=== PATIENT | female | born 1950 | race Caucasian/White ===

== ENCOUNTER → 2016-10-04 | Outpatient (CLI) | payer MEDICARE, OTHER ==
[2016-10-04 08:13] LABS: Anion Gap 10 mmol/L; Blood Urea Nitrogen 17 mg/dL (7-17); Calcium 9.5 mg/dL (8.4-10.2); Carbon Dioxide 26 mmol/L (22-30); Chloride 105 mmol/L (98-107); Cholesterol 228 mg/dL (<200); Glucose 105 mg/dL (74-99); HDL Cholesterol 63 mg/dL (40-60); Non-African American GFR(MDRD) >60 (>60 ml/min/1.73 sqM); Potassium 4.4 mmol/L (3.5-5.1); Sodium 141 mmol/L (137-145); Triglycerides 120 mg/dL (<150)
[2016-10-04 08:46] LABS: Hemoglobin A1C 6.2 % (4.2-6.1)
== END | disposition home or self-care (01) ==
LOC: LABWHC1 07:06
PROVIDERS: ATTEND Internal Medicine
DX: E78.2 Mixed hyperlipidemia (principal); E11.9 Type 2 diabetes mellitus without complications; I11.9 Hypertensive heart disease without heart failure
CPT/HCPCS: 36415; 80048; 80061; 82043; 83036

== ENCOUNTER → 2016-12-11 | Outpatient (CLI) | payer MEDICARE ==
--- NOTE | 2016-12-11 10:48 | XR ---
EXAMINATION TYPE: XR chest 2V DATE OF EXAM: 12/11/2016 COMPARISON: October 29, 2013 HISTORY: Shortness of breath TECHNIQUE: Frontal and lateral views of the chest are obtained. FINDINGS: Scattered senescent parenchymal changes noted. Hyperinflation compatible with COPD. MediPort catheter is unchanged in position. No evidence for infiltrate. No evidence for atelectasis. Heart size is stable. Mediastinal structures are stable and grossly unremarkable. No evidence for hilar prominence. Degenerative changes dorsal spine. IMPRESSION: 1. No evidence for acute pulmonary disease.
== END | disposition home or self-care (01) ==
LOC: RADXRMAIN 10:11
PROVIDERS: ATTEND Internal Medicine
DX: R07.81 Pleurodynia (principal); Z87.828 Personal history of other (healed) physical injury and trauma
CPT/HCPCS: 71020

== ENCOUNTER → 2017-01-14 | Outpatient (CLI) | payer MEDICARE ==
--- NOTE | 2017-01-14 14:27 | MM ---
Reason for exam: additional evaluation requested from prior study. Last mammogram was performed 1 year and 1 month ago. History: Patient is postmenopausal and has history of breast cancer at age 61. Malignant right mammotome panel of the right breast, July 31, 2012. Chemotherapy, 2012. Mastectomy of the right breast. Taking antineoplastic for 5 years beginning at age 61. Physical Findings: Nurse did not find any significant physical abnormalities on exam. MG 3D Diag Mammo W/Cad LT CC and MLO view(s) were taken of the left breast. Prior study comparison: December 12, 2015, left breast MG 3d diag mammo w/cad LT. October 13, 2014, left breast MG diagnostic mammo LT w CAD. The breast tissue is heterogeneously dense. This may lower the sensitivity of mammography. Benign calcifications. There is no discrete abnormality. No significant new findings when compared with previous films. These results were verbally communicated with the patient and result sheet given to the patient on 01/14/17. ASSESSMENT: Benign, BI-RAD 2 RECOMMENDATION: Follow-up diagnostic mammogram of the left breast in 1 year.
== END | disposition home or self-care (01) ==
LOC: RADMAMWWP 13:48
PROVIDERS: ATTEND Internal Medicine
DX: Z08 Encounter for follow-up examination after completed treatment for malignant neoplasm (principal); Z85.3 Personal history of malignant neoplasm of breast
CPT/HCPCS: G0206; G0279

== ENCOUNTER → 2017-06-25 | Outpatient (CLI) | payer MEDICARE ==
[2017-06-25 10:21] LABS: HCT 41.3 % (34.0-46.0); HGB 13.3 gm/dL (11.4-16.0); MCH 29.2 pg (25.0-35.0); MCHC 32.2 g/dL (31.0-37.0); MCV 90.6 fL (80.0-100.0); Mean Platelet Volume 7.6; Platelet Count 275 k/uL (150-450); RBC 4.56 m/uL (3.80-5.40); RDW 13.4 % (11.5-15.5); WBC 5.7 k/uL (3.8-10.6)
[2017-06-25 10:41] LABS: ALT 22 U/L (9-52); AST 23 U/L (14-36); Albumin 4.2 g/dL (3.5-5.0); Alkaline Phosphatase 85 U/L (38-126); Anion Gap 9 mmol/L; Blood Urea Nitrogen 14 mg/dL (7-17); Calcium 9.6 mg/dL (8.4-10.2); Carbon Dioxide 32 mmol/L (22-30); Chloride 102 mmol/L (98-107); Cholesterol 250 mg/dL (<200); Glucose 100 mg/dL (74-99); HDL Cholesterol 60 mg/dL (40-60); LDL Cholesterol,Calculated 149 mg/dL (0-99); Potassium 4.7 mmol/L (3.5-5.1); Sodium 143 mmol/L (137-145); Total Bilirubin 0.5 mg/dL (0.2-1.3); Total Protein 7.3 g/dL (6.3-8.2); Triglycerides 207 mg/dL (<150)
[2017-06-25 10:57] LABS: T4, Free (Free Thyroxine) 0.98 ng/dL (0.78-2.19)
== END | disposition home or self-care (01) ==
LOC: LABWHC1 09:34
PROVIDERS: ATTEND Internal Medicine
DX: I11.9 Hypertensive heart disease without heart failure (principal); E11.9 Type 2 diabetes mellitus without complications; K21.0 Gastro-esophageal reflux disease with esophagitis
CPT/HCPCS: 36415; 80053; 80061; 82043; 82570; 83036; 84439; 84443; 85027

== ENCOUNTER 2018-04-10 12:45 | Observation (INO) | payer MEDICARE, OTHER ==
[2018-04-10] MEDS ORDERED: ASPIRIN 81 MG PO STA (13:02)
[2018-04-10] MEDS ORDERED: NITROGLYCERIN OINT 1 INCH/GM PACKET TOPICAL STA (13:02)
--- NOTE | 2018-04-10 13:06 | ED ---
General Adult HPI - General Chief complaint: Chest Pain Stated complaint: chest pain Time Seen by Provider: 04/10/18 12:54 Source: patient, RN notes reviewed Mode of arrival: wheelchair Limitations: no limitations - History of Present Illness Initial comments: Patient is a pleasant 67-year-old female presenting to the emergency Department with complaints of chest discomfort. Onset of symptoms was a few days ago. Symptoms have been intermittent. Discomfort is right/central chest. There is some radiation towards the neck and arm. There is some mild associated dyspnea and mild nausea. Dyspnea does worsen with exertion. No history of similar symptoms previously. No diaphoresis. - Related Data Home Medications Medication Instructions Recorded Confirmed Cyanocobalamin (Vitamin B-12) 1,000 mcg PO DAILY 04/10/18 04/10/18 [Vitamin B-12] Losartan Potassium [Cozaar] 100 mg PO HS 04/10/18 04/10/18 Multivitamins, Thera [Multivitamin 1 tab PO DAILY 04/10/18 04/10/18 (formulary)] Allergies Allergy/AdvReac Type Severity Reaction Status Date / Time codeine Allergy Unknown Verified 04/10/18 13:21 meperidine HCl [From Demerol] Allergy Unknown Verified 04/10/18 13:21 morphine Allergy Unknown Verified 04/10/18 13:21 Penicillins Allergy Rash/Hives Verified 04/10/18 13:21 Review of Systems ROS Statement: Those systems with pertinent positive or pertinent negative responses have been documented in the HPI. ROS Other: All systems not noted in ROS Statement are negative. Constitutional: Denies: fever Eyes: Denies: eye pain ENT: Denies: ear pain Respiratory: Reports: as per HPI, dyspnea. Denies: cough Cardiovascular: Reports: as per HPI, chest pain Endocrine: Denies: fatigue Gastrointestinal: Denies: abdominal pain Genitourinary: Denies: dysuria Musculoskeletal: Denies: back pain Skin: Denies: rash Neurological: Denies: weakness Past Medical History Past Medical History: Cancer, Diabetes Mellitus, Hypertension Additional Past Medical History / Comment(s): right breast cancer in remission History of Any Multi-Drug Resistant Organisms: None Reported Past Surgical History: Cholecystectomy Additional Past Surgical History / Comment(s): right mastectomy Past Psychological History: No Psychological Hx Reported Smoking Status: Never smoker Past Alcohol Use History: None Reported Past Drug Use History: None Reported General Exam Limitations: no limitations General appearance: alert, in no apparent distress Head exam: Present: atraumatic Eye exam: Present: normal appearance Neck exam: Present: normal inspection Respiratory exam: Present: normal lung sounds bilaterally. Absent: chest wall tenderness Cardiovascular Exam: Present: regular rate, normal rhythm Expanded Peripheral pulses: 2+: Radial (R), Radial (L), Dorsalis Pedis (R), Dorsalis Pedis (L) GI/Abdominal exam: Present: soft. Absent: tenderness Extremities exam: Present: normal inspection. Absent: pedal edema, calf tenderness Neurological exam: Present: alert Psychiatric exam: Present: normal affect, normal mood Skin exam: Present: normal color Course Vital Signs 04/10/18 04/10/18 12:48 12:59 Temperature 97.9 F Pulse Rate 65 68 Respiratory 18 20 Rate Blood Pressure 186/110 O2 Sat by Pulse 97 97 Oximetry EKG Findings - EKG Comments: EKG Findings:: Normal sinus rhythm 64. OH 168. QRS 96. QT 444. QTC 458. Normal axis. Normal QRS. No acute ST change. Medical Decision Making - Medical Decision Making Patient reevaluated and resting comfortably in bed. Patient and family updated. - Lab Data Result diagrams: 04/10/18 13:10 04/10/18 13:10 Lab Results 04/10/18 04/10/18 04/10/18 Range/Units 13:10 13:10 13:10 WBC 6.1 (3.8-10.6) k/uL RBC 4.56 (3.80-5.40) m/uL Hgb 13.6 (11.4-16.0) gm/dL Hct 42.2 (34.0-46.0) % MCV 92.5 (80.0-100.0) fL MCH 29.8 (25.0-35.0) pg MCHC 32.3 (31.0-37.0) g/dL RDW 13.6 (11.5-15.5) % Plt Count 260 (150-450) k/uL Neutrophils % 55 % Lymphocytes % 35 % Monocytes % 5 % Eosinophils % 3 % Basophils % 0 % Neutrophils # 3.4 (1.3-7.7) k/uL Lymphocytes # 2.1 (1.0-4.8) k/uL Monocytes # 0.3 (0-1.0) k/uL Eosinophils # 0.2 (0-0.7) k/uL Basophils # 0.0 (0-0.2) k/uL PT (9.0-12.0) sec INR (<1.2) APTT (22.0-30.0) sec D-Dimer (<0.60) mg/L FEU Sodium 141 (137-145) mmol/L Potassium 4.1 (3.5-5.1) mmol/L Chloride 106 (98-107) mmol/L Carbon Dioxide 25 (22-30) mmol/L Anion Gap 10 mmol/L BUN 16 (7-17) mg/dL Creatinine 0.66 (0.52-1.04) mg/dL Est GFR (CKD-EPI)AfAm >90 (>60 ml/min/1.73 sqM) Est GFR (CKD-EPI)NonAf >90 (>60 ml/min/1.73 sqM) Glucose 96 (74-99) mg/dL Calcium 9.5 (8.4-10.2) mg/dL Magnesium 2.1 (1.6-2.3) mg/dL Total Bilirubin 0.5 (0.2-1.3) mg/dL AST 22 (14-36) U/L ALT 24 (9-52) U/L Alkaline Phosphatase 73 (38-126) U/L Total Creatine Kinase 37 (30-135) U/L CK-MB (CK-2) 0.6 (0.0-2.4) ng/mL CK-MB (CK-2) Rel Index 1.6 Troponin I <0.012 (0.000-0.034) ng/mL Total Protein 7.3 (6.3-8.2) g/dL Albumin 4.2 (3.5-5.0) g/dL /14/18 Range/Units 13:10 WBC (3.8-10.6) k/uL RBC (3.80-5.40) m/uL Hgb (11.4-16.0) gm/dL Hct (34.0-46.0) % MCV (80.0-100.0) fL MCH (25.0-35.0) pg MCHC (31.0-37.0) g/dL RDW (11.5-15.5) % Plt Count (150-450) k/uL Neutrophils % % Lymphocytes % % Monocytes % % Eosinophils % % Basophils % % Neutrophils # (1.3-7.7) k/uL Lymphocytes # (1.0-4.8) k/uL Monocytes # (0-1.0) k/uL Eosinophils # (0-0.7) k/uL Basophils # (0-0.2) k/uL PT 10.6 (9.0-12.0) sec INR 1.0 (<1.2) APTT 25.8 (22.0-30.0) sec D-Dimer 0.49 (<0.60) mg/L FEU Sodium (137-145) mmol/L Potassium (3.5-5.1) mmol/L Chloride (98-107) mmol/L Carbon Dioxide (22-30) mmol/L Anion Gap mmol/L BUN (7-17) mg/dL Creatinine (0.52-1.04) mg/dL Est GFR (CKD-EPI)AfAm (>60 ml/min/1.73 sqM) Est GFR (CKD-EPI)NonAf (>60 ml/min/1.73 sqM) Glucose (74-99) mg/dL Calcium (8.4-10.2) mg/dL Magnesium (1.6-2.3) mg/dL Total Bilirubin (0.2-1.3) mg/dL AST (14-36) U/L ALT (9-52) U/L Alkaline Phosphatase (38-126) U/L Total Creatine Kinase (30-135) U/L CK-MB (CK-2) (0.0-2.4) ng/mL CK-MB (CK-2) Rel Index Troponin I (0.000-0.034) ng/mL Total Protein (6.3-8.2) g/dL Albumin (3.5-5.0) g/dL - Radiology Data Radiology results: image reviewed (Hip and pelvis and chest x-ray reveal no acute injury.) Disposition Clinical Impression: Contusion, hip Disposition: HOME SELF-CARE Condition: Stable Instructions: Hip Sprain (ED) Additional Instructions: Please follow-up with primary care physician in the next couple days for recheck. Return for weakness, difficulty breathing, other areas of pain or concern or worsening symptoms. [id number] Tylenol if needed. Is patient prescribed a controlled substance at d/c from ED?: No Referrals: Edinson Rebolledo DO [Primary Care Provider] - 1-2 days Time of Disposition: 15:10
--- NOTE | 2018-04-10 13:32 | XR ---
EXAMINATION TYPE: XR chest 2V DATE OF EXAM: 04/10/2018 COMPARISON: Prior chest x-ray 12/11/2016 HISTORY: Right-sided chest pain TECHNIQUE: Frontal and lateral views of the chest are obtained. FINDINGS: Port-A-Cath is again noted the right pectoral region, there is a loop at the level of the m edial aspect of the right clavicle, distal tip of the catheter is overlying the superior vena cava. P atient is rotated. Lung volumes, aeration improved compared to prior. There are overlying cardiac vi ds. There is no focal air space opacity, pleural effusion, or pneumothorax seen. The cardiac silhoue tte size is within normal limits. The osseous structures are intact. IMPRESSION: No acute cardiopulmonary process.
[2018-04-10 13:44] LABS: Basophils % (A) 0 %; Eosinophils # (A) 0.2 k/uL (0-0.7); Eosinophils % (A) 3 %; HCT 42.2 % (34.0-46.0); HGB 13.6 gm/dL (11.4-16.0); Lymphocytes # (A) 2.1 k/uL (1.0-4.8); Lymphocytes % (A) 35 %; MCH 29.8 pg (25.0-35.0); MCHC 32.3 g/dL (31.0-37.0); MCV 92.5 fL (80.0-100.0); Mean Platelet Volume 7.2; Monocytes # (A) 0.3 k/uL (0-1.0); Monocytes % (A) 5 %; Neutrophils # (A) 3.4 k/uL (1.3-7.7); Neutrophils % (A) 55 %; Platelet Count 260 k/uL (150-450); RBC 4.56 m/uL (3.80-5.40); RDW 13.6 % (11.5-15.5); WBC 6.1 k/uL (3.8-10.6)
[2018-04-10 14:01] LABS: D-Dimer 0.49 mg/L FEU (<0.60); Partial Thromboplastin Time 25.8 sec (22.0-30.0); Prothrombin Time 10.6 sec (9.0-12.0)
[2018-04-10 14:04] LABS: ALT 24 U/L (9-52); AST 22 U/L (14-36); Albumin 4.2 g/dL (3.5-5.0); Alkaline Phosphatase 73 U/L (38-126); Anion Gap 10 mmol/L; Blood Urea Nitrogen 16 mg/dL (7-17); Calcium 9.5 mg/dL (8.4-10.2); Carbon Dioxide 25 mmol/L (22-30); Chloride 106 mmol/L (98-107); Creatine Kinase 37 U/L (30-135); Glucose 96 mg/dL (74-99); Magnesium 2.1 mg/dL (1.6-2.3); Potassium 4.1 mmol/L (3.5-5.1); Sodium 141 mmol/L (137-145); Total Bilirubin 0.5 mg/dL (0.2-1.3); Total Protein 7.3 g/dL (6.3-8.2)
[2018-04-10 14:17] LABS: Creatine Kinase MB 0.6 ng/mL (0.0-2.4); Troponin I <0.012 ng/mL (0.000-0.034)
[2018-04-10] MEDS ORDERED: NITROGLYCERIN SL TABS 0.4 MG TAB SUBLINGUAL PRN (16:00)
--- NOTE | 2018-04-10 16:00 | ED ---
Medical Decision Making - Medical Decision Making Patient reevaluated and resting comfortably in bed. No significant discomfort at this time. Patient and family updated on results and plan. Case was discussed with Dr. gonzalez, who will admit covering for Dr. Erazo - Lab Data Result diagrams: 04/10/18 13:10 04/10/18 13:10 Lab Results 04/10/18 04/10/18 04/10/18 Range/Units 13:10 13:10 13:10 WBC 6.1 (3.8-10.6) k/uL RBC 4.56 (3.80-5.40) m/uL Hgb 13.6 (11.4-16.0) gm/dL Hct 42.2 (34.0-46.0) % MCV 92.5 (80.0-100.0) fL MCH 29.8 (25.0-35.0) pg MCHC 32.3 (31.0-37.0) g/dL RDW 13.6 (11.5-15.5) % Plt Count 260 (150-450) k/uL Neutrophils % 55 % Lymphocytes % 35 % Monocytes % 5 % Eosinophils % 3 % Basophils % 0 % Neutrophils # 3.4 (1.3-7.7) k/uL Lymphocytes # 2.1 (1.0-4.8) k/uL Monocytes # 0.3 (0-1.0) k/uL Eosinophils # 0.2 (0-0.7) k/uL Basophils # 0.0 (0-0.2) k/uL PT (9.0-12.0) sec INR (<1.2) APTT (22.0-30.0) sec D-Dimer (<0.60) mg/L FEU Sodium 141 (137-145) mmol/L Potassium 4.1 (3.5-5.1) mmol/L Chloride 106 (98-107) mmol/L Carbon Dioxide 25 (22-30) mmol/L Anion Gap 10 mmol/L BUN 16 (7-17) mg/dL Creatinine 0.66 (0.52-1.04) mg/dL Est GFR (CKD-EPI)AfAm >90 (>60 ml/min/1.73 sqM) Est GFR (CKD-EPI)NonAf >90 (>60 ml/min/1.73 sqM) Glucose 96 (74-99) mg/dL Calcium 9.5 (8.4-10.2) mg/dL Magnesium 2.1 (1.6-2.3) mg/dL Total Bilirubin 0.5 (0.2-1.3) mg/dL AST 22 (14-36) U/L ALT 24 (9-52) U/L Alkaline Phosphatase 73 (38-126) U/L Total Creatine Kinase 37 (30-135) U/L CK-MB (CK-2) 0.6 (0.0-2.4) ng/mL CK-MB (CK-2) Rel Index 1.6 Troponin I <0.012 (0.000-0.034) ng/mL Total Protein 7.3 (6.3-8.2) g/dL Albumin 4.2 (3.5-5.0) g/dL // Range/Units 13:10 WBC (3.8-10.6) k/uL RBC (3.80-5.40) m/uL Hgb (11.4-16.0) gm/dL Hct (34.0-46.0) % MCV (80.0-100.0) fL MCH (25.0-35.0) pg MCHC (31.0-37.0) g/dL RDW (11.5-15.5) % Plt Count (150-450) k/uL Neutrophils % % Lymphocytes % % Monocytes % % Eosinophils % % Basophils % % Neutrophils # (1.3-7.7) k/uL Lymphocytes # (1.0-4.8) k/uL Monocytes # (0-1.0) k/uL Eosinophils # (0-0.7) k/uL Basophils # (0-0.2) k/uL PT 10.6 (9.0-12.0) sec INR 1.0 (<1.2) APTT 25.8 (22.0-30.0) sec D-Dimer 0.49 (<0.60) mg/L FEU Sodium (137-145) mmol/L Potassium (3.5-5.1) mmol/L Chloride (98-107) mmol/L Carbon Dioxide (22-30) mmol/L Anion Gap mmol/L BUN (7-17) mg/dL Creatinine (0.52-1.04) mg/dL Est GFR (CKD-EPI)AfAm (>60 ml/min/1.73 sqM) Est GFR (CKD-EPI)NonAf (>60 ml/min/1.73 sqM) Glucose (74-99) mg/dL Calcium (8.4-10.2) mg/dL Magnesium (1.6-2.3) mg/dL Total Bilirubin (0.2-1.3) mg/dL AST (14-36) U/L ALT (9-52) U/L Alkaline Phosphatase (38-126) U/L Total Creatine Kinase (30-135) U/L CK-MB (CK-2) (0.0-2.4) ng/mL CK-MB (CK-2) Rel Index Troponin I (0.000-0.034) ng/mL Total Protein (6.3-8.2) g/dL Albumin (3.5-5.0) g/dL - Radiology Data Radiology results: image reviewed (Chest x-ray shows no acute process) Disposition Clinical Impression: Chest pain Disposition: ADMITTED IP TO THIS HOSP Is patient prescribed a controlled substance at d/c from ED?: No Referrals: Edinson Rebolledo DO [Primary Care Provider] - 1-2 days Decision Time: 15:59
[2018-04-10] MEDS ORDERED: ATENOLOL 25 MG TAB PO STA (16:04)
[2018-04-10] MEDS ORDERED: TEMAZEPAM 15 MG CAP PO PRN (18:59)
[2018-04-10] MEDS: NITROGLYCERIN OINT 1 INCH/GM PACKET TOPICAL SCH (19:00)
[2018-04-10 19:27] LABS: Creatine Kinase 28 U/L (30-135)
[2018-04-10 19:39] LABS: Creatine Kinase MB 0.4 ng/mL (0.0-2.4); Troponin I <0.012 ng/mL (0.000-0.034)
--- NOTE | 2018-04-10 20:34 | HP ---
HISTORY AND PHYSICAL DATE OF SERVICE: 04/10/2018 CHIEF COMPLAINTS: Dizziness and headache. HISTORY OF PRESENT ILLNESS: This 67-year-old woman with a past medical history of asthma, diabetes, hypertension, DJD being followed by Dr. Rebolledo in the outpatient setting, was complaining of headache for the last couple of days. Patient felt also dizzy. Patient has episodes of short-term memory loss also 2 days ago. Otherwise, currently the patient complaining of right-sided chest pain around the site of her port and right shoulder, right upper arm pain, right neck pain. The patient came to [facility] and was admitted for further evaluation and treatment. There is no history of fever, rigors or chills. No history of any hematochezia, melena. PAST HISTORY: Asthma, diabetes, hypertension, DJD, sleep apnea, history of right breast cancer. MEDICATIONS ARE: 1. Multivitamins 1 p.o. daily. 2. Cozaar 100 mg q.h.s. 3. Vitamin B12 1000 mcg p.o. daily. ALLERGIES: CODEINE, DEMEROL, MORPHINE, PENICILLIN. FAMILY HISTORY: No history of heart disease or strokes in the family. SOCIAL HISTORY: Previous history of smoking. No history of alcohol intake. REVIEW OF SYSTEMS: ENT: As mentioned earlier. CARDIOVASCULAR as mentioned earlier. RESPIRATORY: As mentioned earlier. GI: No nausea or vomiting. no dysuria. CENTRAL NERVOUS SYSTEM: No numbness, weakness. ALLERGY/IMMUNOLOGY: No asthma or hayfever. MUSCULOSKELETAL as mentioned earlier. HEMATOLOGY/ONCOLOGY: No history of anemia. ENDOCRINE: No history of diabetes or hypothyroidism. CONSTITUTIONAL: As mentioned earlier. DERMATOLOGY: Negative. RHEUMATOLOGY: Negative. PSYCHIATRY: As mentioned earlier. PHYSICAL EXAM: Patient is alert, oriented x3. The pulse is 65, blood pressure 119/70, respiration 18, temperature 97.2, pulse ox 97% on room air. HEENT: Conjunctivae normal. Oral mucosa moist. NECK is no jugular venous distention. No carotid bruit. No lymph node enlargement. Cardiovascular system: S1, S2 muffled. RESPIRATORY: Breath sounds diminished in the bases. No rhonchi. No crackles. ABDOMEN: Soft, nontender. No mass palpable. LEGS: No edema. No swelling. Nervous system: Higher functions as mentioned earlier. Moves all four extremities. No focal deficits. Lymphatics: No lymph nodes palpable in the neck, axillae or groin. SKIN: No ulcer, rash or bleeding. LABS: CBC within normal limits. INR 1. CMP within normal limits. ASSESSMENT: 1. Chest pain possible unstable angina. 2. Rule out transient ischemic attack. 3. History of hypertension. 4. Asthma. 5. Diabetes mellitus type 2. 6. Degenerative joint disease. 7. Sleep apnea. 8. History of right breast cancer. 9. Right chest Port-A-Cath. 10.History of bariatric surgery. 11.History of cholecystectomy. RECOMMENDATIONS AND DISCUSSION: In this 67-year-old woman who presented with multiple medical problems. We will monitor the patient closely, continue the current medications, management and symptomatic treatment. At this time, I recommend resume the home medications. Unstable angina protocol. Antiplatelet agents. Otherwise, I would also recommend close follow up with Cardiology and Neurology. Guarded prognosis. Further recommendations to follow. A copy of dictation being forwarded to Dr. Rebolledo who is the primary physician. We will also obtain a full neurovascular workup as well. Further recommendations to follow. MMODL / IJN: [id number] / MTDD
[2018-04-10] MEDS ORDERED: ACETAMINOPHEN TAB 325 MG TAB PO STA (20:59)
--- NOTE | 2018-04-10 21:00 | US ---
EXAMINATION TYPE: US carotid duplex BILAT DATE OF EXAM: 04/10/2018 COMPARISON: CT Brain 2012 CLINICAL HISTORY: stroke. Headache, right arm and chest pain, twitching sensation to face and lips, m shira loss; prior smoker (quit 1984 per patient) EXAM MEASUREMENTS: RIGHT: Peak Systolic Velocity (PSV) cm/sec ----- Right CCA: 71.1 ----- Right ICA: 74.0 ----- Right ECA: 36.7 ICA/CCA ratio: 1.0 RIGHT: End Diastole cm/sec ----- Right CCA: 11.5 ----- Right ICA: 15.9 ----- Right ECA: 0.0 LEFT: Peak Systolic Velocity (PSV) cm/sec ----- Left CCA: 68.0 ----- Left ICA: 80.9 ----- Left ECA: 54.5 ICA/CCA ratio: 1.2 LEFT: End Diastole cm/sec ----- Left CCA: 10.9 ----- Left ICA: 16.0 ----- Left ECA: 0.0 VERTEBRALS (direction of flow): Right Vertebral: Antegrade Left Vertebral: Antegrade Rhythm: Normal Mild to moderate mixed wall plaque is noted at bilateral carotid bifurcation, but PSV is wnl bilatera lly. IMPRESSION: There is antegrade flow in the vertebral arteries. The images and measurements suggest 3 0% stenosis in both internal carotid arteries. Criteria for Assigning % of Stenosis / Diameter reduction (Estimation based on the indirect measurements of the internal carotid artery velocities (ICA PSV). 1. Normal (no stenosis)=ICA PSV < 125 cm/s: ratio < 2.0: ICA EDV<40 cm/s. 2. Less than 50% stenosis=ICA PSV < 125 cm/s: ratio < 2.0: ICA EDV<40 cm/s. 3. 50 to 69% stenosis=ICA PSV of 125 to 230 cm/s: ration 2.0 ? 4.0: ICA EDV 40-100 cm/s. 4. Greater than 70% stenosis to near occlusion= ICA PSV > 230 cm/s: ratio > 4.0: ICA EDV > 100 cm/s. 5. Near occlusion= ICA PSV velocities may be low or undetectable: variable ratio and ICA EDV. 6. Total occlusion=unable to detect flow.
[2018-04-10] MEDS: HEPARIN SODIUM,PORCINE 5,000 UNIT/ML 1 ML VIAL SQ SCH (21:05)
[2018-04-10] MEDS: LOSARTAN 50 MG TAB PO SCH (21:30)
[2018-04-10] MEDS: ALPRAZolam 0.25 MG TAB PO PRN (22:45)
[2018-04-11] MEDS: NITROGLYCERIN OINT 1 INCH/GM PACKET TOPICAL SCH ×2 (01:27→06:49)
[2018-04-11 01:51] LABS: Creatine Kinase 25 U/L (30-135)
[2018-04-11 02:02] LABS: Creatine Kinase MB 0.6 ng/mL (0.0-2.4); Troponin I <0.012 ng/mL (0.000-0.034)
[2018-04-11 06:41] LABS: Basophils % (A) 1 %; Eosinophils # (A) 0.2 k/uL (0-0.7); Eosinophils % (A) 3 %; HCT 40.7 % (34.0-46.0); HGB 12.8 gm/dL (11.4-16.0); Lymphocytes # (A) 1.9 k/uL (1.0-4.8); Lymphocytes % (A) 35 %; MCH 29.1 pg (25.0-35.0); MCHC 31.5 g/dL (31.0-37.0); MCV 92.3 fL (80.0-100.0); Mean Platelet Volume 7.4; Monocytes # (A) 0.3 k/uL (0-1.0); Monocytes % (A) 5 %; Neutrophils % (A) 55 %; Platelet Count 244 k/uL (150-450); RDW 13.5 % (11.5-15.5); WBC 5.4 k/uL (3.8-10.6)
[2018-04-11] MEDS: PANTOPRAZOLE 40 MG TABLET PO SCH (06:49)
[2018-04-11 07:06] LABS: Anion Gap 7 mmol/L; Blood Urea Nitrogen 16 mg/dL (7-17); Calcium 9.3 mg/dL (8.4-10.2); Carbon Dioxide 26 mmol/L (22-30); Chloride 106 mmol/L (98-107); Cholesterol 242 mg/dL (<200); Glucose 102 mg/dL (74-99); HDL Cholesterol 49 mg/dL (40-60); LDL Cholesterol,Calculated 147 mg/dL (0-99); Potassium 4.3 mmol/L (3.5-5.1); Sodium 139 mmol/L (137-145); Triglycerides 232 mg/dL (<150)
[2018-04-11] MEDS: HEPARIN SODIUM,PORCINE 5,000 UNIT/ML 1 ML VIAL SQ SCH ×2 (07:35→20:05)
[2018-04-11] MEDS: CYANOCOBALAMIN 500 MCG TAB PO SCH (07:35)
[2018-04-11] MEDS: ASPIRIN 325 MG TAB PO SCH (07:35)
--- NOTE | 2018-04-11 09:40 | ECHOF ---
Referral Reason:Stroke MEASUREMENTS -------- HEIGHT: 165.1 cm WEIGHT: 90.7 kg BP: RVIDd: 3.1 cm (< 3.3) IVSd: 1.6 cm (0.6 - 1.1) LVIDd: 4.3 cm (3.9 - 5.3) LVPWd: 1.5 cm (0.6 - 1.1) IVSs: 1.9 cm LVIDs: 2.0 cm LVPWs: 2.2 cm LAESV Index (A-L): 29.23 ml/m Ao Diam: 3.5 cm (2.0 - 3.7) AV Cusp: 2.3 cm (1.5 - 2.6) LA Diam: 3.1 cm (2.7 - 3.8) MV EXCURSION: 14.230 mm (> 18.000) MV EF SLOPE: 64 mm/s (70 - 150) EPSS: 0.3 cm MV E Chang: 0.90 m/s MV DecT: 296 ms MV A Chang: 1.26 m/s MV E/A Ratio: 0.71 RAP: 5.00 mmHg RVSP: 33.50 mmHg FINDINGS -------- Sinus rhythm. This was a technically good study. The left ventricular size is normal. There is moderate concentric left ventricular hypertrophy. O verall left ventricular systolic function is normal with, an EF between 55 - 60 %. The right ventricle is normal in size. LA is midly dilated 29-33ml/m2. The right atrium is normal in size. The aortic valve is trileaflet and appears structurally normal. The mitral valve leaflets are mildly thickened. Mild mitral regurgitation is present. Mild tricuspid regurgitation present. The right ventricular systolic pressure, as measured by Doppl er, is 33.50mmHg. The pulmonic valve was not well visualized. The aortic root size is normal. Normal inferior vena cava with normal inspiratory collapse consistent with estimated right atrial pre ssure of 5 mmHg. The pericardium is normal. CONCLUSIONS -------- 1. Sinus rhythm. 2. This was a technically good study. 3. The left ventricular size is normal. 4. There is moderate concentric left ventricular hypertrophy. 5. Overall left ventricular systolic function is normal with, an EF between 55 - 60 %. 6. The right ventricle is normal in size. 7. LA is midly dilated 29-33ml/m2. 8. The right atrium is normal in size. 9. The aortic valve is trileaflet and appears structurally normal. 10. The mitral valve leaflets are mildly thickened. 11. Mild mitral regurgitation is present. 12. Mild tricuspid regurgitation present. 13. The right ventricular systolic pressure, as measured by Doppler, is 33.50mmHg. 14. The pulmonic valve was not well visualized. 15. The aortic root size is normal. 16. Normal inferior vena cava with normal inspiratory collapse consistent with estimated right atrial pressure of 5 mmHg. 17. The pericardium is normal. HAM CURER: Ellie Collins RDCS
[2018-04-11] MEDS: ALPRAZolam 0.25 MG TAB PO PRN (10:55)
[2018-04-11] MEDS: MULTIVITAMINS, THERA 1 EACH TAB PO SCH (12:45)
[2018-04-11] MEDS: ATORVASTATIN 40 MG TAB PO SCH (12:45)
[2018-04-11] MEDS: amLODIPine 5 MG TAB PO SCH (13:59)
--- NOTE | 2018-04-11 14:39 | P.CONS ---
History of Present Illness - Reason for Consult Consult date: 04/11/18 TIA - Chief Complaint Episode of short-term memory loss - History of Present Illness This pleasant 67-year-old female being evaluated by the neurology service for the above complaints. She came to the [facility] emergency room with some central to right sided chest pain happening over the last couple days. In the ER she gave a history of an episode about 2 days ago lasting several minutes where she could not remember the name of a person whom she cares for daily for the last 5 years. She has had a mild to moderate band type headache for about 5 days now. She has significant history of breast cancer in by her history she admits she has not followed up as she should with Dr. Hall. She does have a port on the right side of the chest which she says should've been taken out by now. She had a normal echocardiogram. CT of the head was done and showed no acute intracranial abnormalities. At the time my exam she is resting comfortably in bed in no acute distress. She has no new neurological symptoms. Review of Systems All systems: negative Constitutional: Reports as per HPI Past Medical History Past Medical History: Asthma, Cancer, Diabetes Mellitus, Hypertension, Osteoarthritis (OA), Sleep Apnea/CPAP/BIPAP Additional Past Medical History / Comment(s): 2012 right breast cancer had sx and chemo (in remission),diabetic retinopathy,upper gi bleed/anemia, back pain.migarines,meneirs disease, bronchitis. eileen-no longer muses cpap, occ sinus problems, 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 benedicto wrist fx- no sx only casted. History of Any Multi-Drug Resistant Organisms: None Reported Past Surgical History: Bariatric Surgery, Cholecystectomy Additional Past Surgical History / Comment(s): rt breast core bx,right mastectomy, tummy tuck, liposuction,hiatal hernia repair Past Anesthesia/Blood Transfusion Reactions: Postoperative Nausea & Vomiting ( PONV) Past Psychological History: No Psychological Hx Reported Smoking Status: Former smoker Past Alcohol Use History: None Reported Additional Past Alcohol Use History / Comment(s): started smoking 1965 and quit 1983 smoked 1/2 ppd Past Drug Use History: None Reported - Past Family History Father History Unknown: Yes Mother History Unknown: Yes Medications and Allergies Home Medications Medication Instructions Recorded Confirmed Type Cyanocobalamin (Vitamin B-12) 1,000 mcg PO DAILY 04/10/18 04/10/18 History [Vitamin B-12] Losartan Potassium [Cozaar] 100 mg PO HS 04/10/18 04/10/18 History Multivitamins, Thera [Multivitamin 1 tab PO DAILY 04/10/18 04/10/18 History (formulary)] Allergies Allergy/AdvReac Type Severity Reaction Status Date / Time codeine Allergy Unknown Verified 04/10/18 13:21 meperidine HCl [From Demerol] Allergy Unknown Verified 04/10/18 13:21 morphine Allergy Unknown Verified 04/10/18 13:21 Penicillins Allergy Rash/Hives Verified 04/10/18 13:21 Physical Exam Vitals: Vital Signs Temp Pulse Pulse Resp BP BP Pulse Ox 04/11/18 12:48 172/84 04/11/18 12:00 59 L 18 172/91 94 L 04/11/18 07:31 97.7 F 56 L 18 155/88 94 L 04/11/18 04:00 65 16 108/64 99 04/10/18 23:11 68 16 04/10/18 23:09 97.8 F 68 16 128/65 99 04/10/18 22:16 97.9 F 56 L 18 130/79 95 04/10/18 21:02 97.9 F 61 18 142/82 94 L 04/10/18 19:18 98.7 F 59 L 18 140/83 94 L 04/10/18 17:03 85 18 150/88 99 04/10/18 15:57 70 18 156/103 94 L Intake and Output 04/10/18 04/11/18 04/11/18 22:59 06:59 14:59 Intake Total 480 600 Balance 480 600 Intake: Oral 480 600 Other: Voiding Method Toilet # Voids 2 1 Weight 93.3 kg - Constitutional General appearance: average body habitus, cooperative, no acute distress - EENT Eyes: no abnormal pupil, EOMI, PERRLA, no ptosis ENT: hearing grossly normal - Neck Neck: no normal ROM, rigidity - Respiratory Respiratory: negative: prolonged expiration, prolonged inspiration - Cardiovascular Rhythm: regular - Gastrointestinal General gastrointestinal: no distended, no tenderness - Neurologic The patient is alert awake and oriented 3. Speech and language are normal. There is no facial asymmetry. Strength is 5 out of 5 in bilateral upper and lower extremities. There is no sensory deficit. No tremors or seizures are seen. Cranial nerves II through XII are intact globally. Results CBC & Chem 7: 04/11/18 05:56 04/11/18 05:56 Labs: Abnormal Lab Results - Last 24 Hours (Table) 04/10/18 04/11/18 04/11/18 Range/Units 18:52 00:52 05:56 Glucose 102 H (74-99) mg/dL Total Creatine Kinase 28 L 25 L (30-135) U/L Triglycerides 232 H (<150) mg/dL Cholesterol 242 H (<200) mg/dL LDL Cholesterol, Calc 147 H (0-99) mg/dL Assessment and Plan (1) TIA (transient ischemic attack) Current Visit: Yes Status: Suspected Code(s): G45.9 - TRANSIENT CEREBRAL ISCHEMIC ATTACK, UNSPECIFIED SNOMED Code(s): 185721032 (2) Hyperlipidemia Current Visit: Yes Status: Chronic Code(s): E78.5 - HYPERLIPIDEMIA, UNSPECIFIED SNOMED Code(s): 55758043 (3) Diabetes Current Visit: Yes Status: Chronic Code(s): E11.9 - TYPE 2 DIABETES MELLITUS WITHOUT COMPLICATIONS SNOMED Code(s): 29950268 (4) History of breast cancer Current Visit: Yes Status: Chronic Code(s): Z85.3 - PERSONAL HISTORY OF MALIGNANT NEOPLASM OF BREAST SNOMED Code(s): 613869439 (5) New persistent daily headache Current Visit: Yes Status: Acute Code(s): G44.52 - NEW DAILY PERSISTENT HEADACHE (NDPH) SNOMED Code(s): 000852015483321 (6) Port-A-Cath in place Current Visit: Yes Status: Chronic Code(s): Z95.828 - PRESENCE OF OTHER VASCULAR IMPLANTS AND GRAFTS SNOMED Code(s): 032520274 (7) Chest pain Current Visit: Yes Status: Acute Code(s): R07.9 - CHEST PAIN, UNSPECIFIED SNOMED Code(s): 62657871 Plan: Her symptoms are consistent with a subacute transient ischemic attack. Continue Lipitor and aspirin at current doses. Continue investigation into reason for her right-sided chest and arm pain. For her persistent headaches and a person without a history of headaches, and given her history of cancer, I will order an MRI of the brain with and without contrast. We will continue to follow and make recommendations based on the above studies. I have performed a history and physical on the above patient. I have reviewed the above note, and agree.
--- NOTE | 2018-04-11 15:58 | MR ---
EXAMINATION TYPE: MR brain wo/w con DATE OF EXAM: 04/11/2018 COMPARISON: None HISTORY: Headache, facial numbness, hx breast ca TECHNIQUE: Multiplanar, multisequence images of the brain and brainstem is performed without and with IV contras t, utilizing 9 mL intravenous Gadavist . FINDINGS: There is mild cerebral cortical atrophy. There is no mass effect nor midline shift. There i s no sign of intracranial hemorrhage. There is no evidence of cortical infarct. There are scattered F LAIR image foci of increased signal at the arce-white matter junction both cerebral hemispheres. Tota l number is approximately 10 in these measure up to 5 mm. The brainstem is intact. Corpus callosum is intact. Sella turcica appears normal. Contrast images show no pathologic enhancement. There is normal contrast opacification of the venous sinuses. There is mucus retention cyst in the right maxillary sinus. IMPRESSION: Scattered small white matter high signal foci are nonspecific and probably related to mil d chronic small vessel ischemia. No acute intracranial abnormality. No evidence of metastatic disease . Minimal cerebral atrophy.
[2018-04-11 20:01] VITALS: RESP 16
[2018-04-11] MEDS: LOSARTAN 50 MG TAB PO SCH (20:05)
--- NOTE | 2018-04-11 22:26 | PN ---
PROGRESS NOTE DATE OF SERVICE: 04/11/2018 DATE OF SERVICE: This 67-year-old woman who was admitted with multiple symptomatology including chest pain, features of TIA, is being closely monitored. MRI did not show an acute stroke. The lipids were elevated. Neurology and cardiology following the patient closely. EXAM: Alert and oriented x3. Pulse 62, blood pressure 139/77, respirations 18, temperature 97.7, pulse ox 94% on room air. HEENT: Conjunctivae normal. Neck: No jugular venous distention. Cardiovascular: S1, S2 muffled. Respirations: Breath sounds diminished in the bases. No rhonchi. No crackles. Abdomen is soft. Nervous system: No focal deficits. LABORATORY DATA: CBC, BMP within normal limits and triglycerides are 232. Cholesterol 242. ASSESSMENT: 1. Chest pain possible unstable angina, myocardial infarction ruled out. 2. Possible acute transient ischemic attack. 3. Right-sided chest pain for evaluation. 4. Hypertension. 5. Asthma. 6. Diabetes mellitus type 2. 7. Degenerative joint disease. 8. Sleep apnea. 9. History of right breast cancer. 10.History of right chest Port-A-Cath. 11.History of bariatric surgery. 12.History of cholecystectomy. RECOMMENDATIONS AND DISCUSSION: Recommend to continue current management. Continue with monitoring, symptomatic treatment. I recommend D-dimer and if it is positive, a CT angio of the chest. Otherwise, prognosis guarded because of multiple complex medical issues and further recommendations to follow. MMODL / IJN: [id number] /
--- NOTE | 2018-04-11 23:14 | CONS ---
CONSULTATION Eden Pavon is a 67-year-old lady with a history of breast cancer. This lady apparently has a port on the right side of her chest for chemotherapy and she came into the hospital complaining of right-sided chest pain, especially tenderness and pain around her port site. However, she also had some right lateral chest discomfort and midsternal mild sharp pain and also there was some radiation to the neck as well and with these symptoms, she came into the hospital and I was asked to see her to assess if this pain represents any myocardial ischemia. She is resting comfortably at the time of my evaluation, and I had a detailed history from her. The quality of her pain seems very atypical, localized around the port area. There is no actual tenderness. She has no actual tenderness. There is some amount of neck discomfort but that does not seem to be connected. There are no signs of inflammation. This patient also had a D-dimer that was unremarkable and an echocardiogram was performed which I reviewed, revealed normal systolic function without any significant abnormalities. There is no significant pulmonary hypertension. She is resting comfortably without symptoms and troponins are normal. PAST MEDICAL HISTORY: 1. Hypertension. 2. History of breast cancer status post chemotherapy and she has a port. 3. She also has type 2 diabetes mellitus. 4. She is status post cholecystectomy. MEDICATIONS: At home include vitamin supplements, losartan, multivitamins. PHYSICAL EXAMINATION: Blood pressure was 150/80, pulse rate is about 70 per minute, regular. HEENT unremarkable. Fundus was not examined by me. Neck is supple. No JVD. I do not hear a carotid bruit. There is no thyromegaly. Heart exam reveals S1, S2 heard normally without a rub, murmur or gallop. There is no significant tenderness at the site of her port. Lungs are clear. Abdomen is soft, nontender. Lower extremities reveal normal pulses. No edema. Central nervous system is normal. EKG revealed sinus mechanism, no acute changes. LABORATORY DATA: Reveals that the troponins are normal. There is elevated cholesterol. No other significant abnormalities were detected. IMPRESSION: 1. Atypical chest pain. 2. Hypertension. 3. Hypercholesterolemia with LDL cholesterol of 147. RECOMMENDATIONS: I am recommending no intervention is necessary at this time. The patient can be discharged and I will be happy to see her as an outpatient and perform stress testing. If the port location continues to bother her, she can talk to her oncologist and have her port removed since she does not require any additional chemotherapy. I will recommend atorvastatin 20 mg daily in view of her hypercholesterolemia. Thank you very much for the consult. I will see her as needed. ERICK / SHILPI: [id number] /
[2018-04-12] MEDS: PANTOPRAZOLE 40 MG TABLET PO SCH (06:32)
[2018-04-12 07:00] LABS: Basophils % (A) 0 %; Eosinophils # (A) 0.1 k/uL (0-0.7); Eosinophils % (A) 2 %; HCT 40.4 % (34.0-46.0); HGB 12.9 gm/dL (11.4-16.0); Lymphocytes % (A) 33 %; MCH 29.7 pg (25.0-35.0); MCHC 31.9 g/dL (31.0-37.0); Mean Platelet Volume 7.2; Monocytes # (A) 0.4 k/uL (0-1.0); Monocytes % (A) 6 %; Neutrophils # (A) 3.4 k/uL (1.3-7.7); Neutrophils % (A) 56 %; Platelet Count 254 k/uL (150-450); RBC 4.34 m/uL (3.80-5.40); RDW 13.6 % (11.5-15.5); WBC 6.1 k/uL (3.8-10.6)
[2018-04-12 07:16] LABS: Anion Gap 4 mmol/L; Blood Urea Nitrogen 19 mg/dL (7-17); Calcium 9.1 mg/dL (8.4-10.2); Carbon Dioxide 29 mmol/L (22-30); Chloride 107 mmol/L (98-107); Glucose 101 mg/dL (74-99); Potassium 4.4 mmol/L (3.5-5.1); Sodium 140 mmol/L (137-145)
[2018-04-12] MEDS: HEPARIN SODIUM,PORCINE 5,000 UNIT/ML 1 ML VIAL SQ SCH (07:46)
[2018-04-12] MEDS: CYANOCOBALAMIN 500 MCG TAB PO SCH (07:46)
[2018-04-12] MEDS: amLODIPine 5 MG TAB PO SCH (07:46)
[2018-04-12] MEDS: ATORVASTATIN 40 MG TAB PO SCH (07:46)
[2018-04-12] MEDS: ASPIRIN 325 MG TAB PO SCH (07:46)
[2018-04-12] MEDS: ALPRAZolam 0.25 MG TAB PO PRN (07:46)
--- NOTE | 2018-04-12 11:51 | P.PN ---
Subjective Progress Note Date: 04/12/18 Principal diagnosis: TIA This pleasant 59-year-old female continuing be evaluated by the neurology service for the above complaints. Recall that her presenting symptom was right sided chest pain happening over a period of 2 days. She is still undergoing evaluation for this. She has significant history of right sided breast cancer she had undergone chemotherapy and still has a Port-A-Cath and. She indicated that it was already supposed to been taken out that she missed her appointment. No further neurological changes since my last exam. Cause of her history and some new headache activity we did an MRI of the brain. There were no acute intracranial abnormalities. There was no evidence of metastatic disease. She did have some nonspecific chronic small vessel ischemic changes. This was mild. At the time of my exam she is resting comfortably in bed in no acute distress. Objective - Vital Signs Vital signs: Vital Signs Temp 97.9 F 04/12/18 04:00 Pulse 68 04/12/18 04:00 Resp 16 04/12/18 04:00 BP 116/80 04/12/18 04:00 Pulse Ox 100 04/12/18 04:00 Intake & Output 04/11/18 04/12/18 04/12/18 18:59 06:59 18:59 Intake Total 1280 480 240 Balance 1280 480 240 Weight 93.2 kg Intake: Oral 1280 480 240 Other: Voiding Method Toilet # Voids 3 2 - Constitutional General appearance: Present: average body habitus, cooperative, no acute distress - EENT Eyes: Present: EOMI, PERRLA. Absent: abnormal pupil, ptosis ENT: Present: hearing grossly normal - Neck Neck: Present: normal ROM. Absent: rigidity - Respiratory Respiratory: negative: prolonged expiration, prolonged inspiration - Cardiovascular Rhythm: regular - Gastrointestinal General gastrointestinal: Absent: distended - Neurologic Neurologic Comment(s): The patient is alert awake and oriented 3. Speech and language are normal. There is no facial asymmetry. Strength is 5 out of 5 in bilateral upper and lower extremities. There is no sensory deficit. No tremors or seizures are seen. Cranial nerves II through XII are intact globally. - Labs CBC & Chem 7: 04/12/18 06:11 04/12/18 06:11 Labs: Abnormal Lab Results - Last 24 Hours (Table) 04/12/18 Range/Units 06:11 BUN 19 H (7-17) mg/dL Glucose 101 H (74-99) mg/dL Assessment and Plan (1) TIA (transient ischemic attack) Current Visit: Yes Status: Suspected Code(s): G45.9 - TRANSIENT CEREBRAL ISCHEMIC ATTACK, UNSPECIFIED SNOMED Code(s): 101790432 (2) Hyperlipidemia Current Visit: Yes Status: Chronic Code(s): E78.5 - HYPERLIPIDEMIA, UNSPECIFIED SNOMED Code(s): 54948213 (3) Diabetes Current Visit: Yes Status: Chronic Code(s): E11.9 - TYPE 2 DIABETES MELLITUS WITHOUT COMPLICATIONS SNOMED Code(s): 91336545 (4) History of breast cancer Current Visit: Yes Status: Chronic Code(s): Z85.3 - PERSONAL HISTORY OF MALIGNANT NEOPLASM OF BREAST SNOMED Code(s): 323501626 (5) New persistent daily headache Current Visit: Yes Status: Acute Code(s): G44.52 - NEW DAILY PERSISTENT HEADACHE (NDPH) SNOMED Code(s): 062326135441058 (6) Port-A-Cath in place Current Visit: Yes Status: Chronic Code(s): Z95.828 - PRESENCE OF OTHER VASCULAR IMPLANTS AND GRAFTS SNOMED Code(s): 966577759 (7) Chest pain Current Visit: Yes Status: Acute Code(s): R07.9 - CHEST PAIN, UNSPECIFIED SNOMED Code(s): 90986891 Plan: Her symptoms are consistent with a subacute transient ischemic attack. Continue Lipitor and aspirin at current doses. Continue investigation into reason for her right-sided chest and arm pain. For her persistent headaches and a person without a history of headaches, and given her history of cancer, I did order an MRI of the brain with and without contrast. No acute changes are metastasis were found. No further inpatient neurological workup is needed. May be called on as-needed basis for any change in her status. I have performed a history and physical on the above patient. I have reviewed the above note, and agree.
[2018-04-12] MEDS: MULTIVITAMINS, THERA 1 EACH TAB PO SCH (13:58)
[2018-04-12 16:14] VITALS: PULSE 71
[2018-04-12 16:17] VITALS: BP 118/78; TEMP 97.6
--- NOTE | 2018-04-13 00:24 | DS ---
DISCHARGE SUMMARY DATE OF SERVICE: 04/12/2018 FINAL DIAGNOSES: 1. Chest pain, possible musculoskeletal, myocardial infarction ruled out right-sided. 2. Possible acute transient ischemic attack. 3. Right sided chest pain. 4. Hypertension. 5. Anemia. 6. History of asthma. 7. History of diabetes type 2. 8. History of DJD, history of sleep apnea. 9. History of right breast cancer. 10.History of right chest Port-A-Cath. 11.History of bariatric surgery. 12.History of cholecystectomy. DISCHARGE DISPOSITION: The patient being discharged in stable condition with guarded prognosis. HISTORY OF PRESENT ILLNESS: This 67-year-old woman with a past history of multiple medical problems was admitted with chest pain, myocardial infarction ruled out. The patient also had a suspected possibility of TIA. Cardiology and neurology recommend outpatient follow up. The patient improved significantly. PHYSICAL EXAMINATION: On exam, vital signs stable. CARDIOVASCULAR: S1, S2 muffled. RESPIRATORY: Breath sounds diminished in the bases. CENTRAL NERVOUS SYSTEM: No focal deficits. DISCHARGE ADVICE AND MEDICATIONS: 1. Diet is cardiac diet. 2. Activity limited until followup. 3. Follow up with cardiology as advised. 4. Follow up with Dr. Edinson Rebolledo in 1-2 days. 5. Follow the Cardiology and neurologist as recommended. MEDICATIONS: 1. Vitamin B12 1000 mcg daily. 2. Cozaar 100 mg q.h.s. 3. Multivitamins 1 p.o. daily. 4. Norvasc 5 mg p.o. daily. 5. Ecotrin 81 mg. 6. Lipitor 40 mg p.o. daily. Please send a copy of dictation to Dr. Lee, Dr. Rebolledo, and Cardiology. The patient being discharged in stable condition with guarded prognosis. MMODL / IJN: [id number] /
== END 2018-04-12 16:00 | disposition home or self-care (01) ==
LOC: EC 12:45 → 1SOBS 16:00 → 3SCARD 22:19
PROVIDERS: ADMIT Internal Medicine; ATTEND Internal Medicine
DX: R07.89 Other chest pain (principal); R51 Headache; R41.3 Other amnesia; H81.09 Meniere's disease, unspecified ear; I10 Essential (primary) hypertension; J45.909 Unspecified asthma, uncomplicated; I65.23 Occlusion and stenosis of bilateral carotid arteries; M19.90 Unspecified osteoarthritis, unspecified site; G47.33 Obstructive sleep apnea (adult) (pediatric); Z99.89 Dependence on other enabling machines and devices; E78.00 Pure hypercholesterolemia, unspecified; E11.319 Type 2 diabetes mellitus with unspecified diabetic retinopathy without macular edema; M54.2 Cervicalgia; M25.511 Pain in right shoulder; M79.621 Pain in right upper arm; D64.9 Anemia, unspecified; E78.5 Hyperlipidemia, unspecified; Z79.899 Other long term (current) drug therapy; Z88.0 Allergy status to penicillin; Z88.5 Allergy status to narcotic agent; Z85.3 Personal history of malignant neoplasm of breast; Z90.49 Acquired absence of other specified parts of digestive tract; Z90.11 Acquired absence of right breast and nipple; Z95.828 Presence of other vascular implants and grafts; Z98.84 Bariatric surgery status; Z87.891 Personal history of nicotine dependence; Z92.21 Personal history of antineoplastic chemotherapy; Z86.69 Personal history of other diseases of the nervous system and sense organs; Z86.19 Personal history of other infectious and parasitic diseases
CPT/HCPCS: 96372 ×3; 99285; 36415; 93005 ×2; 93306; 85379; 80061; 80053; 80048 ×2; 82550 ×2; 82553 ×2; 83735; 84484 ×2; 85025 ×3; 85610; 85730; 87040; 71046; 93880; 70553; G0378 ×4; J1644 ×3; A9585

== ENCOUNTER → 2018-05-21 | Outpatient (CLI) | payer MEDICARE, OTHER ==
--- NOTE | 2018-05-24 10:24 | MM ---
Reason for exam: history of breast cancer, mastectomy. Last mammogram was performed 1 year and 4 months ago. History: Patient is postmenopausal and has history of breast cancer at age 61. Malignant right mammotome panel of the right breast, July 31, 2012. Chemotherapy, 2012. Mastectomy of the right breast. Taking antineoplastic for 5 years beginning at age 61. Physical Findings: Nurse did not find any significant physical abnormalities on exam. MG 3D Diag Mammo W/Cad LT CC, MLO, and XCCL view(s) were taken of the left breast. Prior study comparison: January 14, 2017, left breast MG 3d diag mammo w/cad LT. December 12, 2015, left breast MG 3d diag mammo w/cad LT. The breast tissue is heterogeneously dense. This may lower the sensitivity of mammography. No suspicious abnormality. These results were verbally communicated with the patient and result sheet given to the patient on 05/21/18. ASSESSMENT: Benign, BI-RAD 2 RECOMMENDATION: Follow-up diagnostic mammogram of the left breast in 1 year.
== END ==
LOC: RADMAMWWP 15:55
PROVIDERS: ATTEND Family Medicine
DX: Z08 Encounter for follow-up examination after completed treatment for malignant neoplasm (principal); Z85.3 Personal history of malignant neoplasm of breast
CPT/HCPCS: 77065; G0279; 77061

== ENCOUNTER → 2019-06-21 | Day surgery (SDC) | payer MEDICARE ==
[2019-06-17 09:44] VITALS: BMI 33.3
[~2019-06-21] MED LIST: LACTATED RINGERS 1,000 ML IV SCH; LIDOCAINE 1% 20 ML VIAL (10MG/ML) FOR IV START INTRADERMA PRN; PROPOFOL 10 MG/ML 20 ML VIAL IV ONE
[2019-06-21 07:21] VITALS: RESP 17; TEMP 97.5
[2019-06-21 07:51] LABS: Glucose,Whole Blood 108 mg/dL (75-99)
--- NOTE | 2019-06-21 08:33 | P.PCN ---
Date of Procedure: 06/21/19 Description of Procedure: BRIEF HISTORY: Patient is a 68-year-old female presenting for outpatient colonoscopy for screening for malignant neoplasm in the colon. No change in bowel habits, no abdominal pain, no family history of colon cancer. She does report intermittent bright red blood per rectum. PROCEDURE PERFORMED: Colonoscopy with polypectomy, Endoclip placement and tattoo. PREOPERATIVE DIAGNOSIS: Screening for malignant neoplasm of the colon, no prior colonoscopy. ESTIMATED BLOOD LOSS: Minimal. IV sedation per Anesthesia. PROCEDURE: After informed consent was obtained, the patient, was brought into the endoscopy unit. IV sedation was administered by Anesthesia under continuous monitoring. Digital rectal examination was normal. Initially the Olympus CF-190 flexible video colonoscope was then inserted in the rectum, gradually advanced into the cecum without any difficulty. Careful examination was performed as the scope was gradually being withdrawn. Ileocecal valve and the appendiceal orifice were visualized and appeared normal. The terminal ileum was intubated and appeared normal. Prep was excellent. Mucosa of the cecum, ascending colon, transverse colon, descending colon, sigmoid colon, and rectum appeared normal. Diminutive 2 mm sessile transverse colon polyp removed with cold forcep polypectomy. 2 diminutive hepatic flexure polyps measuring 1 and 2 mm removed with cold forcep polypectomy. Diminutive 2 mm polyp removed with cold forcep polypectomy. Large pedunculated 2 cm sigmoid polyp found approximately 40 cm from the anal verge removed with hot snare polypectomy and treated with Endo Clip placement as well as placement of a tattoo just proximal to the polypectomy site. Retroflexion was performed in the rectum and no lesions were seen, low grade internal hemorrhoids. The patient tolerated the procedure well. IMPRESSION: 4 diminutive polyps removed from the transverse colon, hepatic flexure and rectum with cold forcep polypectomy. Large pedunculated sigmoid colon polyp removed with hot snare polypectomy and status post Endo Clip placement and tattoo proximally to the lesion. RECOMMENDATIONS: Findings of this examination were discussed with the patient and her . Okay to resume diet. Okay to resume medications. Await pathology from polypectomy. Would recommend repeat colonoscopy in 3 years or sooner pending the pathology from polypectomy.
[2019-06-21 08:46] VITALS: BP 159/89; PULSE 61
== END ==
LOC: ORWHC2ENDO 06:39
PROVIDERS: ATTEND Internal Medicine
DX: Z12.11 Encounter for screening for malignant neoplasm of colon (principal); K63.5 Polyp of colon; D12.3 Benign neoplasm of transverse colon; D12.5 Benign neoplasm of sigmoid colon; K62.1 Rectal polyp; K64.8 Other hemorrhoids; I10 Essential (primary) hypertension; J45.909 Unspecified asthma, uncomplicated; G47.33 Obstructive sleep apnea (adult) (pediatric); E11.9 Type 2 diabetes mellitus without complications; M19.90 Unspecified osteoarthritis, unspecified site; E66.9 Obesity, unspecified; Z68.33 Body mass index [BMI] 33.0-33.9, adult; Z88.0 Allergy status to penicillin; Z88.5 Allergy status to narcotic agent; Z87.891 Personal history of nicotine dependence; Z79.899 Other long term (current) drug therapy; Z86.73 Personal history of transient ischemic attack (TIA), and cerebral infarction without residual deficits; Z90.11 Acquired absence of right breast and nipple; Z98.890 Other specified postprocedural states; Z90.49 Acquired absence of other specified parts of digestive tract; Z85.3 Personal history of malignant neoplasm of breast; Z92.21 Personal history of antineoplastic chemotherapy
CPT/HCPCS: 88305; 45380; 45385; 45381; J2704; 45382

== ENCOUNTER → 2019-07-07 | Outpatient (CLI) | payer MEDICARE ==
--- NOTE | 2019-07-07 14:17 | MM ---
Reason for exam: additional evaluation requested from prior study. Last mammogram was performed 1 year and 2 months ago. History: Patient is postmenopausal and has history of breast cancer at age 61. Malignant right mammotome panel of the right breast, July 31, 2012. Chemotherapy, 2012. Mastectomy of the right breast. Taking antineoplastic for 5 years beginning at age 61. Physical Findings: Nurse did not find any significant physical abnormalities on exam. MG 3D Diag Mammo W/Cad LT CC and MLO view(s) were taken of the left breast. Prior study comparison: May 21, 2018, left breast MG 3d diag mammo w/cad LT. January 14, 2017, left breast MG 3d diag mammo w/cad LT. The breast tissue is heterogeneously dense. This may lower the sensitivity of mammography. Benign appearing calcifications in the left breast. No suspicious abnormality. No significant new findings when compared with previous films. These results were verbally communicated with the patient and result sheet given to the patient on 07/07/19. ASSESSMENT: Benign, BI-RAD 2 RECOMMENDATION: Routine screening mammogram of the left breast in 1 year.
== END | disposition home or self-care (01) ==
LOC: RADMAMWWP 13:31
PROVIDERS: ATTEND Family Medicine
DX: Z08 Encounter for follow-up examination after completed treatment for malignant neoplasm (principal); Z85.3 Personal history of malignant neoplasm of breast
CPT/HCPCS: 77065; G0279; 77061

== ENCOUNTER 2020-08-11 11:18 | Emergency (ER) | payer MEDICARE ==
[2020-08-11] MEDS ORDERED: ONDANSETRON 4 MG/2 ML VIAL IVP STA (12:15)
[2020-08-11] MEDS ORDERED: SODIUM CHLORIDE 0.9% 1,000 ML IV STA (12:15)
--- NOTE | 2020-08-11 12:18 | XR ---
EXAMINATION TYPE: XR chest 2V DATE OF EXAM: 08/11/2020 COMPARISON: 04/10/2018 INDICATION: Cough short of breath weakness TECHNIQUE: Frontal and lateral views of the chest are obtained. FINDINGS: The heart size is normal. The pulmonary vasculature is normal. Some mild left and right apical infiltrate right lower lobe infiltrate is present.. IMPRESSION: 1. Nonspecific infiltrates. Correlate for atelectasis and atypical pneumonia
--- NOTE | 2020-08-11 12:54 | ED ---
General Adult HPI - General Chief complaint: Shortness of Breath Stated complaint: fever/chest burning/weak/sob Time Seen by Provider: 08/11/20 12:07 Source: patient Mode of arrival: ambulatory Limitations: no limitations - History of Present Illness Initial comments: Patient is a 69-year-old female with history of diabetes, hypertension, sleep apnea, presenting to the emergency Department with complaints of a productive cough for the last week. She states she's has burning in her chest when she coughs. It started about 5 days ago, she states she is unsure she's had fevers but does wake up in the mornings covered in sweat. She does feel mildly short of breath. She's had some mild nausea, no vomiting, some mild diarrhea as well. She denies any chest pains. She states she did have Covid in January of last year. She denies any recent travel, no pain in her legs. She has no further complaints at this time. Upon arrival to the ER, her vital signs are stable. - Related Data Home Medications Medication Instructions Recorded Confirmed Losartan Potassium 100 mg PO HS 06/17/19 08/11/20 Vitamin B Complex 1 cap PO DAILY 08/11/20 08/11/20 Zinc 50 mg PO DAILY 08/11/20 08/11/20 Previous Rx's Medication Instructions Recorded Azithromycin [Zithromax Z-pack (6 0 mg PO DIRECTED #1 pack 08/11/20 tabs)] Dexamethasone [Decadron] 6 mg PO DAILY 5 Days #5 tablet 08/11/20 Allergies Allergy/AdvReac Type Severity Reaction Status Date / Time codeine Allergy Unknown Verified 08/11/20 13:14 meperidine HCl [From Demerol] Allergy Unknown Verified 08/11/20 13:14 morphine Allergy Unknown Verified 08/11/20 13:14 Penicillins Allergy Rash/Hives Verified 08/11/20 13:14 Review of Systems ROS Statement: Those systems with pertinent positive or pertinent negative responses have been documented in the HPI. ROS Other: All systems not noted in ROS Statement are negative. 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 History of Any Multi-Drug Resistant Organisms: None Reported Past Surgical History: Bariatric Surgery, Breast Surgery, Cholecystectomy Additional Past Surgical History / Comment(s): rt breast core bx,right mastectomy, tummy tuck, liposuction,hiatal hernia repair,gastric bypass 1998,port removed Past Anesthesia/Blood Transfusion Reactions: Postoperative Nausea & Vomiting (PONV) Past Psychological History: Depression Smoking Status: Never smoker Past Alcohol Use History: Rare Past Drug Use History: None Reported - Past Family History Father History Unknown: Yes Family Medical History: No Reported History Mother History Unknown: Yes Family Medical History: No Reported History General Exam - General Exam Comments Initial Comments: GENERAL: Patient is well-developed and well-nourished. Patient is nontoxic and in no acute distress. HEAD: Atraumatic, normocephalic. EYES: Pupils equal round and reactive to light, extraocular movements intact, sclera anicteric, conjunctiva are normal. Eyelids were unremarkable. ENT: TMs normal, nares patent, oropharynx clear without exudates. Moist mucous membranes. NECK: Normal range of motion, supple without lymphadenopathy or JVD. LUNGS: Unlabored respirations. Breath sounds clear to auscultation bilaterally and equal. Very mild expiratory wheezes. HEART: Regular rate and rhythm without murmurs, rubs or gallops. ABDOMEN: Soft, nontender, normoactive bowel sounds. No guarding, no rebound. No masses appreciated. : Deferred MUSCULOSKELETAL: Normal extremities with adequate strength and normal range of motion, no pitting or edema. No clubbing or cyanosis. NEUROLOGICAL: Patient is alert and oriented x 3. Motor and sensory are also intact. Cranial nerves II through XII grossly intact. Symmetrical smile. Normal speech, normal gait. PSYCH: Normal mood, normal affect. SKIN: Warm, Dry, normal turgor, no rashes or lesions noted. Limitations: no limitations Course Vital Signs 08/11/20 08/11/20 08/11/20 11:21 12:07 12:55 Temperature 97.9 F Pulse Rate 78 70 Respiratory 20 20 20 Rate Blood Pressure 133/93 139/88 O2 Sat by Pulse 96 95 Oximetry 08/11/20 14:26 Temperature Pulse Rate 70 Respiratory 16 Rate Blood Pressure 136/75 O2 Sat by Pulse 96 Oximetry EKG Findings - EKG Comments: EKG Findings:: sinus rhythm with occasional PVCs, otherwise normal ECG, no signs of an acute process. Ventricular rate 73, TX interval 162, QT 380. Medical Decision Making - Medical Decision Making Patient is a 69-year-old female presenting with an increasing cough, congestion over the past week. No fevers. patient recovered from Covid of January last year. Her vital signs are stable upon arrival, EKG is normal limits. Labs have a slight white count 11.2 otherwise unremarkable. Chest x-ray shows nonspecific infiltrates, possible typical pneumonia. Patient's vital signs remained stable throughout her ER stay. I discussed with patient this could be a mild developing pneumonia. I will start patient on antibiotics as well as steroids. Patient is stable for discharge. Patient is in agreement with this plan of care. Return parameters were discussed with the patient and they verbalized understanding. Case discussed with Dr. Matta. - Lab Data Result diagrams: 08/11/20 12:44 08/11/20 12:44 Lab Results 08/11/20 08/11/20 08/11/20 Range/Units 11:31 12:44 12:44 WBC 11.2 H (3.8-10.6) k/uL RBC 4.83 (3.80-5.40) m/uL Hgb 15.1 (11.4-16.0) gm/dL Hct 44.0 (34.0-46.0) % MCV 91.2 (80.0-100.0) fL MCH 31.3 (25.0-35.0) pg MCHC 34.3 (31.0-37.0) g/dL RDW 13.0 (11.5-15.5) % Plt Count 348 (150-450) k/uL MPV 7.2 Neutrophils % 70 % Lymphocytes % 20 % Monocytes % 6 % Eosinophils % 2 % Basophils % 1 % Neutrophils # 7.8 H (1.3-7.7) k/uL Lymphocytes # 2.3 (1.0-4.8) k/uL Monocytes # 0.7 (0-1.0) k/uL Eosinophils # 0.2 (0-0.7) k/uL Basophils # 0.1 (0-0.2) k/uL Sodium 138 (137-145) mmol/L Potassium 4.3 (3.5-5.1) mmol/L Chloride 101 (98-107) mmol/L Carbon Dioxide 26 (22-30) mmol/L Anion Gap 11 mmol/L BUN 14 (7-17) mg/dL Creatinine 0.70 (0.52-1.04) mg/dL Est GFR (CKD-EPI)AfAm >90 (>60 ml/min/1.73 sqM) Est GFR (CKD-EPI)NonAf 88 (>60 ml/min/1.73 sqM) Glucose 120 H (74-99) mg/dL Plasma Lactic Acid Guero (0.7-2.0) mmol/L Calcium 9.8 (8.4-10.2) mg/dL Magnesium 2.1 (1.6-2.3) mg/dL Total Bilirubin 0.6 (0.2-1.3) mg/dL AST 23 (14-36) U/L ALT 17 (4-34) U/L Alkaline Phosphatase 87 (38-126) U/L Lactate Dehydrogenase 505 (313-618) U/L C-Reactive Protein 6.4 H (<1.0) mg/dL Total Protein 7.3 (6.3-8.2) g/dL Albumin 4.1 (3.5-5.0) g/dL Coronavirus (PCR) Not Detected (Not Detectd) 08/11/20 Range/Units 12:44 WBC (3.8-10.6) k/uL RBC (3.80-5.40) m/uL Hgb (11.4-16.0) gm/dL Hct (34.0-46.0) % MCV (80.0-100.0) fL MCH (25.0-35.0) pg MCHC (31.0-37.0) g/dL RDW (11.5-15.5) % Plt Count (150-450) k/uL MPV Neutrophils % % Lymphocytes % % Monocytes % % Eosinophils % % Basophils % % Neutrophils # (1.3-7.7) k/uL Lymphocytes # (1.0-4.8) k/uL Monocytes # (0-1.0) k/uL Eosinophils # (0-0.7) k/uL Basophils # (0-0.2) k/uL Sodium (137-145) mmol/L Potassium (3.5-5.1) mmol/L Chloride (98-107) mmol/L Carbon Dioxide (22-30) mmol/L Anion Gap mmol/L BUN (7-17) mg/dL Creatinine (0.52-1.04) mg/dL Est GFR (CKD-EPI)AfAm (>60 ml/min/1.73 sqM) Est GFR (CKD-EPI)NonAf (>60 ml/min/1.73 sqM) Glucose (74-99) mg/dL Plasma Lactic Acid Guero 1.2 (0.7-2.0) mmol/L Calcium (8.4-10.2) mg/dL Magnesium (1.6-2.3) mg/dL Total Bilirubin (0.2-1.3) mg/dL AST (14-36) U/L ALT (4-34) U/L Alkaline Phosphatase (38-126) U/L Lactate Dehydrogenase (313-618) U/L C-Reactive Protein (<1.0) mg/dL Total Protein (6.3-8.2) g/dL Albumin (3.5-5.0) g/dL Coronavirus (PCR) (Not Detectd) Disposition Clinical Impression: Pneumonia Disposition: HOME SELF-CARE Condition: Stable Instructions (If sedation given, give patient instructions): Pneumonia (ED) Additional Instructions: Please return to the Emergency Department if symptoms worsen or any other concerns. Take antibiotics and steroids as prescribed. Follow-up with your PCP. Prescriptions: Dexamethasone [Decadron] 6 mg PO DAILY 5 Days #5 tablet Azithromycin [Zithromax Z-pack (6 tabs)] 0 mg PO DIRECTED #1 pack Is patient prescribed a controlled substance at d/c from ED?: No Referrals: Edinson Rebolledo DO [Primary Care Provider] - 1-2 days Time of Disposition: 15:33
[2020-08-11 13:14] LABS: Basophils # (A) 0.1 k/uL (0-0.2); Basophils % (A) 1 %; Eosinophils # (A) 0.2 k/uL (0-0.7); Eosinophils % (A) 2 %; HGB 15.1 gm/dL (11.4-16.0); Lymphocytes # (A) 2.3 k/uL (1.0-4.8); Lymphocytes % (A) 20 %; MCH 31.3 pg (25.0-35.0); MCHC 34.3 g/dL (31.0-37.0); MCV 91.2 fL (80.0-100.0); Mean Platelet Volume 7.2; Monocytes # (A) 0.7 k/uL (0-1.0); Monocytes % (A) 6 %; Neutrophils # (A) 7.8 k/uL (1.3-7.7); Neutrophils % (A) 70 %; Platelet Count 348 k/uL (150-450); RBC 4.83 m/uL (3.80-5.40); WBC 11.2 k/uL (3.8-10.6)
[2020-08-11 14:19] LABS: ALT 17 U/L (4-34); AST 23 U/L (14-36); African American GFR (CKD) >90 (>60 ml/min/1.73 sqM); Albumin 4.1 g/dL (3.5-5.0); Alkaline Phosphatase 87 U/L (38-126); Anion Gap 11 mmol/L; Blood Urea Nitrogen 14 mg/dL (7-17); C Reactive Protein 6.4 mg/dL (<1.0); Calcium 9.8 mg/dL (8.4-10.2); Carbon Dioxide 26 mmol/L (22-30); Chloride 101 mmol/L (98-107); Glucose 120 mg/dL (74-99); LDH 505 U/L (313-618); Magnesium 2.1 mg/dL (1.6-2.3); Non-African American GFR(CKD) 88 (>60 ml/min/1.73 sqM); Potassium 4.3 mmol/L (3.5-5.1); Sodium 138 mmol/L (137-145); Total Bilirubin 0.6 mg/dL (0.2-1.3); Total Protein 7.3 g/dL (6.3-8.2)
[2020-08-11 14:27] VITALS: RESP 16
[2020-08-11 16:04] VITALS: BP 132/77; PULSE 72; TEMP 98
== END 2020-08-11 16:03 | disposition home or self-care (01) ==
LOC: EC 11:18
DX: J18.9 Pneumonia, unspecified organism (principal); E11.9 Type 2 diabetes mellitus without complications; I10 Essential (primary) hypertension; M19.90 Unspecified osteoarthritis, unspecified site; Z88.0 Allergy status to penicillin; F32.9 Major depressive disorder, single episode, unspecified; G47.33 Obstructive sleep apnea (adult) (pediatric); Z20.822 Contact with and (suspected) exposure to COVID-19
CPT/HCPCS: 36415; 93005; 80053; 83605; 83615; 83735; 85025; 86140; 87635; 71046; 99285; 96374; 96361; J2405

== ENCOUNTER 2021-10-19 17:33 | Emergency (ER) | payer MEDICARE ==
[2021-10-19 17:39] VITALS: TEMP 98.5
[2021-10-19] MEDS ORDERED: DEXAMETHASONE SOD PHOSPHATE 10 MG/ML 1 ML VIAL IVP STA (17:48)
[2021-10-19] MEDS ORDERED: RACEPINEPHRINE 2.25% NEB 0.5 ML NEBU INHALATION STA (17:50)
[2021-10-19] MEDS ORDERED: FAMOTIDINE 20 MG/2 ML VIAL IV STA (17:50)
[2021-10-19] MEDS ORDERED: diphenhydrAMINE 50 MG/ML 1 ML VIAL IVP STA (17:50)
--- NOTE | 2021-10-19 17:53 | ED ---
General Adult HPI - General Chief complaint: Shortness of Breath Stated complaint: KINGA Time Seen by Provider: 10/19/21 17:41 Source: patient, family, RN notes reviewed Mode of arrival: ambulatory Limitations: no limitations - History of Present Illness Initial comments: Patient is a pleasant 70-year-old female presenting to the emergency Department with concerns with swelling in her throat. Onset of symptoms was around noon but minimal. Started as a sore throat. Symptoms started worsening around an hour ago and patient feels short of breath secondary to swelling in her throat. Symptoms are starting to become severe for her. No cough. No fever. No history of similar symptoms previously. No new exposures. - Related Data Home Medications Medication Instructions Recorded Confirmed Losartan Potassium 100 mg PO HS 06/17/19 10/19/21 Previous Rx's Medication Instructions Recorded amLODIPine [Norvasc] 5 mg PO DAILY #7 tab 10/19/21 predniSONE [Deltasone] 20 mg PO BID #8 tab 10/19/21 Allergies Allergy/AdvReac Type Severity Reaction Status Date / Time codeine Allergy Unknown Verified 10/19/21 18:52 meperidine HCl [From Demerol] Allergy Unknown Verified 10/19/21 18:52 morphine Allergy Unknown Verified 10/19/21 18:52 Penicillins Allergy Rash/Hives Verified 10/19/21 18:52 Review of Systems ROS Statement: Those systems with pertinent positive or pertinent negative responses have been documented in the HPI. ROS Other: All systems not noted in ROS Statement are negative. Constitutional: Denies: fever, chills Eyes: Denies: eye pain ENT: Reports: as per HPI, throat pain Respiratory: Reports: as per HPI Cardiovascular: Denies: chest pain Endocrine: Denies: fatigue Gastrointestinal: Denies: abdominal pain Genitourinary: Denies: dysuria Musculoskeletal: Denies: back pain Skin: Denies: rash Neurological: Denies: weakness Past Medical History Past Medical History: Cancer, Diabetes Mellitus, GI Bleed, Hypertension, Liver Disease, Osteoarthritis (OA), Sleep Apnea/CPAP/BIPAP Additional Past Medical History / Comment(s): states current blood in stool, states has not taken diabetic meds in 5 yrs, states some memory loss, 2012 right breast cancer had sx and chemo (in remission),diabetic retinopathy,upper gi ble ed/anemia,(pt could not verify),migraines,meneires disease, eileen-no longer uses cpap, 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 History of Any Multi-Drug Resistant Organisms: None Reported Past Surgical History: Bariatric Surgery, Breast Surgery, Cholecystectomy Additional Past Surgical History / Comment(s): rt breast core bx,right mastectomy, tummy tuck, liposuction,hiatal hernia repair,gastric bypass 1998,p ort removed Past Anesthesia/Blood Transfusion Reactions: Postoperative Nausea & Vomiting (PONV) Past Psychological History: Depression Smoking Status: Never smoker Past Alcohol Use History: Rare Past Drug Use History: None Reported - Past Family History Father History Unknown: Yes Family Medical History: No Reported History Mother History Unknown: Yes Family Medical History: No Reported History General Exam Limitations: no limitations General appearance: alert, other (Patient speaks in 2-3 word sentences. Patient does have mild stridor) Head exam: Present: normocephalic Eye exam: Present: normal appearance ENT exam: Present: other (Moderate edema of the uvula) Neck exam: Present: normal inspection. Absent: tenderness, meningismus, lymphadenopathy Respiratory exam: Present: wheezes (Mild) Cardiovascular Exam: Present: regular rate, normal rhythm GI/Abdominal exam: Present: soft. Absent: tenderness Extremities exam: Present: normal inspection. Absent: pedal edema, calf tenderness Neurological exam: Present: alert Psychiatric exam: Present: normal affect, normal mood Skin exam: Present: normal color Course Vital Signs 10/19/21 10/19/21 10/19/21 17:37 17:46 18:36 Temperature 98.5 F Pulse Rate 74 89 Respiratory 18 28 H Rate Blood Pressure 209/108 O2 Sat by Pulse 98 Oximetry 10/19/21 10/19/21 18:46 18:55 Temperature Pulse Rate 90 72 Respiratory 20 Rate Blood Pressure 184/95 O2 Sat by Pulse 94 L Oximetry Medical Decision Making - Medical Decision Making Patient reevaluated and feeling much better. Patient speaking in full sentences. No respiratory distress. No stridor. No wheezing. Uvula with minimal edema. Patient family updated. Advised to hold losartan. - Lab Data Result diagrams: 10/19/21 17:53 10/19/21 17:53 Lab Results 10/19/21 10/19/21 10/19/21 Range/Units 17:53 17:53 17:53 WBC 9.4 (3.8-10.6) k/uL RBC 4.66 (3.80-5.40) m/uL Hgb 14.3 (11.4-16.0) gm/dL Hct 44.2 (34.0-46.0) % MCV 95.0 (80.0-100.0) fL MCH 30.7 (25.0-35.0) pg MCHC 32.4 (31.0-37.0) g/dL RDW 13.4 (11.5-15.5) % Plt Count 244 (150-450) k/uL MPV 7.6 Neutrophils % 73 % Lymphocytes % 20 % Monocytes % 4 % Eosinophils % 1 % Basophils % 0 % Neutrophils # 6.9 (1.3-7.7) k/uL Lymphocytes # 1.9 (1.0-4.8) k/uL Monocytes # 0.4 (0-1.0) k/uL Eosinophils # 0.1 (0-0.7) k/uL Basophils # 0.0 (0-0.2) k/uL Sodium 139 (137-145) mmol/L Potassium 3.9 (3.5-5.1) mmol/L Chloride 104 (98-107) mmol/L Carbon Dioxide 30 (22-30) mmol/L Anion Gap 5 mmol/L BUN 20 H (7-17) mg/dL Creatinine 0.83 (0.52-1.04) mg/dL Est GFR (CKD-EPI)AfAm 83 (>60 ml/min/1.73 sqM) Est GFR (CKD-EPI)NonAf 72 (>60 ml/min/1.73 sqM) Glucose 107 H (74-99) mg/dL Calcium 9.0 (8.4-10.2) mg/dL Total Bilirubin 0.3 (0.2-1.3) mg/dL AST 22 (14-36) U/L ALT 17 (4-34) U/L Alkaline Phosphatase 81 (38-126) U/L Total Protein 7.2 (6.3-8.2) g/dL Albumin 4.4 (3.5-5.0) g/dL Coronavirus (PCR) (Not Detectd) Influenza Type A RNA Not Detected (Not Detectd) Influenza Type B (PCR) Not Detected (Not Detectd) 10/19/21 Range/Units 17:53 WBC (3.8-10.6) k/uL RBC (3.80-5.40) m/uL Hgb (11.4-16.0) gm/dL Hct (34.0-46.0) % MCV (80.0-100.0) fL MCH (25.0-35.0) pg MCHC (31.0-37.0) g/dL RDW (11.5-15.5) % Plt Count (150-450) k/uL MPV Neutrophils % % Lymphocytes % % Monocytes % % Eosinophils % % Basophils % % Neutrophils # (1.3-7.7) k/uL Lymphocytes # (1.0-4.8) k/uL Monocytes # (0-1.0) k/uL Eosinophils # (0-0.7) k/uL Basophils # (0-0.2) k/uL Sodium (137-145) mmol/L Potassium (3.5-5.1) mmol/L Chloride (98-107) mmol/L Carbon Dioxide (22-30) mmol/L Anion Gap mmol/L BUN (7-17) mg/dL Creatinine (0.52-1.04) mg/dL Est GFR (CKD-EPI)AfAm (>60 ml/min/1.73 sqM) Est GFR (CKD-EPI)NonAf (>60 ml/min/1.73 sqM) Glucose (74-99) mg/dL Calcium (8.4-10.2) mg/dL Total Bilirubin (0.2-1.3) mg/dL AST (14-36) U/L ALT (4-34) U/L Alkaline Phosphatase (38-126) U/L Total Protein (6.3-8.2) g/dL Albumin (3.5-5.0) g/dL Coronavirus (PCR) Not Detected (Not Detectd) Influenza Type A RNA (Not Detectd) Influenza Type B (PCR) (Not Detectd) - Radiology Data Radiology results: image reviewed (Chest x-ray and soft tissue neck x-ray revealed no acute process) Disposition Clinical Impression: Angioedema Disposition: HOME SELF-CARE Condition: Stable Instructions (If sedation given, give patient instructions): Angioedema (ED) Additional Instructions: Discontinue losartan. Please follow-up to in the next day or 2 for recheck. Prescription for steroids have been sent to pharmacy. Please start in the morning. Take yelt-stc-coouutx antihistamine such as Benadryl or Claritin for the next 5 days. Return for difficulty breathing, swelling of the throat, swelling of any other area, worsening symptoms or other concerns. Prescriptions: predniSONE [Deltasone] 20 mg PO BID #8 tab amLODIPine [Norvasc] 5 mg PO DAILY #7 tab Is patient prescribed a controlled substance at d/c from ED?: No Referrals: Edinson Rebolledo DO [Primary Care Provider] - 1-2 days Time of Disposition: 19:55
[2021-10-19 18:02] LABS: Basophils % (A) 0 %; Eosinophils # (A) 0.1 k/uL (0-0.7); Eosinophils % (A) 1 %; HCT 44.2 % (34.0-46.0); HGB 14.3 gm/dL (11.4-16.0); Lymphocytes # (A) 1.9 k/uL (1.0-4.8); Lymphocytes % (A) 20 %; MCH 30.7 pg (25.0-35.0); MCHC 32.4 g/dL (31.0-37.0); Mean Platelet Volume 7.6; Monocytes # (A) 0.4 k/uL (0-1.0); Monocytes % (A) 4 %; Neutrophils # (A) 6.9 k/uL (1.3-7.7); Neutrophils % (A) 73 %; Platelet Count 244 k/uL (150-450); RBC 4.66 m/uL (3.80-5.40); RDW 13.4 % (11.5-15.5); WBC 9.4 k/uL (3.8-10.6)
[2021-10-19 18:12] LABS: Albumin 4.4 g/dL (3.5-5.0); Potassium 3.9 mmol/L (3.5-5.1); Total Bilirubin 0.3 mg/dL (0.2-1.3); Total Protein 7.2 g/dL (6.3-8.2)
[2021-10-19] MEDS ORDERED: ONDANSETRON 4 MG/2 ML VIAL IVP STA (18:21)
--- NOTE | 2021-10-19 18:42 | XR ---
EXAMINATION TYPE: XR soft tissue neck DATE OF EXAM: 10/19/2021 COMPARISON: NONE HISTORY: Difficulty breathing TECHNIQUE: 2 views FINDINGS: Epiglottis is normal. Prevertebral soft tissues appear normal. Tonsils and adenoids appear normal. Subglottic trachea appears normal.. IMPRESSION: Negative cervical soft tissue exam.
--- NOTE | 2021-10-19 18:43 | XR ---
EXAMINATION TYPE: XR chest 2V DATE OF EXAM: 10/19/2021 COMPARISON: 08/11/2020 HISTORY: Difficulty breathing TECHNIQUE: 2 views FINDINGS: There is no heart failure not confluent pneumonic infiltrate. Costophrenic angles are clear . Thoracic aorta is atheromatous. IMPRESSION: No active cardiopulmonary disease. No adverse change.
[2021-10-19] MEDS ORDERED: amLODIPine 5 MG TAB PO STA (19:54)
[2021-10-19 20:42] VITALS: BP 184/94; PULSE 75; RESP 18
== END 2021-10-19 20:42 | disposition home or self-care (01) ==
LOC: EC 17:33
DX: T78.3XXA Angioneurotic edema, initial encounter (principal); I10 Essential (primary) hypertension; E11.9 Type 2 diabetes mellitus without complications; Z79.899 Other long term (current) drug therapy; Z88.5 Allergy status to narcotic agent; Z88.8 Allergy status to other drugs, medicaments and biological substances; Z88.0 Allergy status to penicillin; Z20.822 Contact with and (suspected) exposure to COVID-19
CPT/HCPCS: 36415; 94640; 80053; 85025; 87502; 87635; 70360; 71046; 99285; 96374; 96375; J1200; J1100; J2405

== ENCOUNTER 2022-01-23 08:13 | Inpatient (IN) | payer MEDICARE ==
[2022-01-23] MEDS ORDERED: SODIUM CHLORIDE 0.9% 500 ML 500 ML IV STA (08:53)
[2022-01-23] MEDS ORDERED: SODIUM CHLORIDE 0.9% 1,000 ML IV STA ×2 (08:53→09:08)
--- NOTE | 2022-01-23 08:53 | ED ---
SOB HPI - General Chief Complaint: Shortness of Breath Stated Complaint: SOB Time Seen by Provider: 01/23/22 08:16 Source: patient, family, RN notes reviewed Mode of arrival: wheelchair Limitations: no limitations - History of Present Illness Initial Comments: 72-year-old female presents with complaints of shortness of breath is generally not feeling well for past 2 weeks she does he started with a cough with green phlegm that progressed to white phlegm she did get better for a short period time but then she had recurrence of the cough about 3 days ago she has sweats at night no overt fevers chills should decrease appetite felt lightheaded. She d enies any earache sore throat or rhinorrhea. She does have some exertional dyspnea. No chest pain reported. She does state that she was exposed to a grandchild ahead: Approximately 2 weeks ago the child now is fine. MD Complaint: shortness of breath, cough - Related Data Home Medications Medication Instructions Recorded Confirmed Fluticasone/Umeclidin/Vilanter 1 puff INHALATION RT-HS 01/23/22 01/23/22 [Trelegy Ellipta 200-62.5-25] amLODIPine [Norvasc] 5 mg PO HS 01/23/22 01/23/22 Allergies Allergy/AdvReac Type Severity Reaction Status Date / Time codeine Allergy Unknown Verified 01/23/22 10:57 losartan Allergy Dyspnea Verified 01/23/22 10:59 meperidine HCl [From Demerol] Allergy Unknown Verified 01/23/22 10:57 morphine Allergy Unknown Verified 01/23/22 10:57 Penicillins Allergy Rash/Hives/ Verified 01/23/22 10:57 Hallucinati ons Review of Systems ROS Statement: Those systems with pertinent positive or pertinent negative responses have been documented in the HPI. ROS Other: All systems not noted in ROS Statement are negative. 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 History of Any Multi-Drug Resistant Organisms: None Reported Past Surgical History: Bariatric Surgery, Breast Surgery, Cholecystectomy Additional Past Surgical History / Comment(s): rt breast core bx,right mastectomy, tummy tuck, liposuction,hiatal hernia repair,gastric bypass 1998,port removed Past Anesthesia/Blood Transfusion Reactions: Postoperative Nausea & Vomiting (PONV) Past Psychological History: Depression Smoking Status: Never smoker Past Alcohol Use History: Rare Past Drug Use History: None Reported - Past Family History Father History Unknown: Yes Family Medical History: No Reported History Mother History Unknown: Yes Family Medical History: No Reported History General Exam - General Exam Comments Initial Comments: This is a well-developed well-nourished awake alert oriented 4 female she is coughing during the exam Limitations: no limitations General appearance: alert, in no apparent distress Head exam: Present: atraumatic, normocephalic, normal inspection Eye exam: Present: normal appearance, PERRL, EOMI. Absent: scleral icterus, conjunctival injection, periorbital swelling ENT exam: Present: mucous membranes dry Neck exam: Present: normal inspection, full ROM, other (No stridor JVD or bruits). Absent: tenderness, meningismus, lymphadenopathy Respiratory exam: Present: decreased breath sounds. Absent: respiratory distress, wheezes, rales, rhonchi, stridor Cardiovascular Exam: Present: tachycardia, irregular rhythm. Absent: systolic murmur, diastolic murmur, rubs, gallop, clicks GI/Abdominal exam: Present: soft, normal bowel sounds. Absent: distended, tenderness, guarding, rebound, rigid Extremities exam: Present: normal inspection, full ROM, normal capillary refill. Absent: tenderness, pedal edema, joint swelling, calf tenderness Back exam: Present: normal inspection Neurological exam: Present: alert, oriented X3, CN II-XII intact Psychiatric exam: Present: normal affect, normal mood Skin exam: Present: warm, dry, intact, normal color. Absent: rash Course Vital Signs 01/23/22 01/23/22 01/23/22 08:22 09:34 09:58 Temperature 98.4 F Pulse Rate 74 154 H 137 H Pulse Rate [ Pulse Oximetery ] Respiratory 16 12 15 Rate Blood Pressure 90/64 83/64 83/64 O2 Sat by Pulse 95 92 L 92 L Oximetry 01/23/22 01/23/22 01/23/22 10:00 10:10 10:20 Temperature Pulse Rate 130 H 138 H 129 H Pulse Rate [ Pulse Oximetery ] Respiratory 27 H 17 27 H Rate Blood Pressure 83/64 68/47 68/47 O2 Sat by Pulse 92 L 94 L 91 L Oximetry 01/23/22 01/23/22 01/23/22 10:30 10:40 10:50 Temperature Pulse Rate 130 H 152 H 146 H Pulse Rate [ Pulse Oximetery ] Respiratory 16 17 24 Rate Blood Pressure 68/47 79/63 79/63 O2 Sat by Pulse 90 L 94 L 94 L Oximetry 01/23/22 01/23/22 01/23/22 11:00 11:10 11:30 Temperature Pulse Rate 126 H 151 H 134 H Pulse Rate [ Pulse Oximetery ] Respiratory 23 29 H 19 Rate Blood Pressure 79/63 100/69 100/69 O2 Sat by Pulse 95 95 93 L Oximetry 01/23/22 01/23/22 11:40 11:46 Temperature Pulse Rate 128 H Pulse Rate [ 160 H Pulse Oximetery ] Respiratory 22 Rate Blood Pressure 115/105 O2 Sat by Pulse 93 L Oximetry - Reevaluation(s) Reevaluation #1: 01/23/22 12:34 Patient did finally seem to respond to fluids and IV Cardizem. He was improvement of blood pressure as well as improvement of heart rate. Medical Decision Making - Medical Decision Making I did a long discussion with the patient regarding findings patient be admitted continue with IV antibiotics IV fluids IV Cardizem I did discuss the case with Dr. Flores. Cardiology be consulted. - Lab Data Result diagrams: 01/23/22 09:03 01/23/22 09:03 Lab Results 01/23/22 01/23/22 01/23/22 Range/Units 09:03 09:03 09:03 WBC 12.7 H (3.8-10.6) k/uL RBC 4.90 (3.80-5.40) m/uL Hgb 14.9 (11.4-16.0) gm/dL Hct 44.7 (34.0-46.0) % MCV 91.3 (80.0-100.0) fL MCH 30.4 (25.0-35.0) pg MCHC 33.3 (31.0-37.0) g/dL RDW 13.5 (11.5-15.5) % Plt Count 353 (150-450) k/uL MPV 8.5 Neutrophils % 71 % Lymphocytes % 21 % Monocytes % 4 % Eosinophils % 1 % Basophils % 0 % Neutrophils # 9.1 H (1.3-7.7) k/uL Lymphocytes # 2.7 (1.0-4.8) k/uL Monocytes # 0.5 (0-1.0) k/uL Eosinophils # 0.1 (0-0.7) k/uL Basophils # 0.0 (0-0.2) k/uL PT 11.0 (9.0-12.0) sec INR 1.0 (<1.2) APTT 25.4 (22.0-30.0) sec Sodium 135 L (137-145) mmol/L Potassium 4.6 (3.5-5.1) mmol/L Chloride 102 (98-107) mmol/L Carbon Dioxide 22 (22-30) mmol/L Anion Gap 11 mmol/L BUN 13 (7-17) mg/dL Creatinine 0.73 (0.52-1.04) mg/dL Est GFR (CKD-EPI)AfAm >90 (>60 ml/min/1.73 sqM) Est GFR (CKD-EPI)NonAf 83 (>60 ml/min/1.73 sqM) Glucose 140 H (74-99) mg/dL Plasma Lactic Acid Guero (0.7-2.0) mmol/L Calcium 9.2 (8.4-10.2) mg/dL Magnesium 1.9 (1.6-2.3) mg/dL Total Bilirubin 1.1 (0.2-1.3) mg/dL AST 27 (14-36) U/L ALT 15 (4-34) U/L Alkaline Phosphatase 67 (38-126) U/L Troponin I (0.000-0.034) ng/mL NT-Pro-B Natriuret Pep pg/mL Total Protein 7.1 (6.3-8.2) g/dL Albumin 4.1 (3.5-5.0) g/dL Coronavirus (PCR) (Not Detectd) 01/23/22 01/23/22 01/23/22 Range/Units 09:03 09:03 09:03 WBC (3.8-10.6) k/uL RBC (3.80-5.40) m/uL Hgb (11.4-16.0) gm/dL Hct (34.0-46.0) % MCV (80.0-100.0) fL MCH (25.0-35.0) pg MCHC (31.0-37.0) g/dL RDW (11.5-15.5) % Plt Count (150-450) k/uL MPV Neutrophils % % Lymphocytes % % Monocytes % % Eosinophils % % Basophils % % Neutrophils # (1.3-7.7) k/uL Lymphocytes # (1.0-4.8) k/uL Monocytes # (0-1.0) k/uL Eosinophils # (0-0.7) k/uL Basophils # (0-0.2) k/uL PT (9.0-12.0) sec INR (<1.2) APTT (22.0-30.0) sec Sodium (137-145) mmol/L Potassium (3.5-5.1) mmol/L Chloride (98-107) mmol/L Carbon Dioxide (22-30) mmol/L Anion Gap mmol/L BUN (7-17) mg/dL Creatinine (0.52-1.04) mg/dL Est GFR (CKD-EPI)AfAm (>60 ml/min/1.73 sqM) Est GFR (CKD-EPI)NonAf (>60 ml/min/1.73 sqM) Glucose (74-99) mg/dL Plasma Lactic Acid Guero 1.9 (0.7-2.0) mmol/L Calcium (8.4-10.2) mg/dL Magnesium (1.6-2.3) mg/dL Total Bilirubin (0.2-1.3) mg/dL AST (14-36) U/L ALT (4-34) U/L Alkaline Phosphatase (38-126) U/L Troponin I 0.015 (0.000-0.034) ng/mL NT-Pro-B Natriuret Pep 3730 pg/mL Total Protein (6.3-8.2) g/dL Albumin (3.5-5.0) g/dL Coronavirus (PCR) (Not Detectd) 01/23/22 Range/Units 09:03 WBC (3.8-10.6) k/uL RBC (3.80-5.40) m/uL Hgb (11.4-16.0) gm/dL Hct (34.0-46.0) % MCV (80.0-100.0) fL MCH (25.0-35.0) pg MCHC (31.0-37.0) g/dL RDW (11.5-15.5) % Plt Count (150-450) k/uL MPV Neutrophils % % Lymphocytes % % Monocytes % % Eosinophils % % Basophils % % Neutrophils # (1.3-7.7) k/uL Lymphocytes # (1.0-4.8) k/uL Monocytes # (0-1.0) k/uL Eosinophils # (0-0.7) k/uL Basophils # (0-0.2) k/uL PT (9.0-12.0) sec INR (<1.2) APTT (22.0-30.0) sec Sodium (137-145) mmol/L Potassium (3.5-5.1) mmol/L Chloride (98-107) mmol/L Carbon Dioxide (22-30) mmol/L Anion Gap mmol/L BUN (7-17) mg/dL Creatinine (0.52-1.04) mg/dL Est GFR (CKD-EPI)AfAm (>60 ml/min/1.73 sqM) Est GFR (CKD-EPI)NonAf (>60 ml/min/1.73 sqM) Glucose (74-99) mg/dL Plasma Lactic Acid Guero (0.7-2.0) mmol/L Calcium (8.4-10.2) mg/dL Magnesium (1.6-2.3) mg/dL Total Bilirubin (0.2-1.3) mg/dL AST (14-36) U/L ALT (4-34) U/L Alkaline Phosphatase (38-126) U/L Troponin I (0.000-0.034) ng/mL NT-Pro-B Natriuret Pep pg/mL Total Protein (6.3-8.2) g/dL Albumin (3.5-5.0) g/dL Coronavirus (PCR) Not Detected (Not Detectd) - Radiology Data Radiology results: report reviewed (Image reviewed as well as report evidence of posterior infiltrate.), image reviewed Critical Care Time Critical Care Time: Yes Total Critical Care Time: 47 Critical Care Time: Critical care time including initial presentation with history physical labs x- rays discussion with family members. Multiple reevaluation the patient review of old charting admission orders documentation above discussion with the admitting physician. Disposition Clinical Impression: Rapid atrial fibrillation, Pneumonia, Hypotensive episode, Dehydration Disposition: ADMITTED IP TO THIS [facility] Condition: Fair Referrals: Edinson Rebolledo DO [Primary Care Provider] - 1-2 days Decision Date: 01/23/22 Decision Time: 12:00
[2022-01-23] MEDS ORDERED: DILTIAZEM DRIP BOLUS FROM BAG 1 MG SOLN IV ONE ×2 (09:09→11:19)
[2022-01-23] MEDS: DILTIAZEM 125 MG in SODIUM CHLORIDE 0.9% 100 ML IV SCH ×2 (09:34→11:21)
[2022-01-23 09:41] LABS: Partial Thromboplastin Time 25.4 sec (22.0-30.0)
[2022-01-23 09:44] LABS: ALT 15 U/L (4-34); AST 27 U/L (14-36); African American GFR (CKD) >90 (>60 ml/min/1.73 sqM); Albumin 4.1 g/dL (3.5-5.0); Alkaline Phosphatase 67 U/L (38-126); Anion Gap 11 mmol/L; Blood Urea Nitrogen 13 mg/dL (7-17); Calcium 9.2 mg/dL (8.4-10.2); Carbon Dioxide 22 mmol/L (22-30); Chloride 102 mmol/L (98-107); Glucose 140 mg/dL (74-99); Magnesium 1.9 mg/dL (1.6-2.3); Non-African American GFR(CKD) 83 (>60 ml/min/1.73 sqM); Sodium 135 mmol/L (137-145); Total Bilirubin 1.1 mg/dL (0.2-1.3); Total Protein 7.1 g/dL (6.3-8.2)
[2022-01-23 09:45] LABS: Potassium 4.6 mmol/L (3.5-5.1)
[2022-01-23 09:55] LABS: Basophils % (A) 0 %; Eosinophils # (A) 0.1 k/uL (0-0.7); Eosinophils % (A) 1 %; HCT 44.7 % (34.0-46.0); HGB 14.9 gm/dL (11.4-16.0); Lymphocytes # (A) 2.7 k/uL (1.0-4.8); Lymphocytes % (A) 21 %; MCH 30.4 pg (25.0-35.0); MCHC 33.3 g/dL (31.0-37.0); MCV 91.3 fL (80.0-100.0); Mean Platelet Volume 8.5; Monocytes # (A) 0.5 k/uL (0-1.0); Monocytes % (A) 4 %; Neutrophils # (A) 9.1 k/uL (1.3-7.7); Neutrophils % (A) 71 %; Platelet Count 353 k/uL (150-450); RDW 13.5 % (11.5-15.5); WBC 12.7 k/uL (3.8-10.6)
--- NOTE | 2022-01-23 10:16 | XR ---
EXAMINATION TYPE: XR chest 2V DATE OF EXAM: 01/23/2022 COMPARISON: 10/19/2021 INDICATION: Difficulty breathing, cough TECHNIQUE: Frontal and lateral views of the chest are obtained. FINDINGS: The heart size is normal. The pulmonary vasculature is normal. Subtle posterior infiltrate may be present. There is hyperinflation flattening the diaphragms which can be compatible COPD. IMPRESSION: 1. Clinical correlation recommended for subtle posterior infiltrate. Follow up exams can be performed as clinically indicated. 2. COPD
[2022-01-23] MEDS ORDERED: cefTRIAXone IN SWFI 1,000 MG/10 ML SYRINGE IVP STA (12:32)
[2022-01-23] MEDS ORDERED: PNEUMONIA PROTOCOL UTILIZED 1 EACH MISC PO PRN (12:38)
[2022-01-23] MEDS ORDERED: ACETAMINOPHEN TAB 325 MG TAB PO PRN (12:38)
[2022-01-23] MEDS ORDERED: AZITHROMYCIN 500 MG in SODIUM CHLORIDE 0.9% 250 ML IVPB STA (12:38)
[2022-01-23] MEDS ORDERED: HEPARIN SODIUM 1,000 UN/ML (10ML VL) IV PRN (12:53)
[2022-01-23] MEDS ORDERED: HEPARIN SODIUM 1,000 UN/ML (10ML VL) IV ONE (12:53)
[2022-01-23] MEDS ORDERED: HEPARIN SOD,PORK IN 0.45% NACL 25,000 UNIT in 0.45% NACL 1 250ML.BAG IV SCH (13:00)
[2022-01-23] MEDS: SODIUM CHLORIDE 0.9% 1,000 ML IV SCH ×2 (13:09→20:51)
--- NOTE | 2022-01-23 13:57 | P.HPIM ---
History of Present Illness H&P Date: 01/23/22 Patient is a 71-year-old female with PMH of COPD, sleep apnea, right-sided breast cancer, and hypertension that presents the ED for cough and syncopal episode. Patient reports a cough that is been ongoing for the past 2 weeks. She reports her cough to be wet as she is unable to bring up sputum. She also reports shortness of breath has been ongoing for the past 2 weeks that is worsened with exertion. This morning, patient had a syncopal episode while making a jelly sandwich. She reports a coughing fit prior to her syncopal episode. There is no one to witness her syncopal episode. She reports night sweats and lack of appetite over the last 3 days. She denies any headache, lower extremity edema, nausea or vomiting, fever or chills, chest pain, palpitations, changes in urination or bowel habits. No changes in weight. She denies any numbness/weakness/tingling of the extremities. In the ED, she was noted to be in atrial fibrillation with RVR. She was tachypneic with a respiratory rate of 29 and O2 saturation of 93% on room air. Her vital signs were otherwise stable. CBC showed leukocytosis of 12.7. INR was 1. CMP shows sodium 135, glucose 140. Lactic acid was 1.9. Troponin was 0.015 with EKG showing atrial fibrillation with RVR. BNP was 3730. COVID-19 negative. Chest x-ray showed subtle posterior infiltrate. Patient is admitted for further management of atrial for ablation and sepsis related to pneumonia. Review of systems has been performed and is negative except above. General: non toxic, no distress, appears at stated age Derm: warm, dry Head: atraumatic, normocephalic, symmetric Eyes: EOMI, no lid lag, anicteric sclera Mouth: no lip lesion, mucus membranes moist Cardiovascular: Irregularly regular, no murmur, positive posterior tibial pulse bilateral, Lungs: Decreased breath sounds bilateral, no rhonchi, no rales , no accessory muscle use Abdominal: soft, nontender to palpation, no guarding, no appreciable organomegaly Ext: no gross muscle atrophy, no edema, no contractures Neuro: no focal neuro deficits Psych: Alert, oriented, appropriate affect #Sepsis #Community-acquired pneumonia #Atrial fibrillation with rapid ventricular rate #Syncopal episode #Obesity Chronic conditions: COPD, sleep apnea, history of breast cancer Patient meets sepsis criteria with leukocytosis, tachycardia and positive source of infection. Chest x-ray shows possible infiltrate. Her COVID-19 test is negative. Patient be started on Rocephin and azithromycin. Tylenol as needed for fever. Start normal saline at 75 mL per hour. Telemetry monitoring. Sputum and blood culture ordered. Influenza PCR ordered. Patient with atrial fibrillation with RVR, heart rate in the 140s. Patient started on diltiazem drip. Maintain potassium greater than 4 and magnesium greater than 2. Continue heparin drip. Echocardiogram ordered. Cardiology consulted for further management. Her syncopal episode is likely related to orthostatic hypotension. Troponins will be trended and ACS will be ruled out. Obtain orthostats. Patient would benefit from structured weight loss program. Continue Symbicort and DuoNeb as needed for shortness of breath and wheezing. Patient does not use CPAP with regard to her CHACHA. She will need to follow-up with oncology in the outpatient setting for her history of breast cancer. DVT prophylaxis: [Heparin] Discussed with: [Patient, ED physician] Anticipated discharge: [2-3 days] Anticipated discharge place: [Home] A total of [45] minutes was spent on the care of this complex patient more than 50% of the time was spent in counseling and care coordination. Patient names her daughter Ora decision maker if she can't make decisions for herself. Patient would like to be full code. 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 History of Any Multi-Drug Resistant Organisms: None Reported Past Surgical History: Bariatric Surgery, Breast Surgery, Cholecystectomy Additional Past Surgical History / Comment(s): rt breast core bx,right mastectomy, tummy tuck, liposuction,hiatal hernia repair,gastric bypass 1998,port removed Past Anesthesia/Blood Transfusion Reactions: Postoperative Nausea & Vomiting (PONV) Past Psychological History: Depression Smoking Status: Never smoker Past Alcohol Use History: Rare Past Drug Use History: None Reported - Past Family History Father History Unknown: Yes Family Medical History: No Reported History Mother History Unknown: Yes Family Medical History: No Reported History Medications and Allergies Home Medications Medication Instructions Recorded Confirmed Type Fluticasone/Umeclidin/Vilanter 1 puff INHALATION RT-HS 01/23/22 01/23/22 History [Trelegy Ellipta 200-62.5-25] amLODIPine [Norvasc] 5 mg PO HS 01/23/22 01/23/22 History Allergies Allergy/AdvReac Type Severity Reaction Status Date / Time codeine Allergy Unknown Verified 01/23/22 10:57 losartan Allergy Dyspnea Verified 01/23/22 10:59 meperidine HCl [From Demerol] Allergy Unknown Verified 01/23/22 10:57 morphine Allergy Unknown Verified 01/23/22 10:57 Penicillins Allergy Rash/Hives/ Verified 01/23/22 10:57 Hallucinati ons Physical Exam Vitals: Vital Signs Temp Pulse Pulse Resp BP Pulse Ox 01/23/22 11:46 160 H 01/23/22 11:40 128 H 22 115/105 93 L 01/23/22 11:30 134 H 19 100/69 93 L 01/23/22 11:10 151 H 29 H 100/69 95 01/23/22 11:00 126 H 23 79/63 95 01/23/22 10:50 146 H 24 79/63 94 L 01/23/22 10:40 152 H 17 79/63 94 L 01/23/22 10:30 130 H 16 68/47 90 L 01/23/22 10:20 129 H 27 H 68/47 91 L 01/23/22 10:10 138 H 17 68/47 94 L 01/23/22 10:00 130 H 27 H 83/64 92 L 01/23/22 09:58 137 H 15 83/64 92 L 01/23/22 09:34 154 H 12 83/64 92 L 01/23/22 08:22 98.4 F 74 16 90/64 95 Intake and Output 01/22/22 01/23/22 01/23/22 22:59 06:59 14:59 Intake Total 9.250 Balance 9.250 Intake: Intake, IV Titration 9.250 Amount Diltiazem 125 mg In 9.250 Sodium Chloride 0.9% 100 ml @ 5 MG/HR 5 mls/hr IV .Q24H [facility] Rx#:[id number] Other: Weight 90.718 kg Results CBC & Chem 7: 01/23/22 09:03 01/23/22 09:03 Labs: Abnormal Lab Results - Last 24 Hours (Table) 01/23/22 01/23/22 Range/Units 09:03 09:03 WBC 12.7 H (3.8-10.6) k/uL Neutrophils # 9.1 H (1.3-7.7) k/uL Sodium 135 L (137-145) mmol/L Glucose 140 H (74-99) mg/dL
[2022-01-23 14:33] LABS: INR 1.1 (<1.2); Partial Thromboplastin Time 24.6 sec (22.0-30.0); Prothrombin Time 11.6 sec (9.0-12.0)
[2022-01-23] MEDS: METOPROLOL TARTRATE 50 MG TAB PO SCH (18:06)
[2022-01-23] MEDS: amLODIPine 5 MG TAB PO SCH (19:47)
[2022-01-23] MEDS: SYMBICORT 80-4.5 MCG INHALER INHALATION SCH (20:15)
[2022-01-23] MEDS: IPRATROPIUM 0.5 MG/2.5 ML NEBU INHALATION SCH (20:15)
[2022-01-24 05:15] LABS: Basophils % (A) 0 %; Eosinophils # (A) 0.2 k/uL (0-0.7); Eosinophils % (A) 2 %; HCT 39.1 % (34.0-46.0); HGB 13.1 gm/dL (11.4-16.0); Lymphocytes # (A) 2.7 k/uL (1.0-4.8); Lymphocytes % (A) 32 %; MCH 30.7 pg (25.0-35.0); MCHC 33.5 g/dL (31.0-37.0); MCV 91.5 fL (80.0-100.0); Mean Platelet Volume 8.3; Monocytes # (A) 0.4 k/uL (0-1.0); Monocytes % (A) 4 %; Neutrophils % (A) 59 %; Platelet Count 281 k/uL (150-450); RBC 4.28 m/uL (3.80-5.40); RDW 13.3 % (11.5-15.5); WBC 8.4 k/uL (3.8-10.6)
[2022-01-24 05:42] LABS: INR 1.1 (<1.2); Prothrombin Time 12.1 sec (9.0-12.0)
[2022-01-24 06:08] LABS: Partial Thromboplastin Time >200.0 sec (22.0-30.0)
[2022-01-24] MEDS: METOPROLOL TARTRATE 50 MG TAB PO SCH (06:58)
[2022-01-24] MEDS: IPRATROPIUM 0.5 MG/2.5 ML NEBU INHALATION SCH ×4 (07:10→19:33)
[2022-01-24] MEDS: SYMBICORT 80-4.5 MCG INHALER INHALATION SCH ×2 (07:11→19:33)
[2022-01-24] MEDS: AZITHROMYCIN 500 MG TAB PO SCH (08:44)
[2022-01-24] MEDS ORDERED: METOPROLOL TARTRATE 25 MG TAB PO STA (09:01)
--- NOTE | 2022-01-24 10:06 | P.CRDCN ---
History of Present Illness History of present illness: HISTORY OF PRESENTING ILLNESS This is a pleasant 71-year-old female past medical history significant for hypertension, right breast cancer status post chemotherapy, type 2 diabetes no longer on medications, CHACHA. 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 We have been asked to see in consultation for Atrial fibrillation with RVR. Patient presents to the emergency department with complaints of productive cough with green phlegm, night sweats, decreased appetite for 2 weeks. Past 2-3 days she had symptoms of worsening generalized fatigue, lightheadedness, she had a brief syncopal episode she states in her kitchen 2 days ago where she felt as if she may pass out, lowered herself to the ground and did lose consciousness, she states it was brief, however unwitnessed. She woke up on the kitchen floor. She had no symptoms of chest pain, palpitations, nausea, vomiting, diaphoresis. She states due to her increased fatigue and cough she presents emergency department for further evaluation. She denies any history of CAD, GA, stroke, arrhythmia. She is a never/nonsmoker. Family history includes her brother had an GA. She was initially started on IV Cardizem. She continues to be in atrial fibrillation, heart rate 72. DIAGNOSTICS * EKG reveals atrial fibrillation with RVR, HR 160, non specific ST-T wave abnormality. * Telemetry tracings indicate atrial fibrillation HR 90s-120s * Chest xray several posterior infiltrate, hyperinflation compatible COPD * Laboratory reviewed, WBC 12.7, hemoglobin 14.9, platelets 353, troponin negative, proBNP 3730, sodium 135, potassium 4.6, BUN 13, serum creatinine 0.7, covid-19 negative * Current home medications include amlodipine 5 mg nightly, Trelegy Ellipta REVIEW OF SYSTEMS At the time of my exam: CONSTITUTIONAL: Denies fever or+chills. +night sweats CARDIOVASCULAR: Denies chest pain, shortness of breath, orthopnea, PND or palpitations. RESPIRATORY: Reports cough. GASTROINTESTINAL: Denies abdominal pain, diarrhea, constipation, nausea or vomiting. MUSCULOSKELETAL: Denies myalgias. NEUROLOGIC: Denies numbness, tingling, headacbe or weakness. ENDOCRINE: + fatigue, Denies weight change, polydipsia or polyurina. GENITOURINARY: Denies burning, hematuria or urgency with micturation. HEMATOLOGIC: Denies history of anemia or bleeding. PHYSICAL EXAMINATION Vitals 99/61, height 89, afebrile, saturations 92% on room air CONSTITUTIONAL: No apparent distress. HEENT: Head is normocephalic. Pupils are equal, round. Sclerae anicteric. Mucous membranes of the mouth are moist. No JVD. CHEST EXAMINATION: Lungs are clear to auscultation. No chest wall tenderness is noted on palpation or with deep breathing. HEART EXAMINATION: Irregular rate and rhythm. S1, S2 heard. No murmurs, gallops or rub. ABDOMEN: Soft, nontender. Positive bowel sounds. EXTREMITIES: 2+ peripheral pulses, no lower extremity edema and no calf tenderness. SKIN: warm, dry NEUROLOGIC EXAMINATION: Patient is awake, alert and oriented x3. ASSESSMENT Paroxysmal atrial fibrillation with rapid ventricular response -[id number] score 4 Symptoms of productive cough, night sweats, decreased appetite, generalized fatigue Possible Pneumonia Reported unwitnessed syncopal episode 2 days prior to admission Hypertension History of right breast cancer status post chemotherapy History of type 2 diabetes no longer on medications Obstructive sleep apnea PLAN Increase metoprolol tartrate Continue cardiac telemetry Stop IV Heparin Start Eliquis 5mg BID, case management consulted for coverage Obtain 2D echocardiogram Further recommendations based on clinical course Nurse practitioner note has been reviewed by physician. Signing provider agrees with the documented findings, assessment, and plan of care. 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 History of Any Multi-Drug Resistant Organisms: None Reported Past Surgical History: Bariatric Surgery, Breast Surgery, Cholecystectomy Additional Past Surgical History / Comment(s): rt breast core bx,right mastectomy, tummy tuck, liposuction,hiatal hernia repair,gastric bypass 1998,port removed Past Anesthesia/Blood Transfusion Reactions: Postoperative Nausea & Vomiting (PONV) Past Psychological History: Depression Additional Psychological History / Comment(s): anxiety prior to procedures Smoking Status: Never smoker Past Alcohol Use History: Rare Additional Past Alcohol Use History / Comment(s): started smoking 1965 and quit 1983 smoked 1/2 ppd Past Drug Use History: None Reported - Past Family History Father History Unknown: Yes Family Medical History: No Reported History Mother History Unknown: Yes Family Medical History: No Reported History Medications and Allergies Home Medications Medication Instructions Recorded Confirmed Type Fluticasone/Umeclidin/Vilanter 1 puff INHALATION RT-HS 01/23/22 01/23/22 History [Trelegy Ellipta 200-62.5-25] amLODIPine [Norvasc] 5 mg PO HS 01/23/22 01/23/22 History Apixaban [Eliquis] 5 mg PO BID #60 tab 01/24/22 Rx Allergies Allergy/AdvReac Type Severity Reaction Status Date / Time codeine Allergy Unknown Verified 01/23/22 10:57 losartan Allergy Dyspnea Verified 01/23/22 10:59 meperidine HCl [From Demerol] Allergy Unknown Verified 01/23/22 10:57 morphine Allergy Unknown Verified 01/23/22 10:57 Penicillins Allergy Rash/Hives/ Verified 01/23/22 10:57 Hallucinati ons Physical Exam Vitals: Vital Signs Temp Pulse Pulse Pulse Resp BP BP 01/24/22 07:11 72 01/24/22 06:55 129 H 20 126/73 01/24/22 03:25 98.2 F 120 H 20 114/82 01/24/22 01:40 16 01/24/22 00:00 98.6 F 90 16 110/71 01/23/22 20:25 60 01/23/22 20:16 57 L 01/23/22 20:00 18 01/23/22 19:41 98 F 61 16 101/66 01/23/22 18:15 116 H 01/23/22 17:52 98.8 F 147 H 18 134/89 01/23/22 16:41 130 H 16 114/96 01/23/22 15:00 129 H 23 76/49 01/23/22 14:30 130 H 15 111/73 01/23/22 14:00 147 H 15 95/78 01/23/22 13:00 125/105 01/23/22 12:30 140 H 20 113/95 01/23/22 12:00 141 H 14 01/23/22 11:46 160 H 01/23/22 11:40 128 H 22 115/105 01/23/22 11:30 134 H 19 100/69 01/23/22 11:10 151 H 29 H 100/69 01/23/22 11:00 126 H 23 79/63 01/23/22 10:50 146 H 24 79/63 01/23/22 10:40 152 H 17 79/63 01/23/22 10:30 130 H 16 68/47 01/23/22 10:20 129 H 27 H 68/47 01/23/22 10:10 138 H 17 68/47 01/23/22 10:00 130 H 27 H 83/64 01/23/22 09:58 137 H 15 83/64 01/23/22 09:34 154 H 12 83/64 01/23/22 08:22 98.4 F 74 16 90/64 Pulse Ox 01/24/22 07:11 96 01/24/22 06:55 95 01/24/22 03:25 95 01/24/22 01:40 01/24/22 00:00 96 01/23/22 20:25 01/23/22 20:16 01/23/22 20:00 01/23/22 19:41 98 01/23/22 18:15 01/23/22 17:52 98 01/23/22 16:41 95 01/23/22 15:00 01/23/22 14:30 01/23/22 14:00 01/23/22 13:00 01/23/22 12:30 94 L 01/23/22 12:00 95 01/23/22 11:46 01/23/22 11:40 93 L 01/23/22 11:30 93 L 01/23/22 11:10 95 01/23/22 11:00 95 01/23/22 10:50 94 L 01/23/22 10:40 94 L 01/23/22 10:30 90 L 01/23/22 10:20 91 L 01/23/22 10:10 94 L 01/23/22 10:00 92 L 01/23/22 09:58 92 L 01/23/22 09:34 92 L 01/23/22 08:22 95 Intake and Output 01/23/22 01/24/22 01/24/22 22:59 06:59 14:59 Intake Total 130.373 111.582 Balance 130.373 111.582 Intake: Intake, IV Titration 130.373 111.582 Amount Diltiazem 125 mg In 65.167 Sodium Chloride 0.9% 100 ml @ 5 MG/HR 5 mls/hr IV .Q24H [facility] Rx#:[id number] Heparin Sod,Pork in 0.45% 65.206 111.582 NaCl 25,000 unit In 0.45 % NaCl 1 250ml.bag @ 11. 03 UNITS/KG/HR 10.006 mls /hr IV .Q24H [facility] Rx#: [id number] Other: Voiding Method Toilet Toilet # Voids 2 Weight 90.718 kg Results 01/24/22 04:36 01/23/22 09:03 Cardiac Enzymes 01/23/22 01/23/22 01/23/22 Range/Units 09:03 09:03 14:12 AST 27 (14-36) U/L Troponin I 0.015 <0.012 (0.000-0.034) ng/mL Coagulation 01/23/22 01/23/22 01/23/22 Range/Units 09:03 14:12 20:45 PT 11.0 11.6 (9.0-12.0) sec APTT 25.4 24.6 28.8 (22.0-30.0) sec 01/24/22 Range/Units 04:36 PT 12.1 H (9.0-12.0) sec APTT >200.0 H* (22.0-30.0) sec CBC 01/23/22 01/24/22 Range/Units 09:03 04:36 WBC 12.7 H 8.4 (3.8-10.6) k/uL RBC 4.90 4.28 (3.80-5.40) m/uL Hgb 14.9 13.1 (11.4-16.0) gm/dL Hct 44.7 39.1 (34.0-46.0) % Plt Count 353 281 (150-450) k/uL Comprehensive Metabolic Panel 01/23/22 Range/Units 09:03 Sodium 135 L (137-145) mmol/L Potassium 4.6 (3.5-5.1) mmol/L Chloride 102 (98-107) mmol/L Carbon Dioxide 22 (22-30) mmol/L BUN 13 (7-17) mg/dL Creatinine 0.73 (0.52-1.04) mg/dL Glucose 140 H (74-99) mg/dL Calcium 9.2 (8.4-10.2) mg/dL AST 27 (14-36) U/L ALT 15 (4-34) U/L Alkaline Phosphatase 67 (38-126) U/L Total Protein 7.1 (6.3-8.2) g/dL Albumin 4.1 (3.5-5.0) g/dL Current Medications Generic Name Dose Route Start Last Admin Trade Name Freq PRN Reason Stop Dose Admin Acetaminophen 650 mg 01/23/22 12:38 Acetaminophen Tab 325 Mg Tab PO Q4HR PRN Fever and/ or Mild Pain Albuterol/Ipratropium 3 ml 01/23/22 13:56 Ipratropium-Albuterol 3 Ml Neb INHALATION RT-QID PRN Shortness Of Breath Or Wheezing Amlodipine Besylate 5 mg 01/23/22 21:00 01/23/22 19:47 Amlodipine 5 Mg Tab PO Not Given HS [facility] Azithromycin 500 mg 01/24/22 09:00 Azithromycin 500 Mg Tab PO 01/25/22 09:01 DAILY [facility] Protocol Budesonide/Formoterol Fumarate 2 puff 01/23/22 20:00 01/24/22 07:11 Symbicort 80-4.5 Mcg Inhaler INHALATION 2 puff RT-BID [facility] Administration Heparin Sodium (Porcine) 0 unit 01/23/22 12:53 01/23/22 21:24 Heparin Sodium 1,000 Un/Ml (10ml Vl) IV 4,000 unit PER PROTOCOL PRN Administration Low PTT Protocol Sodium Chloride 1,000 mls @ 100 mls/hr 01/23/22 12:45 01/23/22 20:51 Saline 0.9% IV 100 mls/hr .Q10H [facility] Administration Ceftriaxone Sodium 2 gm/ 50 mls @ 100 mls/hr 01/24/22 09:00 Sodium Chloride IVPB 01/27/22 09:29 Q24HR [facility] Protocol Heparin Sodium/Sodium Chloride 250 mls @ 10.006 mls/hr 01/23/22 13:00 01/24/22 06:11 25,000 unit/ Sodium Chloride IV 0 units/kg/hr .Q24H [facility] 0 mls/hr Titration Protocol 11.03 UNITS/KG/HR Ipratropium [place] 0.5 mg 01/23/22 20:00 01/24/22 07:10 Ipratropium 0.5 Mg/2.5 Ml Nebu INHALATION 0.5 mg RT-QID [facility] Administration Metoprolol Tartrate 50 mg 01/23/22 19:00 01/24/22 06:58 Metoprolol Tartrate 50 Mg Tab PO 50 mg BID [facility] Administration Miscellaneous Information 1 each 01/23/22 12:38 Pneumonia Protocol Utilized 1 Each Misc PO ONCE PRN Per Protocol Intake and Output 01/23/22 01/24/22 01/24/22 22:59 06:59 14:59 Intake Total 130.373 111.582 Balance 130.373 111.582 Intake: Intake, IV Titration 130.373 111.582 Amount Diltiazem 125 mg In 65.167 Sodium Chloride 0.9% 100 ml @ 5 MG/HR 5 mls/hr IV .Q24H [facility] Rx#:[id number] Heparin Sod,Pork in 0.45% 65.206 111.582 NaCl 25,000 unit In 0.45 % NaCl 1 250ml.bag @ 11. 03 UNITS/KG/HR 10.006 mls /hr IV .Q24H [facility] Rx#: [id number] Other: Voiding Method Toilet Toilet # Voids 2 Weight 90.718 kg 01/24/22 04:36 01/23/22 09:03
--- NOTE | 2022-01-24 10:43 | P.PN ---
Subjective Progress Note Date: 01/24/22 Patient was seen and examined. No acute events overnight. Patient reports significant lightheadedness especially when standing up and ambulating. Denies vertigo. Denies any chest pain or shortness of breath. Continues to have a dry cough. General: non toxic, no distress, appears at stated age Derm: warm, dry Head: atraumatic, normocephalic, symmetric Eyes: EOMI, no lid lag, anicteric sclera Mouth: no lip lesion, mucus membranes moist Cardiovascular: Irregularly regular, no murmur Lungs: Decreased breath sounds bilateral, no rhonchi, no rales , no accessory muscle use Ext: no gross muscle atrophy, no edema, no contractures Neuro: no focal neuro deficits Psych: Alert, oriented, appropriate affect #Sepsis #Community-acquired pneumonia #Atrial fibrillation with rapid ventricular rate #Syncopal episode #Obesity Chronic conditions: COPD, sleep apnea, history of breast cancer Patient meets sepsis criteria with leukocytosis, tachycardia and positive source of infection. Chest x-ray shows possible infiltrate. Her COVID-19 test is negative. Patient be continued on Rocephin and azithromycin. Tylenol as needed for fever. Start normal saline at 75 mL per hour. Telemetry monitoring. Sputum and blood culture pending. Influenza PCR negative. Patient with atrial fibrillation with RVR, heart rate in the 140s. Diltiazem drip discontinued and patient started on Metoprolol. Maintain potassium greater than 4 and magnesium greater than 2. Heparin drip discontinued and patient started on Eliquis. Echocardiogram ordered. Cardiology consulted for further management. Her syncopal episode is likely related to orthostatic hypotension. Troponins trended and ACS ruled out. Obtain orthostats. Patient would benefit from structured weight loss program. Continue Symbicort and DuoNeb as needed for shortness of breath and wheezing. Patient does not use CPAP with regard to her CHACHA. She will need to follow-up with oncology in the outpatient setting for her history of breast cancer. DVT prophylaxis: [Eliquis] Discussed with: [Patient, nurse] Anticipated discharge: [2-3 days] Anticipated discharge place: [Home] A total of [25] minutes was spent on the care of this complex patient more than 50% of the time was spent in counseling and care coordination. Patient names her daughter Ora decision maker if she can't make decisions for herself. Patient would like to be full code. Objective - Vital Signs Vital signs: Vital Signs Temp 97.8 F 01/24/22 08:00 Pulse 89 01/24/22 08:00 Resp 18 01/24/22 08:00 BP 99/61 01/24/22 08:00 Pulse Ox 92 L 01/24/22 08:00 FiO2 Intake & Output 01/23/22 01/24/22 01/24/22 18:59 06:59 18:59 Intake Total 74.417 176.788 0 Balance 74.417 176.788 0 Weight 90.718 kg Intake: Intake, IV Titration 74.417 176.788 0 Amount Diltiazem 125 mg In 74.417 Sodium Chloride 0.9% 100 ml @ 5 MG/HR 5 mls/hr IV .Q24H [facility] Rx#:[id number] Heparin Sod,Pork in 0.45% 176.788 0 NaCl 25,000 unit In 0.45 % NaCl 1 250ml.bag @ 11. 03 UNITS/KG/HR 10.006 mls /hr IV .Q24H [facility] Rx#: [id number] Other: Voiding Method Toilet # Voids 2 - Labs CBC & Chem 7: 01/24/22 04:36 01/23/22 09:03 Labs: Abnormal Lab Results - Last 24 Hours (Table) 01/24/22 Range/Units 04:36 PT 12.1 H (9.0-12.0) sec APTT >200.0 H* (22.0-30.0) sec
[2022-01-24] MEDS: APIXABAN 5 MG TAB PO SCH ×2 (11:04→20:38)
[2022-01-24] MEDS: IPRATROPIUM-ALBUTEROL 3 ML NEB INHALATION PRN (15:18)
[2022-01-24] MEDS: SODIUM CHLORIDE 0.9% 1,000 ML IV SCH ×2 (18:06→20:36)
[2022-01-24] MEDS: METOPROLOL TARTRATE 25 MG TAB PO SCH (20:38)
[2022-01-24] MEDS: amLODIPine 5 MG TAB PO SCH (20:38)
[2022-01-25] MEDS: IPRATROPIUM-ALBUTEROL 3 ML NEB INHALATION PRN ×3 (08:02→16:27)
[2022-01-25] MEDS: SYMBICORT 80-4.5 MCG INHALER INHALATION SCH ×2 (08:02→20:25)
[2022-01-25] MEDS: IPRATROPIUM 0.5 MG/2.5 ML NEBU INHALATION SCH ×4 (08:02→20:25)
[2022-01-25] MEDS: SODIUM CHLORIDE 0.9% 1,000 ML IV SCH ×2 (08:45→13:05)
--- NOTE | 2022-01-25 09:13 | CA ---
Transthoracic Echo Report Name: Eden Pavon Age: 71 Gender: F : 1950 Exam Date: 01/24/2022 11:12 Exam Location: [place] [facility] Ht (in): 65 Wt (lb): 200 Ordering Physician: Michael Melissa MD Attending/Referring Phys: Moth Proofer Kristina Hanna RDCS Procedure CPT: Indications: afib Cardiac Hx: Technical Quality: Fair Contrast 1: Total Dose (mL): Contrast 2: Total Dose (mL): MEASUREMENTS (Male / Female) Normal Values 2D ECHO LV Diastolic Diameter PLAX 4.7 cm 4.2 - 5.9 / 3.9 - 5.3 cm LV Systolic Diameter PLAX 3.5 cm IVS Diastolic Thickness 1.5 cm 0.6 - 1.0 / 0.6 - 0.9 cm LVPW Diastolic Thickness 1.2 cm 0.6 - 1.0 / 0.6 - 0.9 cm LV Relative Wall Thickness 0.6 RV Internal Dim ED PLAX 3.7 cm LA Volume 111.1 cm??? 18 - 58 / 22 - 52 cm??? M-MODE Aortic Root Diameter MM 3.3 cm LA Systolic Diameter MM 4.3 cm LA Ao Ratio MM 1.3 DOPPLER AV Peak Velocity 109.8 cm/s AV Peak Gradient 4.8 mmHg LVOT Peak Velocity 91.7 cm/s LVOT Peak Gradient 3.4 mmHg TR Peak Velocity 234.4 cm/s TR Peak Gradient 22.0 mmHg Right Ventricular Systolic Press 25.1 mmHg FINDINGS Left Ventricle Moderately increased left ventricular wall thickness. No obvious regional wall motion abnormalities. Left ventricular ejection fraction is estimated at 50-55 %. Right Ventricle Mild right ventricular dilatation. Right ventricular systolic pressure within normal limits. Right Atrium Normal right atrial size. Left Atrium Severely increased left atrial volume. Mitral Valve Moderate mitral annular calcification. Mitral valve thickened. Mild to moderate mitral regurgitation. Aortic Valve No aortic valve stenosis or regurgitation. Tricuspid Valve Mild tricuspid regurgitation. Pulmonic Valve Structurally normal pulmonic valve. Pericardium No pericardial effusion. Aorta Normal size aortic root and proximal ascending aorta. CONCLUSIONS Technically difficult study for interpretation Normal left ventricular dimension and systolic function [id number] mitral regurgitation Previewed by: Dr. Enzo Huerta MD (Electronically Signed) Final Date: 25 January 2022 09:12
[2022-01-25] MEDS ORDERED: DEXTROSE 5% IN WATER 100 ML with AMIODARONE 150 MG IV ONE (09:29)
[2022-01-25] MEDS ORDERED: AMIODARONE 360 MG in DEXTROSE 5% IN WATER 200 ML IV ONE ×2 (09:29)
[2022-01-25] MEDS: METOPROLOL TARTRATE 25 MG TAB PO SCH ×2 (09:52→20:49)
--- NOTE | 2022-01-25 10:54 | P.PN ---
Subjective Progress Note Date: 01/25/22 Patient was seen and examined. No acute events overnight. Patient continues to report significant lightheadedness especially when standing up and ambulating. Denies any chest pain or shortness of breath. Continues to have a dry cough. Heart rate in the 160s. General: non toxic, no distress, appears at stated age Derm: warm, dry Head: atraumatic, normocephalic, symmetric Eyes: EOMI, no lid lag, anicteric sclera Mouth: no lip lesion, mucus membranes moist Cardiovascular: Irregularly regular, no murmur Lungs: Decreased breath sounds bilateral, no rhonchi, no rales , no accessory muscle use Ext: no gross muscle atrophy, no edema, no contractures Neuro: no focal neuro deficits Psych: Alert, oriented, appropriate affect #Sepsis #Community-acquired pneumonia #Atrial fibrillation with rapid ventricular rate #Syncopal episode #Obesity Chronic conditions: COPD, sleep apnea, history of breast cancer Patient meets sepsis criteria with leukocytosis, tachycardia and positive source of infection. Chest x-ray shows possible infiltrate. Her COVID-19 test is negative. Patient be continued on Rocephin and azithromycin. Tylenol as needed for fever. Start normal saline at 100 mL per hour. Telemetry monitoring. Blood culture negative so far. Sputum culture pending. Influenza PCR negative. Patient with atrial fibrillation with RVR, heart rate in the 140s. Continued on Metoprolol. Started on Amiodarone drip. Maintain potassium greater than 4 and magnesium greater than 2. Heparin drip discontinued and patient started on Eliquis. Echocardiogram shows EF of 50-55%. Cardiology consulted for further management. Her syncopal episode is likely related to orthostatic hypotension. Orthostats positive. Continue IV hydration as above. ACS ruled out. Patient would benefit from structured weight loss program. Continue Symbicort and DuoNeb as needed for shortness of breath and wheezing. Patient does not use CPAP with regard to her CHACHA. She will need to follow-up with oncology in the outpatient setting for her history of breast cancer. DVT prophylaxis: [Eliquis] Discussed with: [Patient, nurse] Anticipated discharge: [2-3 days] Anticipated discharge place: [Home] A total of [25] minutes was spent on the care of this complex patient more than 50% of the time was spent in counseling and care coordination. Patient names her daughter Ora decision maker if she can't make decisions for herself. Patient would like to be full code. Objective - Vital Signs Vital signs: Vital Signs Temp 98.7 F 01/25/22 07:46 Pulse 86 01/25/22 10:28 Resp 17 01/25/22 10:28 BP 110/61 01/25/22 07:46 Pulse Ox 95 01/25/22 08:02 FiO2 Intake & Output 01/24/22 01/25/22 01/25/22 18:59 06:59 18:59 Intake Total 678 118 Balance 678 118 Intake: Intake, IV Titration 0 Amount Heparin Sod,Pork in 0.45% 0 NaCl 25,000 unit In 0.45 % NaCl 1 250ml.bag @ 11. 03 UNITS/KG/HR 10.006 mls /hr IV .Q24H [facility] Rx#: [id number] Oral [id number] Other: Voiding Method Toilet Toilet # Voids 3 1 - Labs CBC & Chem 7: 01/24/22 04:36 01/23/22 09:03 Labs: Microbiology - Last 24 Hours (Table) 01/23/22 13:18 Blood Culture - Preliminary Blood No Growth after 24 hours 01/23/22 13:18 Blood Culture - Preliminary Blood No Growth after 24 hours 01/23/22 09:03 Blood Culture - Preliminary Blood No Growth after 24 hours 01/23/22 09:03 Blood Culture - Preliminary Blood No Growth after 24 hours
--- NOTE | 2022-01-25 11:52 | P.PN ---
Subjective This is a pleasant 71-year-old female past medical history significant for hypertension, right breast cancer status post chemotherapy, type 2 diabetes no longer on medications, CHACHA. 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 We have been asked to see in consultation for Atrial fibrillation with RVR. Patient presents to the emergency department with complaints of productive cough with green phlegm, night sweats, decreased appetite for 2 weeks. Past 2-3 days she had symptoms of worsening generalized fatigue, lightheadedness, she had a brief syncopal episode she states in her kitchen 2 days ago where she felt as if she may pass out, lowered herself to the ground and did lose consciousness, she states it was brief, however unwitnessed. She woke up on the kitchen floor. She had no symptoms of chest pain, palpitations, nausea, vomiting, diaphoresis. She states due to her increased fatigue and cough she presents emergency department for further evaluation. She denies any history of CAD, HI, stroke, arrhythmia. She is a never/nonsmoker. Family history includes her brother had an HI. She was initially started on IV Cardizem. She continues to be in atrial fibrillation, heart rate 72. 9/30 Patient seen and examined at bedside, continues to have palpitations. She states that she's still feeling fatigued this morning. She denies any chest pain or shortness of breath. She continues to be in atrial fibrillation with uncontrolled rates. Currently on metoprolol titrate 75 mg BID. Echocardiogram revealed EF of 5055 % mild to moderate mitral regurgitation PHYSICAL EXAMINATION Vitals blood pressure 110/61, heart rate 150 on telemetry CONSTITUTIONAL: No apparent distress. HEENT: Neck Supple. No JVD. CHEST EXAMINATION: Lungs are clear to auscultation. No chest wall tenderness is noted on palpation or with deep breathing. HEART EXAMINATION: Irregular rate and rhythm. S1, S2 heard. systolic murmur at atpex. ABDOMEN: Soft, nontender. Positive bowel sounds. EXTREMITIES: 2+ peripheral pulses, no lower extremity edema and no calf tenderness. SKIN: warm, dry NEUROLOGIC EXAMINATION: Patient is awake, alert and oriented x3. ASSESSMENT Paroxysmal atrial fibrillation with rapid ventricular response -[id number] score 4 Symptoms of productive cough, night sweats, decreased appetite, generalized fatigue Possible Pneumonia Reported unwitnessed syncopal episode 2 days prior to admission Hypertension History of right breast cancer status post chemotherapy History of type 2 diabetes no longer on medications Obstructive sleep apnea PLAN Start IV amiodarone bolus and drip Continue metoprolol tartrate Continue cardiac telemetry Continue Eliquis 5mg BID, case management consulted for coverage, cost is $37 copay Further recommendations based on clinical course Nurse practitioner note has been reviewed by physician. Signing provider agrees with the documented findings, assessment, and plan of care. Objective - Vital Signs Vital signs: Vital Signs Temp 98.7 F 01/25/22 07:46 Pulse 80 01/25/22 11:32 Resp 18 01/25/22 11:32 BP 110/61 01/25/22 07:46 Pulse Ox 95 01/25/22 08:02 FiO2 Intake & Output 01/24/22 01/25/22 01/25/22 18:59 06:59 18:59 Intake Total 678 118 Balance 678 118 Intake: Intake, IV Titration 0 Amount Heparin Sod,Pork in 0.45% 0 NaCl 25,000 unit In 0.45 % NaCl 1 250ml.bag @ 11. 03 UNITS/KG/HR 10.006 mls /hr IV .Q24H [facility] Rx#: [id number] Oral [id number] Other: Voiding Method Toilet Toilet # Voids 3 1 - Labs CBC & Chem 7: 01/24/22 04:36 01/23/22 09:03 Labs: Microbiology - Last 24 Hours (Table) 01/23/22 09:03 Blood Culture - Preliminary Blood No Growth after 48 hours 01/23/22 09:03 Blood Culture - Preliminary Blood No Growth after 48 hours 01/23/22 13:18 Blood Culture - Preliminary Blood No Growth after 24 hours 01/23/22 13:18 Blood Culture - Preliminary Blood No Growth after 24 hours
[2022-01-25] MEDS: APIXABAN 5 MG TAB PO SCH ×2 (13:05→20:00)
[2022-01-25] MEDS: AZITHROMYCIN 500 MG TAB PO SCH (13:05)
[2022-01-25] MEDS ORDERED: AMIODARONE 450 MG in DEXTROSE 5% IN WATER 250 ML IV SCH ×2 (15:28)
[2022-01-25] MEDS: amLODIPine 5 MG TAB PO SCH (20:00)
[2022-01-25] MEDS: AMIODARONE 200 MG TAB PO SCH (21:54)
[2022-01-26] MEDS: SODIUM CHLORIDE 0.9% 1,000 ML IV SCH (05:39)
[2022-01-26 08:00] LABS: Blood Urea Nitrogen 11 mg/dL (7-17); Glucose 114 mg/dL (74-99); Potassium 4.2 mmol/L (3.5-5.1); Sodium 139 mmol/L (137-145)
[2022-01-26 08:01] LABS: African American GFR (CKD) >90 (>60 ml/min/1.73 sqM); Anion Gap 9 mmol/L; Carbon Dioxide 25 mmol/L (22-30); Chloride 105 mmol/L (98-107); Non-African American GFR(CKD) 86 (>60 ml/min/1.73 sqM)
[2022-01-26] MEDS: IPRATROPIUM 0.5 MG/2.5 ML NEBU INHALATION SCH ×4 (08:29→19:58)
[2022-01-26] MEDS: SYMBICORT 80-4.5 MCG INHALER INHALATION SCH ×2 (08:29→19:58)
[2022-01-26] MEDS: METOPROLOL TARTRATE 25 MG TAB PO SCH ×2 (09:15→21:10)
[2022-01-26] MEDS: APIXABAN 5 MG TAB PO SCH ×2 (09:15→21:10)
[2022-01-26] MEDS: AMIODARONE 200 MG TAB PO SCH ×2 (09:15→21:10)
--- NOTE | 2022-01-26 09:34 | P.PN ---
Subjective Progress Note Date: 01/26/22 Patient was seen and examined. No acute events overnight. Patient continues reports no more lightheadedness. Denies any chest pain or shortness of breath. HR improved to 50s today. General: non toxic, no distress, appears at stated age Derm: warm, dry Head: atraumatic, normocephalic, symmetric Eyes: EOMI, no lid lag, anicteric sclera Mouth: no lip lesion, mucus membranes moist Cardiovascular: Irregularly regular, no murmur Lungs: Decreased breath sounds bilateral, no rhonchi, no rales , no accessory muscle use Ext: no gross muscle atrophy, no edema, no contractures Neuro: no focal neuro deficits Psych: Alert, oriented, appropriate affect #Sepsis #Community-acquired pneumonia #Atrial fibrillation with rapid ventricular rate #Syncopal episode #Obesity Chronic conditions: COPD, sleep apnea, history of breast cancer Patient meets sepsis criteria with leukocytosis, tachycardia and positive source of infection. Chest x-ray shows possible infiltrate. Her COVID-19 test is negative. Patient be continued on Rocephin and azithromycin. Tylenol as needed for fever. DC IVF and encourage hydration by mouth. Telemetry monitoring. Blood culture negative so far. Sputum culture pending. Influenza PCR negative. Patient with atrial fibrillation with RVR, heart rate in the 50s today. Continu ed on Metoprolol. Amiodarone drip discontinued and patient started on PO. Maintain potassium greater than 4 and magnesium greater than 2. Continue Eliquis. Echocardiogram shows EF of 50-55%. Cardiology consulted for further management. Her syncopal episode is likely related to orthostatic hypotension. Orthostats positive. DC IVF and encourage hydration by mouth. ACS ruled out. Patient would benefit from structured weight loss program. Continue Symbicort and DuoNeb as needed for shortness of breath and wheezing. Patient does not use CPAP with regard to her CHACHA. She will need to follow-up with oncology in the outpatient setting for her history of breast cancer. Patient names her daughter Ora decision maker if she can't make decisions for herself. Patient would like to be full code. [Patient switched to amiodarone by mouth. Continued on metoprolol. Heart rate finally improved. We'll continue to monitor her heart rate overnight. Anticipated DC tomorrow.] Objective - Vital Signs Vital signs: Vital Signs Temp 98 F 01/26/22 08:00 Pulse 60 01/26/22 08:40 Resp 18 01/26/22 08:00 BP 146/82 01/26/22 08:00 Pulse Ox 96 01/26/22 08:00 FiO2 Intake & Output 01/25/22 01/26/22 01/26/22 18:59 06:59 18:59 Intake Total 596 Balance 596 Intake: Oral 596 Other: Voiding Method Toilet # Voids 1 2 - Labs CBC & Chem 7: 01/24/22 04:36 01/26/22 07:13 Labs: Abnormal Lab Results - Last 24 Hours (Table) 01/26/22 Range/Units 07:13 Glucose 114 H (74-99) mg/dL Calcium 8.0 L (8.4-10.2) mg/dL Microbiology - Last 24 Hours (Table) 01/23/22 13:18 Blood Culture - Preliminary Blood No Growth after 48 hours 01/23/22 13:18 Blood Culture - Preliminary Blood No Growth after 48 hours 01/23/22 09:03 Blood Culture - Preliminary Blood No Growth after 48 hours 01/23/22 09:03 Blood Culture - Preliminary Blood No Growth after 48 hours
--- NOTE | 2022-01-26 12:46 | P.PN ---
Subjective Progress Note Date: 01/26/22 Patient is seen resting comfortably in bed today with no signs of acute distress. She denies increased shortness of breath, chest pain, or palpitations. Yesterday afternoon she converted to sinus rhythm and states she is doing much better since then. She remains sinus rhythm with a heart rate of 58 on telemetry. She will continue on Eliquis, Lopressor. And will decrease amiodarone to 200 mg twice a day. Plan is for patient to be discharged home tomorrow Objective - Vital Signs Vital signs: Vital Signs Temp 98 F 01/26/22 08:00 Pulse 60 01/26/22 11:31 Resp 18 01/26/22 08:00 BP 146/82 01/26/22 08:00 Pulse Ox 96 01/26/22 08:00 FiO2 Intake & Output 01/25/22 01/26/22 01/26/22 18:59 06:59 18:59 Intake Total 596 Balance 596 Intake: Oral 596 Other: Voiding Method Toilet # Voids 1 2 - Exam PHYSICAL EXAM: VITAL SIGNS: Reviewed. GENERAL: Well-developed in no acute distress. HEENT: Head is normocephalic. Pupils are equal, round. Sclerae anicteric. Mucous membranes of the mouth are moist. NECK: Supple. No JVD or thyromegaly RESPIRATORY: Respirations even and unlabored. Lungs diminished to auscultation bilaterally. CARDIO: Regular rate and rhythm. S1 and S2 heard. No murmur or gallops. EXTREMITIES: Normal range of motion. No clubbing or cyanosis. Peripheral pulses intact. Negative for bilateral lower extremity edema NEURO: Orientated to person, time, mood is appropriate - Labs CBC & Chem 7: 01/24/22 04:36 01/26/22 07:13 Labs: Abnormal Lab Results - Last 24 Hours (Table) 01/26/22 Range/Units 07:13 Glucose 114 H (74-99) mg/dL Calcium 8.0 L (8.4-10.2) mg/dL Microbiology - Last 24 Hours (Table) 01/23/22 09:03 Blood Culture - Preliminary Blood No Growth after 72 hours 01/23/22 09:03 Blood Culture - Preliminary Blood No Growth after 72 hours 01/23/22 13:18 Blood Culture - Preliminary Blood No Growth after 48 hours 01/23/22 13:18 Blood Culture - Preliminary Blood No Growth after 48 hours Assessment and Plan Assessment: Paroxysmal atrial fibrillation with rapid ventricular response -[id number] score 4 Symptoms of productive cough, night sweats, decreased appetite, generalized fatigue Possible Pneumonia Reported unwitnessed syncopal episode 2 days prior to admission Hypertension History of right breast cancer status post chemotherapy History of type 2 diabetes no longer on medications Obstructive sleep apnea Plan: Decrease amiodarone to 200 mg twice a day Continue metoprolol tartrate Continue cardiac telemetry Continue Eliquis 5mg BID, case management consulted for coverage, cost is $37 copay Plan as patient to be discharged home tomorrow Further recommendations based on clinical course Nurse practitioner note has been reviewed by physician. Signing provider agrees with the documented findings, assessment, and plan of care.
[2022-01-26] MEDS ORDERED: ONDANSETRON 4 MG/2 ML VIAL IVP PRN (13:00)
--- NOTE | 2022-01-26 19:05 | XR ---
EXAMINATION TYPE: XR KUB portable DATE OF EXAM: 01/26/2022 COMPARISON: 12/18/2012 HISTORY: Vomiting TECHNIQUE: 2 views FINDINGS: 2 views supine show no sign of intestinal obstruction or pneumoperitoneum. Fecal pattern is normal. Lung bases are clear. There are clips from cholecystectomy. No calcifications seen over the kidneys. IMPRESSION: Nonacute abdomen. No adverse change.
[2022-01-26] MEDS ORDERED: polyethylene glycoL 3350 17 GM POWD.PACK PO STA (20:10)
[2022-01-26] MEDS: amLODIPine 5 MG TAB PO SCH (21:10)
[2022-01-27] MEDS ORDERED: NITROGLYCERIN SL TABS 0.4 MG TAB SUBLINGUAL ONE (00:29)
[2022-01-27] MEDS ORDERED: NITROGLYCERIN SL TABS 0.4 MG TAB SUBLINGUAL STA (00:32)
[2022-01-27] MEDS: IPRATROPIUM-ALBUTEROL 3 ML NEB INHALATION PRN (00:46)
[2022-01-27] MEDS: IPRATROPIUM 0.5 MG/2.5 ML NEBU INHALATION SCH ×2 (08:30→11:27)
[2022-01-27] MEDS: SYMBICORT 80-4.5 MCG INHALER INHALATION SCH (08:30)
[2022-01-27] MEDS: APIXABAN 5 MG TAB PO SCH (08:48)
[2022-01-27] MEDS: METOPROLOL TARTRATE 25 MG TAB PO SCH (08:48)
[2022-01-27] MEDS: AMIODARONE 200 MG TAB PO SCH (08:49)
[2022-01-27 08:52] VITALS: BP 107/51; RESP 18; TEMP 98.4
--- NOTE | 2022-01-27 11:14 | P.DS ---
Providers Date of admission: 01/23/22 12:41 Expected date of discharge: 01/27/22 Attending physician: Michael Melissa MD Consults: 01/23/22 12:38 Consult Physician Routine Consulting Provider: Anthony Basilio Consult Reason/Comments: New-onset atrial fibrillation Do you want consulting provider notified?: Yes Primary care physician: [facility] Course: Patient is a 71-year-old female with PMH of COPD, sleep apnea, right-sided breast cancer, and hypertension that presents the ED for cough and syncopal episode. Patient reports a cough that is been ongoing for the past 2 weeks. She reports her cough to be wet as she is unable to bring up sputum. She also reports shortness of breath has been ongoing for the past 2 weeks that is worsened with exertion. This morning, patient had a syncopal episode while making a jelly sandwich. She reports a coughing fit prior to her syncopal episode. There is no one to witness her syncopal episode. She reports night sweats and lack of appetite over the last 3 days. She denies any headache, lower extremity edema, nausea or vomiting, fever or chills, chest pain, palpitations, changes in urination or bowel habits. No changes in weight. She denies any numbness/weakness/tingling of the extremities. In the ED, she was noted to be in atrial fibrillation with RVR. She was tachypneic with a respiratory rate of 29 and O2 saturation of 93% on room air. Her vital signs were otherwise stable. CBC showed leukocytosis of 12.7. INR was 1. CMP shows sodium 135, glucose 140. Lactic acid was 1.9. Troponin was 0.015 with EKG showing atrial fibrillation with RVR. BNP was 3730. COVID-19 negative. Chest x-ray showed subtle posterior infiltrate. Patient is admitted for further management of atrial for ablation and sepsis related to pneumonia. Patient met sepsis criteria leukocytosis, tachycardia and positive source of infection. She was started on Rocephin and azithromycin. Blood cultures were negative at the time of discharge. Sputum culture was never collected. Influenza and COVID-19 test negative. She completed a course of antibiotics during her hospitalization. Patient was noted to be in atrial fibrillation with RVR. She was initially started on a Cardizem drip and her metoprolol was increased. Cardizem drip was discontinued but patient continued to be in rapid ventricular rate. Amiodarone bolus and drip was started. She was subsequently switched to amiodarone by mouth and continued on metoprolol. Heparin drip was discontinued and patient was started on Eliquis for anticoagulation. Her orthostatic vitals were positive for which she received IV hydration. Acute coronary syndrome was ruled out. Echocardiogram was done which showed EF of 50- 55%. Her lightheadedness resolved as her rapid ventricular rate resolved. Patient was seen and examined. She had 2 episodes of abdominal cramping and vomiting yesterday. KUB was negative. Her nausea and vomiting has resolved this morning. She also experienced pressure-like sensation in her chest yesterday which has resolved today. Her heart rate has been in the 40s and 50s. Otherwise, she denies any shortness of breath or lightheadedness. Plans to obtain troponin. Patient likely to be discharged today. She is advised to continue amiodarone 200 mg by mouth twice a day and metoprolol 50 mg by mouth twice a day. Continue Eliquis for anticoagulation. She is advised to follow-up with her PCP within 1- 2 days of discharge. Advised to follow-up with cardiology within 1 week of discharge. General: non toxic, no distress, appears at stated age Derm: warm, dry Head: atraumatic, normocephalic, symmetric Eyes: EOMI, no lid lag, anicteric sclera Mouth: no lip lesion, mucus membranes moist Cardiovascular: Irregularly regular, no murmur, positive posterior tibial pulse bilateral, Lungs: Decreased breath sounds bilateral, no rhonchi, no rales , no accessory muscle use Abdominal: soft, nontender to palpation, no guarding, no appreciable organomegaly Ext: no gross muscle atrophy, no edema, no contractures Neuro: no focal neuro deficits Psych: Alert, oriented, appropriate affect Discharge diagnosis: #Sepsis #Community-acquired pneumonia #Atrial fibrillation with rapid ventricular rate #Syncopal episode #Obesity Chronic conditions: COPD, sleep apnea, history of breast cancer This complex discharge took about 35 minutes to complete. Pertinent Studies: Chest x-ray Echocardiogram KUB Patient Condition at Discharge: Stable Plan - Discharge Summary Discharge Rx Participant: No New Discharge Prescriptions: New RX: Apixaban [Eliquis] 5 mg PO BID #60 tab RX: Amiodarone [Cordarone] 200 mg PO BID #60 tab RX: Metoprolol Tartrate [Lopressor] 50 mg PO BID #120 tab Continue RX: Fluticasone/Umeclidin/Vilanter [Trelegy Ellipta 200-62.5-25] 1 puff INHALATION RT-HS RX: amLODIPine [Norvasc] 5 mg PO HS Discharge Medication List RX: Fluticasone/Umeclidin/Vilanter [Trelegy Ellipta 200-62.5-25] 1 puff INHALATION RT-HS 01/23/22 [History] RX: amLODIPine [Norvasc] 5 mg PO HS 01/23/22 [History] RX: Apixaban [Eliquis] 5 mg PO BID #60 tab 01/24/22 [Rx] RX: Amiodarone [Cordarone] 200 mg PO BID #60 tab 01/27/22 [Rx] RX: Metoprolol Tartrate [Lopressor] 50 mg PO BID #120 tab 01/27/22 [Rx] Follow up Appointment(s)/Referral(s): Edinson Rebolledo DO [Primary Care Provider] - 1-2 days Anthony Basilio MD [STAFF PHYSICIAN] - 2 Weeks
[2022-01-27 11:29] VITALS: PULSE 60
--- NOTE | 2022-01-27 13:43 | P.PN ---
Subjective Progress Note Date: 01/27/22 Patient is seen this morning resting comfortably in bed in no signs of acute distress. She reports she did have an episode of chest pain last night. She was up walking around in the room became dizzy and developed chest pain. Last about 30 seconds. She took a nitro and it seemed to improve the chest pain. Patient had 2 troponins drawn this morning both were negative. Will decrease lopresser to 25mg due to bradycardia Objective - Vital Signs Vital signs: Vital Signs Temp 98.4 F 01/27/22 08:00 Pulse 60 01/27/22 11:37 Resp 18 01/27/22 08:00 BP 107/51 01/27/22 08:00 Pulse Ox 95 01/27/22 08:00 FiO2 Intake & Output 01/26/22 01/27/22 01/27/22 18:59 06:59 18:59 Intake Total 500 360 Balance 500 360 Intake: Intake, IV Titration 0 Amount Sodium Chloride 0.9% 1, 0 000 ml @ 100 mls/hr IV . Q10H TASNEEM Rx#:[id number] Oral 500 360 Other: # Voids 1 # Bowel Movements 0 - Exam PHYSICAL EXAM: VITAL SIGNS: Reviewed. GENERAL: Well-developed in no acute distress. HEENT: Head is normocephalic. Pupils are equal, round. Sclerae anicteric. Mucous membranes of the mouth are moist. NECK: Supple. No JVD or thyromegaly RESPIRATORY: Respirations even and unlabored. Lungs diminished to auscultation bilaterally. CARDIO: Regular rate and rhythm. S1 and S2 heard. No murmur or gallops. EXTREMITIES: Normal range of motion. No clubbing or cyanosis. Peripheral pulses intact. Negative for bilateral lower extremity edema NEURO: Orientated to person, time, mood is appropriate - Labs CBC & Chem 7: 01/24/22 04:36 01/26/22 07:13 Labs: Microbiology - Last 24 Hours (Table) 01/23/22 09:03 Blood Culture - Preliminary Blood No Growth after 96 hours 01/23/22 09:03 Blood Culture - Preliminary Blood No Growth after 96 hours 01/23/22 13:18 Blood Culture - Preliminary Blood No Growth after 72 hours 01/23/22 13:18 Blood Culture - Preliminary Blood No Growth after 72 hours Assessment and Plan Assessment: Paroxysmal atrial fibrillation with rapid ventricular response -[id number] score 4 Symptoms of productive cough, night sweats, decreased appetite, generalized fatigue Possible Pneumonia Reported unwitnessed syncopal episode 2 days prior to admission Hypertension History of right breast cancer status post chemotherapy History of type 2 diabetes no longer on medications Obstructive sleep apnea Plan: Decrease metoprolol tartrate to 25mg daily Continue cardiac telemetry Continue Eliquis 5mg BID, case management consulted for coverage, cost is $37 copay Plan as patient to be discharged home Further recommendations based on clinical course Nurse practitioner note has been reviewed by physician. Signing provider agrees with the documented findings, assessment, and plan of care.
== END 2022-01-27 13:30 | disposition home or self-care (01) | DRG 871 ==
LOC: EC 08:13 → 3SCARD 12:41
PROVIDERS: ADMIT Family Medicine; ATTEND Family Medicine
DX: A41.9 Sepsis, unspecified organism (principal); J18.9 Pneumonia, unspecified organism; J44.0 Chronic obstructive pulmonary disease with (acute) lower respiratory infection; E66.9 Obesity, unspecified; Z68.33 Body mass index [BMI] 33.0-33.9, adult; Z20.822 Contact with and (suspected) exposure to COVID-19; E86.0 Dehydration; E11.9 Type 2 diabetes mellitus without complications; F32.A Depression, unspecified; G47.33 Obstructive sleep apnea (adult) (pediatric); I48.0 Paroxysmal atrial fibrillation; I10 Essential (primary) hypertension; I95.1 Orthostatic hypotension; I34.0 Nonrheumatic mitral (valve) insufficiency; Z85.3 Personal history of malignant neoplasm of breast; Z79.01 Long term (current) use of anticoagulants; Z79.899 Other long term (current) drug therapy; Z90.11 Acquired absence of right breast and nipple; Z98.84 Bariatric surgery status; Z92.21 Personal history of antineoplastic chemotherapy
CPT/HCPCS: 36415; 71046; 74018; 80048; 80053; 83605; 83735; 83880; 84484; 85025; 85610; 85730; 87040; 87502; 87635; 93005; 93306; 94640; 94760; 96365; 96366; 96368; 96375; 99291

== ENCOUNTER 2022-05-20 21:23 | Emergency (ER) | payer MEDICARE ==
[2022-05-20 21:29] VITALS: TEMP 97.9
[2022-05-20 21:56] LABS: Basophils % (A) 0 %; Eosinophils % (A) 0 %; HCT 44.2 % (34.0-46.0); Lymphocytes # (A) 1.3 k/uL (1.0-4.8); Lymphocytes % (A) 18 %; MCH 29.5 pg (25.0-35.0); MCHC 31.8 g/dL (31.0-37.0); MCV 92.7 fL (80.0-100.0); Monocytes # (A) 0.3 k/uL (0-1.0); Monocytes % (A) 4 %; Neutrophils # (A) 5.6 k/uL (1.3-7.7); Neutrophils % (A) 75 %; Platelet Count 246 k/uL (150-450); RBC 4.76 m/uL (3.80-5.40); RDW 13.6 % (11.5-15.5); WBC 7.4 k/uL (3.8-10.6)
[2022-05-20 22:09] LABS: Calcium 8.9 mg/dL (8.4-10.2); Magnesium 1.8 mg/dL (1.6-2.3); Potassium 4.2 mmol/L (3.5-5.1); Total Bilirubin 0.3 mg/dL (0.2-1.3); Total Protein 6.7 g/dL (6.3-8.2)
[2022-05-20 22:12] LABS: Partial Thromboplastin Time 26.1 sec (22.0-30.0); Prothrombin Time 10.6 sec (9.0-12.0)
--- NOTE | 2022-05-20 23:56 | ED ---
Chest Pain HPI - General Chief Complaint: Chest Pain Stated Complaint: Chest Pain Time Seen by Provider: 05/20/22 23:39 Source: patient Mode of arrival: wheelchair Limitations: no limitations - History of Present Illness Initial Comments: This patient is 71-year-old woman presenting to have evaluation of chest pain that had started 60-90 minutes ago. She states she was at rest when it came on. It is substernal she describes as an aching or tight. She has not noted worsening or relieving factors. The patient states she has not been feeling right since Friday or so. She had actually gone to see her physician. She has had fatigue, generalized weakness, little bit of cough, some nausea. She is having generalized body aches, particularly the bilateral hips and upper thighs. She states she had a Saenz test that was negative. She was diagnosed with flu. She was given course of medications including ondansetron, and then is on it today, and Medrol Dosepak. She states she is just not getting any better MD Complaint: chest pain Onset/Timin -: hour(s) Onset: during rest Pain Location: substernal Pain Radiation: none Severity: moderate Quality: aching Consistency: constant Improves With: nothing Worsens With: nothing Treatments Prior to Arrival: none - Related Data Home Medications Medication Instructions Recorded Confirmed Fluticasone/Umeclidin/Vilanter 1 puff INHALATION RT-HS 01/23/22 01/23/22 [Trelegy Ellipta 200-62.5-25] amLODIPine [Norvasc] 5 mg PO HS 01/23/22 01/23/22 Previous Rx's Medication Instructions Recorded Apixaban [Eliquis] 5 mg PO BID #60 tab 01/24/22 Amiodarone [Cordarone] 200 mg PO BID #60 tab 01/27/22 Metoprolol Tartrate [Lopressor] 25 mg PO BID #30 tablet 01/27/22 Allergies Allergy/AdvReac Type Severity Reaction Status Date / Time codeine Allergy Unknown Verified 01/23/22 10:57 losartan Allergy Dyspnea Verified 01/23/22 10:59 meperidine HCl [From Demerol] Allergy Unknown Verified 01/23/22 10:57 morphine Allergy Unknown Verified 01/23/22 10:57 Penicillins Allergy Rash/Hives/ Verified 01/23/22 10:57 Hallucinati ons Review of Systems ROS Statement: Those systems with pertinent positive or pertinent negative responses have been documented in the HPI. ROS Other: All systems not noted in ROS Statement are negative. Constitutional: Reports: weakness. Denies: fever, chills Respiratory: Denies: cough, dyspnea Cardiovascular: Reports: chest pain, dyspnea on exertion. Denies: palpitations, orthopnea, edema, syncope Gastrointestinal: Denies: abdominal pain, nausea, vomiting, diarrhea Genitourinary: Denies: dysuria, hematuria Musculoskeletal: Denies: back pain Skin: Denies: rash Neurological: Denies: headache, weakness EKG Findings - EKG Results: EKG: interpreted by ERMD, sinus rhythm, normal axis, normal QRS, normal ST/T EKG shows: bradycardia (Rate 57 bpm) Past Medical History Past Medical History: Atrial Fibrillation, Cancer, Diabetes Mellitus, GI Bleed, Hypertension, Liver Disease, Osteoarthritis (OA), Sleep Apnea/CPAP/BIPAP Additional Past Medical History / Comment(s): states current blood in stool, states has not taken diabetic meds in 5 yrs, states some memory loss, 2012 right breast cancer had sx and chemo (in remission),diabetic retinopathy,upper gi bleed/anemia,(pt could not verify),migraines,meneires disease, eileen-no longer uses cpap, 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 History of Any Multi-Drug Resistant Organisms: None Reported Past Surgical History: Bariatric Surgery, Breast Surgery, Cholecystectomy Additional Past Surgical History / Comment(s): rt breast core bx,right mastectomy, tummy tuck, liposuction,hiatal hernia repair,gastric bypass 1998,port removed Past Anesthesia/Blood Transfusion Reactions: Postoperative Nausea & Vomiting (PONV) Past Psychological History: Depression Smoking Status: Never smoker Past Alcohol Use History: Rare Past Drug Use History: None Reported - Past Family History Father History Unknown: Yes Family Medical History: No Reported History Mother History Unknown: Yes Family Medical History: No Reported History General Exam Limitations: no limitations General appearance: alert, in no apparent distress Head exam: Present: atraumatic, normocephalic Eye exam: Present: normal appearance. Absent: scleral icterus, conjunctival injection Neck exam: Present: normal inspection Respiratory exam: Present: rhonchi. Absent: respiratory distress, wheezes, rales, stridor, accessory muscle use Cardiovascular Exam: Present: regular rate, normal rhythm, normal heart sounds. Absent: systolic murmur, diastolic murmur, rubs, gallop GI/Abdominal exam: Present: soft. Absent: distended, tenderness, guarding, rebound, rigid, mass Extremities exam: Present: normal inspection, normal capillary refill. Absent: pedal edema, calf tenderness Back exam: Present: normal inspection. Absent: CVA tenderness (R), CVA tenderness (L) Neurological exam: Present: alert Skin exam: Present: warm, dry, intact, normal color. Absent: rash Course Vital Signs 05/20/22 05/21/22 05/21/22 21:25 00:10 02:01 Temperature 97.9 F Pulse Rate 58 L 44 L 50 L Respiratory 20 14 18 Rate Blood Pressure 178/86 158/93 154/99 O2 Sat by Pulse 92 L 94 L 94 L Oximetry Chest Pain MDM - MDM This patient is 71-year-old woman who presents here with complaints of generalized weakness, fatigue, cough. The patient had been seen in clinic and was prescribed medications and presents here because she states that it is not really helping much. Patient's exam and workup consistent with influenza a infection. The patient did have a chest x-ray which I interpreted as not showing pulmonic infiltrate, cardiomegaly, or congestive heart failure. The patient's respiratory status here is stable, we discussed appropriate further care and follow-up as well as return parameters Was pt. sent in by a medical professional or institution? @ -No Did you speak to anyone other than the patient for history? @ -[no Did you review nursing and triage notes? @ -[agree Were old charts reviewed? @ -[ Differential Diagnosis? @ -Differential Dyspnea: Coronary syndrome, arrhythmia, tamponade, asthma, COPD, pulmonary embolism, pneumonia, pneumothorax, pulmonary effusion, anaphylaxis, diabetic ketoacidosis, flailed chest, pulmonary contusion, diaphragmatic rupture, anemia, neuromuscular, this is not meant to be an all-inclusive list. EKG interpreted by me (3pts min.)? @ -[see chart X-rays interpreted by me (1pt min.)? @ -see chart CT interpreted by me (1pt min.)? @ - U/S interpreted by me (1pt. min.)? @ -[none] What testing was considered but not performed? (CT, X-rays, U/S, labs)? Why? @ [ What meds were considered but not given? Why? @ -[none] Did you discuss the management of the patient with other professionals? @ -[No Did you reconcile home meds? @ -[no Was smoking cessation discussed for >3mins.? @ -[no Was critical care preformed (if so, how long)? @ -[none] Were there social determinants of health that impacted care today? How? (Homelessness, low income, unemployed, alcoholism, drug addiction, transportation, low edu. Level, literacy, decrease access to med. care, [facility], rehab)? @ -[no Was there de-escalation of care discussed even if they declined? (Discuss DNR or withdrawal of care, Hospice)? @ -[No What co-morbidities impacted this encounter? (DM, HTN, Smoking, COPD, CAD, Cancer, CVA, Hep., AIDS, mental health diagnosis, sleep apnea, morbid obesity)? @ -[none Was patient admitted / discharged? @ -[Discharged Undiagnosed new problem with uncertain prognosis? @ -[none] Drug Therapy requiring intensive monitoring for toxicity (Heparin, Nitro, Insulin, Cardizem)? @ -[none] Were any procedures done? @ -[none] Diagnosis/symptom? @ -[Acute influenza A infection Acute, or Chronic, or Acute on Chronic? @ -[Acute Uncomplicated (without systemic symptoms) or Complicated (systemic symptoms)? @ -[Uncomplicated Side effects of treatment? @ -[none] Exacerbation, Progression, or Severe Exacerbation] @ -[no] Poses a threat to life or bodily function? @ -[No Disposition Clinical Impression: Influenza A Disposition: HOME SELF-CARE Condition: Fair Instructions (If sedation given, give patient instructions): Influenza (ED) Is patient prescribed a controlled substance at d/c from ED?: No Referrals: Edinson Rebolledo DO [Primary Care Provider] - 1-2 days
[2022-05-20] MEDS ORDERED: INSULIN REGULAR 100 UNIT/ML VIAL (IV) SQ STA (23:59)
--- NOTE | 2022-05-21 | XR ---
EXAMINATION TYPE: XR chest 2V DATE OF EXAM: 05/20/2022 COMPARISON: 01/23/2022 HISTORY: Chest pain TECHNIQUE: 2 views FINDINGS: There is no heart failure nor confluent pneumonic infiltrate. Costophrenic angles are clear . There are no hilar masses. The bony thorax is intact. IMPRESSION: No active cardiopulmonary disease. Normal heart. No change.
[2022-05-21 00:40] LABS: Glucose,Whole Blood 116 mg/dL (70-110)
[2022-05-21 02:02] VITALS: BP 154/99; PULSE 50; RESP 18
== END 2022-05-21 02:01 | disposition home or self-care (01) ==
LOC: EC 21:23
DX: J10.1 Influenza due to other identified influenza virus with other respiratory manifestations (principal); I48.91 Unspecified atrial fibrillation; E11.9 Type 2 diabetes mellitus without complications; I10 Essential (primary) hypertension; F32.A Depression, unspecified; Z88.0 Allergy status to penicillin; Z88.5 Allergy status to narcotic agent; Z88.8 Allergy status to other drugs, medicaments and biological substances; Z79.899 Other long term (current) drug therapy; Z20.822 Contact with and (suspected) exposure to COVID-19
CPT/HCPCS: 36415; 71046; 80053; 83735; 83880; 84484; 85025; 85610; 85730; 87636; 93005; 99285

== ENCOUNTER 2022-10-14 06:58 | Emergency (ER) | payer MEDICARE ==
[2022-10-14 07:06] VITALS: RESP 18
[2022-10-14] MEDS ORDERED: SODIUM CHLORIDE 0.9% 1,000 ML IV STA (07:15)
[2022-10-14] MEDS ORDERED: ONDANSETRON 4 MG/2 ML VIAL IVP STA (07:15)
[2022-10-14] MEDS ORDERED: KETOROLAC 15 MG/ML 1 ML VIAL IVP STA (07:15)
--- NOTE | 2022-10-14 07:24 | ED ---
Back Pain HPI - General Chief Complaint: Abdominal Pain Stated Complaint: PAIN IN LEFT SIDE Time Seen by Provider: 10/14/22 07:08 Source: patient, RN notes reviewed Mode of arrival: ambulatory Limitations: no limitations - History of Present Illness Initial Comments: This is a 71-year-old female who presents to the emergency department for left lower back pain. States that this started 3 days ago. She has some pain wrapping around into the abdomen. She also started to feel somewhat nauseous last night and into this morning, but has not yet thrown up. Denies any urinary symptoms or history of kidney stones. Denies any history of similar symptoms in the past. She has been applying over the counter cream pain medications with only minimal relief. Denies any fevers, chills, sore throat, cough, dyspnea, chest pain, palpitations, vomiting, diarrhea, or headaches. MD Complaint: back pain Onset/Timin -: days(s) - Related Data Home Medications Medication Instructions Recorded Confirmed Fluticasone/Umeclidin/Vilanter 1 puff INHALATION RT-HS 01/23/22 01/23/22 [Trelegy Ellipta 200-62.5-25] amLODIPine [Norvasc] 5 mg PO HS 01/23/22 01/23/22 Previous Rx's Medication Instructions Recorded Apixaban [Eliquis] 5 mg PO BID #60 tab 01/24/22 Amiodarone [Cordarone] 200 mg PO BID #60 tab 01/27/22 Metoprolol Tartrate [Lopressor] 25 mg PO BID #30 tablet 01/27/22 Baclofen 5 mg PO Q8H PRN #15 tablet 10/14/22 Ondansetron Odt [Zofran Odt] 4 mg PO Q8HR PRN #15 tab 10/14/22 Allergies Allergy/AdvReac Type Severity Reaction Status Date / Time codeine Allergy Unknown Verified 10/14/22 07:05 losartan Allergy Dyspnea Verified 10/14/22 07:05 meperidine HCl [From Demerol] Allergy Unknown Verified 10/14/22 07:05 morphine Allergy Unknown Verified 10/14/22 07:05 Penicillins Allergy Rash/Hives/ Verified 10/14/22 07:05 Hallucinati ons Review of Systems ROS Statement: Those systems with pertinent positive or pertinent negative responses have been documented in the HPI. ROS Other: All systems not noted in ROS Statement are negative. 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 History of Any Multi-Drug Resistant Organisms: None Reported Past Surgical History: Bariatric Surgery, Breast Surgery, Cholecystectomy Additional Past Surgical History / Comment(s): rt breast core bx,right mastectomy, tummy tuck, liposuction,hiatal hernia repair,gastric bypass 1998,port removed Past Anesthesia/Blood Transfusion Reactions: Postoperative Nausea & Vomiting (PONV) Past Psychological History: Depression Smoking Status: Never smoker Past Alcohol Use History: Rare Past Drug Use History: None Reported - Past Family History Father History Unknown: Yes Family Medical History: No Reported History Mother History Unknown: Yes Family Medical History: No Reported History General Exam Limitations: no limitations General appearance: alert, in distress Head exam: Present: atraumatic, normocephalic, normal inspection Respiratory exam: Present: normal lung sounds bilaterally. Absent: respiratory distress, wheezes, rales, rhonchi, stridor Cardiovascular Exam: Present: regular rate, normal rhythm, normal heart sounds. Absent: systolic murmur, diastolic murmur, rubs, gallop, clicks GI/Abdominal exam: Present: soft, normal bowel sounds. Absent: distended, tenderness, guarding, rebound, rigid Back exam: Present: other (Left lower back) Neurological exam: Present: alert, oriented X3, CN II-XII intact Psychiatric exam: Present: normal affect, normal mood Skin exam: Present: warm, dry, intact, normal color. Absent: rash Course Vital Signs 10/14/22 10/14/22 07:05 11:56 Temperature 98.0 F 98.2 F Pulse Rate 64 54 L Respiratory 18 18 Rate Blood Pressure 155/90 136/81 O2 Sat by Pulse 92 L 98 Oximetry Medical Decision Making - Medical Decision Making This is a 71-year-old female who presents to the emergency department for left lower back pain. Was pt. sent in by a medical professional or institution? @ -No Did you speak to anyone other than the patient for history? @ -No Did you review nursing and triage notes? @ -Yes, and I agree, it is accurate with regards to the patient's symptoms. Were old charts reviewed? @ -No Differential Diagnosis? @ -Differential Back Pain: Strain, zoster, cauda equina syndrome, epidural abscess, vertebral osteomyelitis, discitis, fracture, subluxation, disc herniation, DJD, spinal stenosis, dissection, AAA, pancreatitis, peptic ulcer disease, pyelonephritis, kidney stone, this is not meant to be an all-inclusive list. EKG interpreted by me (3pts min.)? @ -Not obtained X-rays interpreted by me (1pt min.)? @ -Not obtained CT interpreted by me (1pt min.)? @ -Computed tomography scan of the abdomen and pelvis obtained. My interpretation identifies no evidence of ureteral calculus or hydronephrosis. U/S interpreted by me (1pt. min.)? @ -Not obtained What testing was considered but not performed? (CT, X-rays, U/S, labs)? Why? @ -None What meds were considered but not given? Why? @ -None Did you discuss the management of the patient with other professionals? @ -No Did you reconcile home meds? @ -No Was smoking cessation discussed for >3mins.? @ -No Was critical care preformed (if so, how long)? @ -No Were there social determinants of health that impacted care today? How? (Homelessness, low income, unemployed, alcoholism, drug addiction, transportation, low edu. Level, literacy, decrease access to med. care, intermediate, rehab)? @ -No Was there de-escalation of care discussed even if they declined? (Discuss DNR or withdrawal of care, Hospice)? @ -No What co-morbidities impacted this encounter? (DM, HTN, Smoking, COPD, CAD, Cancer, CVA, Hep., AIDS, mental health diagnosis, sleep apnea, morbid obesity)? @ -DM, HTN, HLD, morbid obesity Was patient admitted / discharged? @ -Discharged. Computed tomography scan of the abdomen and pelvis reveals no evidence of ureteral calculus or other acute process to account for her symptoms. Pain was controlled in the emergency department. Advised this is likely musculoskeletal in nature. Prescription for Baclofen provided with dos ing instructions reviewed. Advised this may be sedating and she should avoid driving or operating machinery when taking this. Rx for Zofran provided as well for any additional nausea. She is otherwise advised to alternate with ibuprofen and Tylenol and follow up with her PCP. Undiagnosed new problem with uncertain prognosis? @ -None Drug Therapy requiring intensive monitoring for toxicity (Heparin, Nitro, Insulin, Cardizem)? @ -None Were any procedures done? @ -None Diagnosis/symptom? @ -Low back strain Acute, or Chronic, or Acute on Chronic? @ -Acute Uncomplicated (without systemic symptoms) or Complicated (systemic symptoms)? @ -Uncomplicated Side effects of treatment? @ -None Exacerbation, Progression, or Severe Exacerbation] @ -Not applicable Poses a threat to life or bodily function? @ -No Return precautions reviewed in depth, the patient is instructed to return to the emergency department with any new, worsening, or concerning symptoms. Patient verbalized understanding. This case was discussed in detail with the attending ED physician, Dr. Harrington. Presentation, findings, and treatment plan discussed in detail as well. - Lab Data Result diagrams: 10/14/22 07:41 10/14/22 07:41 Lab Results 10/14/22 10/14/22 10/14/22 Range/Units 07:41 07:41 07:41 WBC 7.1 (3.8-10.6) k/uL RBC 4.92 (3.80-5.40) m/uL Hgb 14.8 (11.4-16.0) gm/dL Hct 45.5 (34.0-46.0) % MCV 92.5 (80.0-100.0) fL MCH 30.0 (25.0-35.0) pg MCHC 32.4 (31.0-37.0) g/dL RDW 13.8 (11.5-15.5) % Plt Count 272 (150-450) k/uL MPV 7.6 Neutrophils % 49 % Lymphocytes % 42 % Monocytes % 5 % Eosinophils % 2 % Basophils % 0 % Neutrophils # 3.4 (1.3-7.7) k/uL Lymphocytes # 3.0 (1.0-4.8) k/uL Monocytes # 0.3 (0-1.0) k/uL Eosinophils # 0.1 (0-0.7) k/uL Basophils # 0.0 (0-0.2) k/uL Sodium 140 (137-145) mmol/L Potassium 4.1 (3.5-5.1) mmol/L Chloride 102 (98-107) mmol/L Carbon Dioxide 32 H (22-30) mmol/L Anion Gap 6 mmol/L BUN 19 H (7-17) mg/dL Creatinine 0.81 (0.52-1.04) mg/dL Est GFR (CKD-EPI)AfAm 85 (>60 ml/min/1.73 sqM) Est GFR (CKD-EPI)NonAf 73 (>60 ml/min/1.73 sqM) Glucose 118 H (74-99) mg/dL Plasma Lactic Acid Guero 1.2 (0.7-2.0) mmol/L Calcium 9.4 (8.4-10.2) mg/dL Total Bilirubin 0.6 (0.2-1.3) mg/dL AST 24 (14-36) U/L ALT 19 (4-34) U/L Alkaline Phosphatase 74 (38-126) U/L Total Protein 7.5 (6.3-8.2) g/dL Albumin 4.4 (3.5-5.0) g/dL Urine Color Urine Appearance (Clear) Urine pH (5.0-8.0) Ur Specific [place] (1.001-1.035) Urine Protein (Negative) Urine Glucose (UA) (Negative) Urine Ketones (Negative) Urine Blood (Negative) Urine Nitrite (Negative) Urine Bilirubin (Negative) Urine Urobilinogen (<2.0) mg/dL Ur Leukocyte Esterase (Negative) Urine WBC (0-5) /hpf Ur Squamous Epith Cells (0-4) /hpf Urine Mucus (None) /hpf 10/14/22 Range/Units 09:45 WBC (3.8-10.6) k/uL RBC (3.80-5.40) m/uL Hgb (11.4-16.0) gm/dL Hct (34.0-46.0) % MCV (80.0-100.0) fL MCH (25.0-35.0) pg MCHC (31.0-37.0) g/dL RDW (11.5-15.5) % Plt Count (150-450) k/uL MPV Neutrophils % % Lymphocytes % % Monocytes % % Eosinophils % % Basophils % % Neutrophils # (1.3-7.7) k/uL Lymphocytes # (1.0-4.8) k/uL Monocytes # (0-1.0) k/uL Eosinophils # (0-0.7) k/uL Basophils # (0-0.2) k/uL Sodium (137-145) mmol/L Potassium (3.5-5.1) mmol/L Chloride (98-107) mmol/L Carbon Dioxide (22-30) mmol/L Anion Gap mmol/L BUN (7-17) mg/dL Creatinine (0.52-1.04) mg/dL Est GFR (CKD-EPI)AfAm (>60 ml/min/1.73 sqM) Est GFR (CKD-EPI)NonAf (>60 ml/min/1.73 sqM) Glucose (74-99) mg/dL Plasma Lactic Acid Guero (0.7-2.0) mmol/L Calcium (8.4-10.2) mg/dL Total Bilirubin (0.2-1.3) mg/dL AST (14-36) U/L ALT (4-34) U/L Alkaline Phosphatase (38-126) U/L Total Protein (6.3-8.2) g/dL Albumin (3.5-5.0) g/dL Urine Color Light Yellow Urine Appearance Clear (Clear) Urine pH 6.5 (5.0-8.0) Ur Specific [place] 1.036 H (1.001-1.035) Urine Protein Negative (Negative) Urine Glucose (UA) Negative (Negative) Urine Ketones Negative (Negative) Urine Blood Negative (Negative) Urine Nitrite Negative (Negative) Urine Bilirubin Negative (Negative) Urine Urobilinogen <2.0 (<2.0) mg/dL Ur Leukocyte Esterase Moderate H (Negative) Urine WBC 1 (0-5) /hpf Ur Squamous Epith Cells 4 (0-4) /hpf Urine Mucus Rare H (None) /hpf - Radiology Data Radiology results: report reviewed, image reviewed Disposition Clinical Impression: Left low back pain Disposition: HOME SELF-CARE Instructions (If sedation given, give patient instructions): Low Back Strain (ED) Additional Instructions: Return to the emergency department with any new, worsening, or concerning symptoms. You can take the baclofen up to 3 times daily. Be aware that this may make you drowsy and you should avoid driving or operating machinery when taking this. You can also apply warm moist heat to the area and continue with [id number] pain creams. You may also take Tylenol. Follow up with your primary care provider in 1-2 days. Prescriptions: Baclofen 5 mg PO Q8H PRN #15 tablet PRN Reason: Pain Ondansetron Odt [Zofran Odt] 4 mg PO Q8HR PRN #15 tab PRN Reason: Nausea And Vomiting Is patient prescribed a controlled substance at d/c from ED?: No Referrals: Edinson Rebolledo DO [Primary Care Provider] - 1-2 days
[2022-10-14 07:53] LABS: Basophils % (A) 0 %; Eosinophils # (A) 0.1 k/uL (0-0.7); Eosinophils % (A) 2 %; HCT 45.5 % (34.0-46.0); HGB 14.8 gm/dL (11.4-16.0); Lymphocytes % (A) 42 %; MCHC 32.4 g/dL (31.0-37.0); MCV 92.5 fL (80.0-100.0); Mean Platelet Volume 7.6; Monocytes # (A) 0.3 k/uL (0-1.0); Monocytes % (A) 5 %; Neutrophils # (A) 3.4 k/uL (1.3-7.7); Neutrophils % (A) 49 %; Platelet Count 272 k/uL (150-450); RBC 4.92 m/uL (3.80-5.40); RDW 13.8 % (11.5-15.5); WBC 7.1 k/uL (3.8-10.6)
[2022-10-14 08:04] LABS: ALT 19 U/L (4-34); AST 24 U/L (14-36); African American GFR (CKD) 85 (>60 ml/min/1.73 sqM); Albumin 4.4 g/dL (3.5-5.0); Alkaline Phosphatase 74 U/L (38-126); Anion Gap 6 mmol/L; Blood Urea Nitrogen 19 mg/dL (7-17); Calcium 9.4 mg/dL (8.4-10.2); Carbon Dioxide 32 mmol/L (22-30); Chloride 102 mmol/L (98-107); Glucose 118 mg/dL (74-99); Non-African American GFR(CKD) 73 (>60 ml/min/1.73 sqM); Potassium 4.1 mmol/L (3.5-5.1); Sodium 140 mmol/L (137-145); Total Bilirubin 0.6 mg/dL (0.2-1.3); Total Protein 7.5 g/dL (6.3-8.2)
[2022-10-14] MEDS ORDERED: HYDROmorphone 0.5 MG/0.5 ML SYRINGE IVP STA (08:24)
--- NOTE | 2022-10-14 09:08 | CT ---
EXAMINATION TYPE: CT abdomen pelvis w con DATE OF EXAM: 10/14/2022 COMPARISON: 05/12/2015 HISTORY: LL back pain, order indicates hx aneurysm. Pt not able to confirm CT DLP: 1645.2 mGycm CONTRAST: CT scan of the abdomen and pelvis is performed without Oral Contrast and with IV Contrast, patient in jected with 100 mL of Isovue 300. FINDINGS: LUNG BASES-: No visible nodule. No infiltrate. LIVER/GB: The gallbladder is surgically absent No space occupying hepatic lesion. Biliary tree is of normal caliber. PANCREAS: No inflammation. No distinct mass. SPLEEN: No splenic enlargement. No lesion seen. ADRENALS: No nodule. No thickening. KIDNEYS/BLADDER: No hydronephrosis. No nephrolithiasis. No distinct renal mass. Low midline anteri or abdominal wall hernia measures 3.4 cm and contains a small portion of the urinary bladder. BOWEL: Postoperative changes of Natalia-en-Y gastric bypass with debris noted within the gastric pouch a nd afferent ileal component. No inflammation. Nonvisualization of the appendix. GENITAL ORGANS: No gross abnormality. LYMPH NODES: No greater than 1cm abdominal or pelvic lymph nodes are appreciated. AORTA: No significant abnormality. OSSEOUS STRUCTURES: No significant abnormality is seen. OTHER: No significant additional abnormality is seen. IMPRESSION: 1. Postoperative changes of Natalia-en-Y gastric bypass with debris noted within the gastric pouch and a fferent ileal component. 2.Low midline anterior abdominal wall hernia measures 3.4 cm and contains a small portion of the urin nba bladder.
[2022-10-14 10:05] LABS: Appearance,Urine Clear (Clear); Bilirubin,Urine Negative (Negative); Blood,Urine Negative (Negative); Color,Urine Light Yellow; Glucose,Urine (UA) Negative (Negative); Ketones,Urine Negative (Negative); Leukocyte Esterase,Urine Moderate (Negative); Mucus,Urine Rare /hpf; Nitrite,Urine Negative (Negative); PH, Urine 6.5 (5.0-8.0); Protein,Urine Negative (Negative); Specific Gravity,Urine 1.036 (1.001-1.035); Squamous Epithelial Cell,Urine 4 /hpf (0-4); Urobilinogen,Urine <2.0 mg/dL (<2.0); WBC,Urine 1 /hpf (0-5)
[2022-10-14 12:04] VITALS: BP 136/81; PULSE 54; TEMP 98.2
== END 2022-10-14 12:11 | disposition home or self-care (01) ==
LOC: EC 06:58
DX: M54.50 Low back pain, unspecified (principal); K43.9 Ventral hernia without obstruction or gangrene; I10 Essential (primary) hypertension; I48.91 Unspecified atrial fibrillation; E11.9 Type 2 diabetes mellitus without complications; G47.30 Sleep apnea, unspecified; F32.A Depression, unspecified; Z79.899 Other long term (current) drug therapy; Z88.0 Allergy status to penicillin; Z88.5 Allergy status to narcotic agent; Z88.8 Allergy status to other drugs, medicaments and biological substances
CPT/HCPCS: 36415; 80053; 83605; 85025; 81001; 74177; 99284; 96374; 96375 ×2; 96361; J2405; J1885; J1170; Q9967

== ENCOUNTER → 2023-07-03 | Outpatient (CLI) | payer MEDICARE ==
--- NOTE | 2023-07-03 12:44 | BD ---
EXAMINATION TYPE: Axial Bone Density DATE OF EXAM: 07/03/2023 CLINICAL HISTORY: 72 years old Female. ICD-10 CODE: M85.89 OTHER DISORDER OF BONE DENSITY Height: 63 Weight: 214.7 FRAX RISK QUESTIONS: Alcohol (3 or more units per day): no Family History (Parent hip fracture): no Glucocorticoids (More than 3mos): no History of Fracture in Adulthood: no Secondary Osteoporosis: 1. Type 1 Diabetes: no 2. Hyperthyroidism: no 3. Menopause before 45: no 4. Malnutrition: no 5. Chronic liver disease: no Rheumatoid Arthritis: no Current Tobacco Use: no RISK FACTORS HISTORY OF: Hip Fracture (Right/Left): no Spine Fracture: no History of Wrist Fracture: yes RT Surgery to Spine/Hip(right/left)/Wrist (right/left): no MEDICATIONS: Thyroid Medications: levothyroxine How Long: past month Osteoporosis Medications: no EXAM MEASUREMENTS: Bone mineral densitometry was performed using the [employer] System. Bone mineral density as measured about the Lumbar spine is: ----- L1-L4(G/cm2): 0.920 T Score Values are as follows: ----- L1: -1.8 ----- L2: -2.4 ----- L3: -2.3 ----- L4: -2.3 ----- L1-L4: -2.2 Z Score Values are as follows: ----- L1: -1.2 ----- L2: -1.7 ----- L3: -1.6 ----- L4: -1.7 ----- L1-L4: -1.5 Bone mineral density has: decreased -2.7 % since study of: 11/06/2015 Bone mineral density about the R hip (g/cm2): 0.791 Bone mineral density about the L hip (g/cm2): 0.790 T Score values are as follows: -----R Neck: -2.6 -----L Neck: -1.9 -----R Total: -1.7 -----L Total: -1.7 Z Score values are as follows: -----R Neck: -1.5 -----L Neck: -0.8 -----R Total: -0.8 -----L Total: -0.8 Bone mineral density has: decreased -5.8 % since study of: 11/06/2015 FRAX%s: The graph provided illustrates a 23.2% chance for a major osteoporotic fx and a 6.7% chance f or the hips probability for fx in 10 years time. IMPRESSION: Osteopenia (T Score between -2.5 and -1). There is slightly increased risk of fracture and the patient may be considered for treatment. Re-Screen 2-5 years. NOTE: T-SCORE=SD OF THE YOUNG ADULT MEAN.
--- NOTE | 2023-07-04 08:51 | MM ---
Reason for Exam: Screening (asymptomatic). Last mammogram was performed 4 year(s) and 0 month(s) ago. Patient History: Menarche at age 10. First Full-Term at age 15. Postmenopausal. Breast cancer, age 61. Mastectomy on the Right side. 07/31/2012, Malignant Core Biopsy on the right side. 2012, Chemotherapy. Prior Study Comparison: 01/14/2017 Left Diagnostic Mammogram, [facility]. 05/21/2018 Left Diagnostic Mammogram, [facility]. 07/07/2019 Left Diagnostic Mammogram, [facility]. Tissue Density: Left: The breasts are heterogeneously dense, which may obscure small masses. Findings: Analyzed By CAD. There is no suspicious group of microcalcifications or new suspicious mass within the left breast. Overall Assessment: Benign, BI-RAD 2 Management: Screening Mammogram of the left breast in 1 year. . Patient should continue monthly self-breast exams. A clinical breast exam by your physician is recommended on an annual basis. This exam should not preclude additional follow-up of suspicious palpable abnormalities. Note on Zuri scores and lifetime risk: 1. A Zuri score greater than 3% is considered moderate risk. If this is the case, consider specialist referral to assess eligibility for a risk reducing agent. 2. If overall lifetime risk for the development of breast cancer is 20% or higher, the patient may qualify for future screening with alternating mammogram and breast MRI. Electronically signed and approved by: Bernardo Galdamez M.D. Radiologis
== END | disposition home or self-care (01) ==
LOC: RADMAMWWP 11:39
PROVIDERS: ATTEND Family Medicine
DX: Z12.31 Encounter for screening mammogram for malignant neoplasm of breast (principal); Z13.820 Encounter for screening for osteoporosis; M85.89 Other specified disorders of bone density and structure, multiple sites; M81.0 Age-related osteoporosis without current pathological fracture; Z78.0 Asymptomatic menopausal state
CPT/HCPCS: 77067; 77080

== ENCOUNTER 2024-01-16 16:52 | Emergency (ER) | payer MEDICARE ==
--- NOTE | 2024-01-16 17:28 | ED ---
General Adult HPI - General Source: patient, family Mode of arrival: wheelchair Limitations: no limitations <Johanny Sanchez - Last Filed: 01/16/24 17:26> - General Source: RN notes reviewed, old records reviewed Mode of arrival: wheelchair Limitations: no limitations - History of Present Illness -: hour(s) Location: mouth Radiation: non-radiation Severity scale (1-10): 3 Quality: stabbing Consistency: constant <Fabian Mujica - Last Filed: 01/28/24 17:34> - General Chief complaint: Recheck/Abnormal Lab/Rx Stated complaint: Pain on rt side of face, heart issues Time Seen by Provider: 01/16/24 17:22 - History of Present Illness Initial comments: Quick Note: This is a 73-year-old female who presents to the emergency department for palpitations and right sided facial pain. States that for the last 5 days she has had pain on the right side of her jaw going from the tooth up into her head. States that the pain has since gotten worse. On her way here she also started to develop palpitations and became concerned due to a history of A-fib. Denies any chest pain or shortness of breath. (Johanny Sanchez) This is a 73 female to the ER today. She presents today for evaluation of jaw pain right tooth pain history of dental disease and dental caries. Patient denies any possibility of having pain or chest pain with history of A-fib (Fabian Mujica) - Related Data Home Medications Medication Instructions Recorded Confirmed Fluticasone/Umeclidin/Vilanter 1 puff INHALATION RT-HS 01/23/22 01/23/22 [Trelegy Ellipta 200-62.5-25] amLODIPine [Norvasc] 5 mg PO HS 01/23/22 01/23/22 Previous Rx's Medication Instructions Recorded Apixaban [Eliquis] 5 mg PO BID #60 tab 01/24/22 Amiodarone [Cordarone] 200 mg PO BID #60 tab 01/27/22 Metoprolol Tartrate [Lopressor] 25 mg PO BID #30 tablet 01/27/22 Baclofen 5 mg PO Q8H PRN #15 tablet 10/14/22 Ondansetron Odt [Zofran Odt] 4 mg PO Q8HR PRN #15 tab 10/14/22 Allergies Allergy/AdvReac Type Severity Reaction Status Date / Time codeine Allergy Unknown Verified 01/16/24 17:21 losartan Allergy Dyspnea Verified 01/16/24 17:21 meperidine HCl [From Demerol] Allergy Unknown Verified 01/16/24 17:21 morphine Allergy Unknown Verified 01/16/24 17:21 Penicillins Allergy Rash/Hives/ Verified 01/16/24 17:21 Hallucinati ons Review of Systems ROS Other: All systems not noted in ROS Statement are negative. <Johanny Sanchez - Last Filed: 01/16/24 17:26> ROS Other: All systems not noted in ROS Statement are negative. <Fabian Mujica - Last Filed: 01/28/24 17:34> ROS Statement: Those systems with pertinent positive or pertinent negative responses have been documented in the HPI. 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 History of Any Multi-Drug Resistant Organisms: None Reported Past Surgical History: Bariatric Surgery, Breast Surgery, Cholecystectomy Additional Past Surgical History / Comment(s): rt breast core bx,right mastectomy, tummy tuck, liposuction,hiatal hernia repair,gastric bypass 1998,port removed Past Anesthesia/Blood Transfusion Reactions: Postoperative Nausea & Vomiting (PONV) Past Psychological History: Depression Smoking Status: Never smoker Past Alcohol Use History: None Reported Past Drug Use History: None Reported - Past Family History Father History Unknown: Yes Family Medical History: No Reported History Mother History Unknown: Yes Family Medical History: No Reported History <Johanny Sanchez - Last Filed: 01/16/24 17:26> General Exam Limitations: no limitations <Johanny Sanchez - Last Filed: 01/16/24 17:26> General appearance: alert, in no apparent distress Head exam: Present: atraumatic, normocephalic, normal inspection Eye exam: Present: normal appearance, PERRL, EOMI. Absent: scleral icterus, conjunctival injection, periorbital swelling ENT exam: Present: normal exam, mucous membranes moist Neck exam: Present: normal inspection. Absent: tenderness, meningismus, lymphadenopathy Respiratory exam: Present: normal lung sounds bilaterally. Absent: respiratory distress, wheezes, rales, rhonchi, stridor Cardiovascular Exam: Present: regular rate, normal rhythm, normal heart sounds. Absent: systolic murmur, diastolic murmur, rubs, gallop, clicks GI/Abdominal exam: Present: soft, normal bowel sounds. Absent: distended, tenderness, guarding, rebound, rigid Extremities exam: Present: normal inspection, full ROM, normal capillary refill. Absent: tenderness, pedal edema, joint swelling, calf tenderness Back exam: Present: normal inspection Neurological exam: Present: alert, oriented X3, CN II-XII intact Psychiatric exam: Present: normal affect, normal mood Skin exam: Present: warm, dry, intact, normal color. Absent: rash <Fabian Mujica - Last Filed: 01/28/24 17:34> - General Exam Comments Initial Comments: Visual Physical Exam Vital signs reviewed General: Well-appearing, nontoxic, no acute distress. Head: Normocephalic, atraumatic Eyes: PERRLA, EOMI ENT: Airway patent Chest: Nonlabored breathing Skin: No visual rash, normal skin tone Neuro: Alert and oriented 3 Musculoskeletal: No gross abnormalities (VogleyJohanny) Course <Fabian Mujica - Last Filed: 01/28/24 17:34> Vital Signs 01/16/24 01/16/24 01/16/24 17:16 18:27 19:03 Temperature 98.0 F 97.8 F Pulse Rate 57 L 63 58 L Respiratory 16 18 16 Rate Blood Pressure 158/84 152/103 176/104 O2 Sat by Pulse 95 94 L 94 L Oximetry - Reevaluation(s) Reevaluation #1: 01/16/24 19:20 Medical records reviewed (Fabian Mujica) Reevaluation #2: 01/16/24 19:21 Patient symptoms improved (Fabian Mujica) Reevaluation #3: 01/16/24 19:21 Patient informed of results and questions answered (Fabian Mujica) Reevaluation #4: Was pt. sent in by a medical professional or institution ([facility], FILTRATION OPERATOR, urgent care, hospital, or longterm...) When possible be specific @ -no Did you speak to anyone other than the patient for history (EMS, parent, family, police, friend...)? What history was obtained from this source @ -no Did you review nursing and triage notes (agree or disagree)? Why? @ -agree Are old charts reviewed (outside hosp., previous admission, EMS record, old EKG, old radiological studies, urgent care reports/EKG's, longterm records)? Report findings @ -yes Differential Diagnosis (chest pain, altered mental status, abdominal pain women, abdominal pain men, vaginal bleeding, weakness, fever, dyspnea, syncope, headache, dizziness, GI bleed, back pain, seizure, CVA, palpatations, mental health, musculoskeletal)? @ -prior EKG interpreted by me (3pts min.). @ -no X-rays interpreted by me (1pt min.). @ -no CT interpreted by me (1pt min.). @ -no U/S interpreted by me (1pt. min.). @ -no What testing was considered but not performed or refused? (CT, X-rays, U/S, labs)? Why? @ -none What meds were considered but not given or refused? Why? @ -none Did you discuss the management of the patient with other professionals (professionals i.e. [facility], FILTRATION OPERATOR, lab, RT, psych nurse, social psychologist, tube test technician, teacher, learning officer, case reviewer)? Give summary @ -no Was smoking cessation discussed for >3mins.? @ -no Was critical care preformed (if so, how long)? @ -no Were there social determinants of health that impacted care today? How? (Homelessness, low income, unemployed, alcoholism, drug addiction, transportation, low edu. Level, literacy, decrease access to med. care, long term, rehab)? @ -none Was there de-escalation of care discussed even if they declined (Discuss DNR or withdrawal of care, Hospice)? DNR status @ -no What co-morbidities impacted this encounter? (DM, HTN, Smoking, COPD, CAD, Cancer, CVA, ARF, Chemo, Hep., AIDS, mental health diagnosis, sleep apnea, morbid obesity)? @ -none Was patient admitted / discharged? Hospital course, mention meds given and route, prescriptions, significant lab abnormalities, going to OR and other pertinent info. @ - 73 female to the ER for evaluation of jaw pain right-sided tooth pain upper tooth pain radiating into the nose nasal area. Patient has pain controlled feels better and can be discharged home Discharge Undiagnosed new problem with uncertain prognosis? @ -no Drug Therapy requiring intensive monitoring for toxicity (Heparin, Nitro, Insulin, Cardizem)? @ -no Were any procedures done? @ -no Diagnosis/symptom? @ -Dental pain and caries Acute, or Chronic, or Acute on Chronic? @ -Acute Uncomplicated (without systemic symptoms) or Complicated (systemic symptoms)? @ -Complicated Side effects of treatment? @ -no Exacerbation, Progression, or Severe Exacerbation? @ -exacerbation Poses a threat to life or bodily function? How? (Chest pain, USA, ID, pneumonia, PE, COPD, DKA, ARF, appy, cholecystitis, CVA, Diverticulitis, Homicidal, Suicidal, threat to staff... and all critical care pts) @ -yes extremes of age (Fabian Mujica) EKG Findings - EKG Comments: EKG Findings:: EKG is sinus 59 MI 184 QRS 117 QTc 460 - EKG Results: EKG: interpreted by ERMD <Fabian Mujica - Last Filed: 01/28/24 17:34> Medical Decision Making <Johanny Sanhcez - Last Filed: 01/16/24 17:26> <Fabian Mujica - Last Filed: 01/28/24 17:34> - Medical Decision Making I performed the QuickNote portion of this chart. Signed Johanny Sanchez PA-C. (Johanny Sanchez) 73 female to the ER for evaluation of jaw pain right-sided tooth pain upper tooth pain radiating into the nose nasal area. Patient has pain controlled feels better and can be discharged home (Fabian Mujica) Disposition <Johanny Sanchez - Last Filed: 01/16/24 17:26> Is patient prescribed a controlled substance at d/c from ED?: No Time of Disposition: 17:40 <Fabian Mujica - Last Filed: 01/28/24 17:34> Clinical Impression: Pain, dental, Dental abscess Disposition: HOME SELF-CARE Condition: Good Instructions (If sedation given, give patient instructions): Dental Abscess (ED) Referrals: Edinson Rebolledo DO [Primary Care Provider] - 1-2 days
[2024-01-16 18:29] VITALS: TEMP 97.8
[2024-01-16] MEDS: CLINDAMYCIN 150 MG CAP PO STA (18:34)
[2024-01-16] MEDS: traMADol 50 MG TAB PO STA (18:35)
[2024-01-16] MEDS: HYDROmorphone 1 MG/ML 1 ML SYRINGE IM STA (18:37)
[2024-01-16] MEDS: IBUPROFEN 600 MG STARTER PACK 4 TAB BTL PO STA (18:40)
[2024-01-16] MEDS: traMADol 50 MG STARTER PACK 3 TAB BTL PO STA (18:40)
[2024-01-16 19:06] VITALS: BP 176/104; PULSE 58; RESP 16
[2024-01-16] MEDS: ONDANSETRON 4 MG TAB PO STA (19:09)
== END 2024-01-16 19:03 | disposition home or self-care (01) ==
LOC: EC 16:52
CPT/HCPCS: 93005; 96372; 99285

== ENCOUNTER 2024-02-04 16:34 | Emergency (ER) | payer MEDICARE ==
--- NOTE | 2024-02-04 16:44 | ED ---
Lower Extremity Injury HPI - General Chief Complaint: Extremity Injury, Lower Stated Complaint: R foot injury Time Seen by Provider: 02/04/24 16:44 Source: patient, RN notes reviewed Mode of arrival: wheelchair Limitations: no limitations - History of Present Illness Initial Comments: This is a 73-year-old female who presents to the emergency department chief complaint of right foot pain. States that she was moving furniture this morning when she accidentally dropped a speaker onto the top of her right foot. She denies other injuries at this time. States that pain is mostly over the proximal forefoot and is exacerbated with ambulation. denies parasthesias. She took a Motrin 800 a few hours ago which has aided in some relief. Denies previous surgeries of the right foot. no other acute complaints at this time. - Related Data Home Medications Medication Instructions Recorded Confirmed Fluticasone/Umeclidin/Vilanter 1 puff INHALATION RT-HS 01/23/22 01/23/22 [Trelegy Ellipta 200-62.5-25] amLODIPine [Norvasc] 5 mg PO HS 01/23/22 01/23/22 Previous Rx's Medication Instructions Recorded Apixaban [Eliquis] 5 mg PO BID #60 tab 01/24/22 Amiodarone [Cordarone] 200 mg PO BID #60 tab 01/27/22 Metoprolol Tartrate [Lopressor] 25 mg PO BID #30 tablet 01/27/22 Baclofen 5 mg PO Q8H PRN #15 tablet 10/14/22 Ondansetron Odt [Zofran Odt] 4 mg PO Q8HR PRN #15 tab 10/14/22 Allergies Allergy/AdvReac Type Severity Reaction Status Date / Time codeine Allergy Unknown Verified 02/04/24 16:42 losartan Allergy Dyspnea Verified 02/04/24 16:42 meperidine HCl [From Demerol] Allergy Unknown Verified 02/04/24 16:42 morphine Allergy Unknown Verified 02/04/24 16:42 Penicillins Allergy Rash/Hives/ Verified 02/04/24 16:42 Hallucinati ons Review of Systems ROS Statement: Those systems with pertinent positive or pertinent negative responses have been documented in the HPI. ROS Other: All systems not noted in ROS Statement are negative. 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 History of Any Multi-Drug Resistant Organisms: None Reported Past Surgical History: Bariatric Surgery, Breast Surgery, Cholecystectomy Additional Past Surgical History / Comment(s): rt breast core bx,right mastectomy, tummy tuck, liposuction,hiatal hernia repair,gastric bypass 1998,port removed Past Anesthesia/Blood Transfusion Reactions: Postoperative Nausea & Vomiting (PONV) Past Psychological History: Depression Smoking Status: Never smoker Past Alcohol Use History: None Reported Past Drug Use History: None Reported - Past Family History Father History Unknown: Yes Family Medical History: No Reported History Mother History Unknown: Yes Family Medical History: No Reported History General Exam Limitations: no limitations General appearance: alert, in no apparent distress ENT exam: Present: normal exam, mucous membranes moist Neck exam: Present: normal inspection. Absent: tenderness, meningismus, lymphadenopathy Respiratory exam: Present: normal lung sounds bilaterally. Absent: respiratory distress, wheezes, rales, rhonchi, stridor Cardiovascular Exam: Present: regular rate, normal rhythm, normal heart sounds. Absent: systolic murmur, diastolic murmur, rubs, gallop, clicks GI/Abdominal exam: Present: soft, normal bowel sounds. Absent: distended, tenderness, guarding, rebound, rigid Right Foot/Toe exam: Present: tenderness, swelling, ecchymosis (proximal forefoot) Neurovascular tendon exam: Absent: no vascular compromise, pulse deficit Back exam: Present: normal inspection Skin exam: Present: warm, dry, intact, normal color. Absent: rash Course Vital Signs 02/04/24 02/04/24 16:39 18:07 Temperature 97.9 F 797.5 F H Pulse Rate 62 66 Respiratory 16 18 Rate Blood Pressure 147/94 161/94 O2 Sat by Pulse 95 97 Oximetry Procedures - Orthopedic Splinting/Casting Injury #1 Side: right Lower Extremity Injury Location: foot Lower Extremity Immobilizer: Chang wrap Medical Decision Making - Medical Decision Making Was pt. sent in by a medical professional or institution (, [facility], FLEET DRIVER, urgent care, hospital, or long term...) When possible be specific @ -No Did you speak to anyone other than the patient for history (EMS, parent, family, police, friend...)? What history was obtained from this source @ -No Did you review nursing and triage notes (agree or disagree)? Why? @ -I reviewed and agree with nursing and triage notes Were old charts reviewed (outside hosp., previous admission, EMS record, old EKG, old radiological studies, urgent care reports/EKG's, long term records)? Report findings @ -No old charts were reviewed Differential Diagnosis (chest pain, altered mental status, abdominal pain women, abdominal pain men, vaginal bleeding, weakness, fever, dyspnea, syncope, headache, dizziness, GI bleed, back pain, seizure, CVA, palpatations, mental health, musculoskeletal)? @ -Differential Musculoskeletal Muscular strain, contusion, ligament sprain, fracture, arthritis, septic arthritis, bursitis, cellulitis, muscle spasm, nerve compression, DVT, arterial occlusion, herpes zoster, electrolyte abnormality, tumor.... This is not meant to be in all inclusive list EKG interpreted by me (3pts min.). @ -None X-rays interpreted by me (1pt min.). @ -X-ray of the right foot no acute evidence of fracture or dislocation. CT interpreted by me (1pt min.). @ -None done U/S interpreted by me (1pt. min.). @ -None done What testing was considered but not performed or refused? (CT, X-rays, U/S, labs)? Why? @ -None What meds were considered but not given or refused? Why? @ -None Did you discuss the management of the patient with other professionals (professionals i.e. [facility], FLEET DRIVER, lab, RT, psych nurse, social and political studies professor, fish technologist, teacher, school resource officer, porter sample case)? Give summary @ -No Was smoking cessation discussed for >3mins.? @ -No Was critical care preformed (if so, how long)? @ -No Were there social determinants of health that impacted care today? How? (Homelessness, low income, unemployed, alcoholism, drug addiction, transportation, low edu. Level, literacy, decrease access to med. care, halfway, rehab)? @ -No Was there de-escalation of care discussed even if they declined (Discuss DNR or withdrawal of care, Hospice)? DNR status @ -No What co-morbidities impacted this encounter? (DM, HTN, Smoking, COPD, CAD, Cancer, CVA, ARF, Chemo, Hep., AIDS, mental health diagnosis, sleep apnea, morbid obesity)? @ -None Was patient admitted / discharged? Hospital course, mention meds given and route, prescriptions, significant lab abnormalities, going to OR and other pertinent info. @ -discharged. 73 year old female with a right foot injury. On examination patient noted to have edema and ecchymosis of the proximal right forefoot that is tender to palpation. Additionally she has a approximately 3 cm laceration on the top of her foot as well that is not actively bleeding. no ankle pain or tenderness. patient is offered pain medication but she has declined at this time. patient will be evaluated via xr for further evaluation. X-rays negative for acute process. Patient was placed in a Chang wrap and recommended continue supportive treatment at home yesterday scheduled for, ice, elevate and use of Tylenol Motrin. discussed with Dr. Ho Undiagnosed new problem with uncertain prognosis? @ -No Drug Therapy requiring intensive monitoring for toxicity (Heparin, Nitro, Insulin, Cardizem)? @ -No Were any procedures done? @ -No Diagnosis/symptom? @ -foot sprain, foot ecchymosis, foot trauma Acute, or Chronic, or Acute on Chronic? @ -acute Uncomplicated (without systemic symptoms) or Complicated (systemic symptoms)? @ -uncomplicated Side effects of treatment? @ -No Exacerbation, Progression, or Severe Exacerbation? @ -No Poses a threat to life or bodily function? How? (Chest pain, USA, MS, pneumonia, PE, COPD, DKA, ARF, appy, cholecystitis, CVA, Diverticulitis, Homicidal, Suicidal, threat to staff... and all critical care pts) @ -No Disposition Clinical Impression: Right foot pain, Traumatic ecchymosis of right foot Disposition: HOME SELF-CARE Condition: Good Instructions (If sedation given, give patient instructions): Foot Sprain (ED) Additional Instructions: Return to emergency department for any new or worsening symptoms. Continue Tylenol Motrin at home. Recommend you continue to rest, ice, elevate as well. Is patient prescribed a controlled substance at d/c from ED?: No Referrals: Edinson Rebolledo DO [Primary Care Provider] - 1-2 days Time of Disposition: 17:43
--- NOTE | 2024-02-04 17:17 | XR ---
EXAMINATION TYPE: XR foot complete RT DATE OF EXAM: 02/04/2024 CLINICAL HISTORY: pain TECHNIQUE: Frontal, lateral and oblique images of the right foot are obtained. COMPARISON: None. FINDINGS: There is no acute fracture/dislocation evident. The joint spaces appear within normal jackman its. The overlying soft tissue appears unremarkable. IMPRESSION: There is no acute fracture or dislocation. ICD 10 NO FRACTURE, INITIAL EVALUATION [facility], , 02/04/2024 5:15 PM
[2024-02-04 18:09] VITALS: BP 161/94; PULSE 66; RESP 18; TEMP 797.5
== END 2024-02-04 18:09 | disposition home or self-care (01) ==
LOC: EC 16:34
CPT/HCPCS: 99283

== ENCOUNTER 2024-03-07 18:25 | Emergency (ER) | payer MEDICARE ==
[2024-03-07 18:40] VITALS: TEMP 98.7
--- NOTE | 2024-03-07 19:21 | ED ---
Headache HPI - General Chief Complaint: Headache Stated Complaint: Nausea fever chest tightness Time Seen by Provider: 03/07/24 19:19 Source: patient, RN notes reviewed Mode of arrival: wheelchair Limitations: no limitations - History of Present Illness Initial Comments: 73-year-old female presenting to the ER with chief complaint of headache x 2 days with associated sinus congestion, cough, and nausea. Patient states was ill with similar symptoms last week. Denies head injury or trauma. Denies chest pain, shortness of breath. - Related Data Home Medications Medication Instructions Recorded Confirmed Fluticasone/Umeclidin/Vilanter 1 puff INHALATION RT-HS 01/23/22 01/23/22 [Trelegy Ellipta 200-62.5-25] amLODIPine [Norvasc] 5 mg PO HS 01/23/22 01/23/22 Previous Rx's Medication Instructions Recorded Apixaban [Eliquis] 5 mg PO BID #60 tab 01/24/22 Amiodarone [Cordarone] 200 mg PO BID #60 tab 01/27/22 Metoprolol Tartrate [Lopressor] 25 mg PO BID #30 tablet 01/27/22 Baclofen 5 mg PO Q8H PRN #15 tablet 10/14/22 Ondansetron Odt [Zofran Odt] 4 mg PO Q8HR PRN #15 tab 10/14/22 Allergies Allergy/AdvReac Type Severity Reaction Status Date / Time codeine Allergy Unknown Verified 02/04/24 16:42 losartan Allergy Dyspnea Verified 02/04/24 16:42 meperidine HCl [From Demerol] Allergy Unknown Verified 02/04/24 16:42 morphine Allergy Unknown Verified 02/04/24 16:42 Penicillins Allergy Rash/Hives/ Verified 02/04/24 16:42 Hallucinati ons Review of Systems ROS Statement: Those systems with pertinent positive or pertinent negative responses have been documented in the HPI. ROS Other: All systems not noted in ROS Statement are negative. 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 History of Any Multi-Drug Resistant Organisms: None Reported Past Surgical History: Bariatric Surgery, Breast Surgery, Cholecystectomy Additional Past Surgical History / Comment(s): rt breast core bx,right mastectomy, tummy tuck, liposuction,hiatal hernia repair,gastric bypass 1998,port removed Past Anesthesia/Blood Transfusion Reactions: Postoperative Nausea & Vomiting (PONV) Past Psychological History: Depression Smoking Status: Never smoker Past Alcohol Use History: None Reported Past Drug Use History: None Reported - Past Family History Father History Unknown: Yes Family Medical History: No Reported History Mother History Unknown: Yes Family Medical History: No Reported History General Exam Limitations: no limitations General appearance: alert, in no apparent distress Head exam: Present: atraumatic, normocephalic, normal inspection Eye exam: Present: normal appearance, PERRL, EOMI. Absent: scleral icterus, conjunctival injection, periorbital swelling ENT exam: Present: normal exam, mucous membranes moist Neck exam: Present: normal inspection. Absent: tenderness, meningismus, lymphadenopathy Respiratory exam: Present: normal lung sounds bilaterally. Absent: respiratory distress, wheezes, rales, rhonchi, stridor Cardiovascular Exam: Present: regular rate, normal rhythm, normal heart sounds. Absent: systolic murmur, diastolic murmur, rubs, gallop, clicks Neurological exam: Present: alert, oriented X3, CN II-XII intact Psychiatric exam: Present: normal affect, normal mood Skin exam: Present: warm, dry, intact, normal color. Absent: rash Course Vital Signs 03/07/24 03/07/24 03/07/24 18:38 18:49 21:53 Temperature 98.7 F Pulse Rate 83 70 Respiratory 18 18 16 Rate Blood Pressure 132/84 129/73 O2 Sat by Pulse 94 L 93 L Oximetry Medical Decision Making - Medical Decision Making Was pt. sent in by a medical professional or institution (, PA, [employer], urgent care, hospital, or jail...) When possible be specific @ -No Did you speak to anyone other than the patient for history (EMS, parent, family, police, friend...)? What history was obtained from this source @ -No Did you review nursing and triage notes (agree or disagree)? Why? @ -I reviewed and agree with nursing and triage notes Were old charts reviewed (outside hosp., previous admission, EMS record, old EKG, old radiological studies, urgent care reports/EKG's, jail records)? Report findings @ -No old charts were reviewed Differential Diagnosis (chest pain, altered mental status, abdominal pain women, abdominal pain men, vaginal bleeding, weakness, fever, dyspnea, syncope, headache, dizziness, GI bleed, back pain, seizure, CVA, palpatations, mental health, musculoskeletal)? @ -Differential Headache: COVID-19, migraine, tension, cluster, carbon monoxide, central venous thrombosis, pension karma temporal arteritis, acute closure glaucoma, intercranial hemorrhage, mastoiditis, sinusitis, head injury, this is not meant to be an all-inclusive list. EKG interpreted by me (3pts min.). @ -None X-rays interpreted by me (1pt min.). @ -None done CT interpreted by me (1pt min.). @ -CT brain reveals no acute process U/S interpreted by me (1pt. min.). @ -None done What testing was considered but not performed or refused? (CT, X-rays, U/S, labs)? Why? @ -None What meds were considered but not given or refused? Why? @ -None Did you discuss the management of the patient with other professionals (professionals i.e. , PA, [employer], lab, RT, psych nurse, director social, bit tripoler, teacher, youth officer, embedded case manager)? Give summary @ -No Was smoking cessation discussed for >3mins.? @ -No Was critical care preformed (if so, how long)? @ -No Were there social determinants of health that impacted care today? How? (Homelessness, low income, unemployed, alcoholism, drug addiction, transportation, low edu. Level, literacy, decrease access to med. care, shelter, rehab)? @ -No Was there de-escalation of care discussed even if they declined (Discuss DNR or withdrawal of care, Hospice)? DNR status @ -No What co-morbidities impacted this encounter? (DM, HTN, Smoking, COPD, CAD, Cancer, CVA, ARF, Chemo, Hep., AIDS, mental health diagnosis, sleep apnea, morbid obesity)? @ -None Was patient admitted / discharged? Hospital course, mention meds given and route, prescriptions, significant lab abnormalities, going to OR and other pertinent info. @ -Discharge. This is a 73-year-old female presenting with headache x 2 days with sinus congestion, nausea, and cough. Vital signs within acceptable limits. Patient was provided with IV fluids, antiemetics, and analgesics. COVID- positive. CT brain reveals no acute process. Discussed diagnosis of COVID-19. Upon reevaluation, patient reports improvement of symptoms. Supportive care discussed as well as return precautions. Case was discussed with the ED attending Dr. Ho. Patient is discharged in stable condition. Undiagnosed new problem with uncertain prognosis? @ -No Drug Therapy requiring intensive monitoring for toxicity (Heparin, Nitro, Insulin, Cardizem)? @ -No Were any procedures done? @ -No Diagnosis/symptom? @ -COVID-19 Acute, or Chronic, or Acute on Chronic? @ -Acute Uncomplicated (without systemic symptoms) or Complicated (systemic symptoms)? @ -Uncomplicated Side effects of treatment? @ -No Exacerbation, Progression, or Severe Exacerbation? @ -No Poses a threat to life or bodily function? How? (Chest pain, USA, DC, pneumonia, PE, COPD, DKA, ARF, appy, cholecystitis, CVA, Diverticulitis, Homicidal, Suicidal, threat to staff... and all critical care pts) @ -Not at this time - Lab Data Lab Results 03/07/24 Range/Units 20:04 Influenza Type A (PCR) Not Detected (Not Detectd) Influenza Type B (PCR) Not Detected (Not Detectd) RSV (PCR) Not Detected (Not Detectd) SARS-CoV-2 (PCR) Detected A (Not Detectd) Disposition Clinical Impression: COVID-19 Disposition: HOME SELF-CARE Condition: Stable Instructions (If sedation given, give patient instructions): How to Recover from COVID-19 at Home (ED) Additional Instructions: Please return to the Emergency Department if symptoms worsen or any other concerns. Is patient prescribed a controlled substance at d/c from ED?: No Referrals: Edinson Rebolledo DO [Primary Care Provider] - 1-2 days Time of Disposition: 21:45
[2024-03-07] MEDS: SODIUM CHLORIDE 0.9% 1,000 ML IV STA (20:03)
[2024-03-07] MEDS: METOCLOPRAMIDE 5 MG/ML 2 ML VIAL IVP STA (20:11)
[2024-03-07] MEDS: ACETAMINOPHEN IV (For NPO) 1,000 MG in EMPTY BAG 1 BAG IVPB STA (20:30)
--- NOTE | 2024-03-07 21:22 | CT ---
EXAMINATION TYPE: CT brain wo con DATE OF EXAM: 03/07/2024 9:13 PM COMPARISON: 10/30/2023. CLINICAL INDICATION: Female, 73 years old with history of headache x 2 days, Headache x 2 days, COVID positive. TECHNIQUE: Brain: Axial CT images of the brain were obtained with coronal and sagittal reformats created and rev iewed. Contrast used: None. Oral contrast used: None. CT DLP: 1129.4 mGycm, Automated exposure control for dose reduction was used. FINDINGS: Brain: Extra-axial spaces: No abnormal extra-axial fluid collections. Ventricular system: Dilatation in proportion to cerebral atrophy. Cerebral parenchyma: Cerebral atrophy. No acute intraparenchymal hemorrhage or mass effect. The arce -white junction is well differentiated. Scattered hypoattenuating areas are seen within the white mat ter. Cerebellum: Unremarkable. Mass effect: No evidence of midline shift. Intracranial vasculature: unremarkable Soft tissues: Normal. Calvarium/osseous structures: No depressed skull fracture. Paranasal sinuses and mastoid air cells: Mild scattered paranasal sinus disease. Visualized orbits: Orbital contents are intact. IMPRESSION: 1. No acute intracranial process. 2. Nonspecific white matter changes, likely secondary to chronic small vessel ischemic disease. [facility], , 03/07/2024 9:19 PM
[2024-03-07] MEDS: KETOROLAC 15 MG/ML 1 ML VIAL IVP STA (21:38)
[2024-03-07 22:03] VITALS: BP 129/73; PULSE 70; RESP 16
== END 2024-03-07 21:53 | disposition home or self-care (01) ==
LOC: EC 18:25
DX: U07.1 COVID-19 (principal); Z88.0 Allergy status to penicillin; Z88.5 Allergy status to narcotic agent; Z88.8 Allergy status to other drugs, medicaments and biological substances
CPT/HCPCS: 87636; 70450; 99284; 96365; 96375 ×2; 96361; J2765; J0131; J1885

== ENCOUNTER 2024-08-16 00:24 | Observation (INO) | payer MEDICARE ==
--- NOTE | 2024-08-16 01:43 | ED ---
Chest Pain HPI - General Source: patient Mode of arrival: wheelchair Limitations: no limitations <Gail Chopra - Last Filed: 08/16/24 20:46> <Latisha Ho - Last Filed: 08/17/24 00:49> - General Chief Complaint: Chest Pain Stated Complaint: Chest Pain Time Seen by Provider: 08/16/24 00:56 - History of Present Illness Initial Comments: 73 year old female who presents that right sideded chest pain with radiation to the right shoulder. Patient states onset of chest pain occurred last evening at around 6 PM and rates it an 8/10. She was laying in bed and felt a pressure- like chest pain located midsternum and describes as a constant shooting/sharp pain radiates to the right shoulder. Denies any exacerbating or alleviating factors. Admits to nausea but denies any shortness of breath vomiting, diaphoresis. Patient states she has a history of vertigo and has been feeling dizzy since Friday. Of note she says she has been dealing with this for the past 30 years. Denies fever, chills, diarrhea, urinary complaints. (ChopraGail) - Related Data Home Medications Medication Instructions Recorded Confirmed amLODIPine [Norvasc] 5 mg PO HS 01/23/22 08/16/24 Previous Rx's Medication Instructions Recorded Apixaban [Eliquis] 5 mg PO BID #60 tab 08/16/24 lisinopriL [Zestril] 5 mg PO DAILY #30 tab 08/16/24 Allergies Allergy/AdvReac Type Severity Reaction Status Date / Time codeine Allergy Unknown Verified 08/16/24 08:22 losartan Allergy Dyspnea Verified 08/16/24 08:22 meperidine HCl [From Demerol] Allergy Unknown Verified 08/16/24 08:22 morphine Allergy Unknown Verified 08/16/24 08:22 Penicillins Allergy Rash/Hives/ Verified 08/16/24 08:22 Hallucinati ons Review of Systems ROS Other: All systems not noted in ROS Statement are negative. Constitutional: Denies: fever, chills Respiratory: Denies: cough, dyspnea, wheezes Cardiovascular: Reports: chest pain. Denies: palpitations Gastrointestinal: Reports: nausea. Denies: abdominal pain, vomiting, diarrhea Genitourinary: Denies: urgency, dysuria Musculoskeletal: Denies: back pain Skin: Denies: rash, lesions Neurological: Denies: headache, weakness <Gail Chopra - Last Filed: 08/16/24 20:46> ROS Other: All systems not noted in ROS Statement are negative. <Latisha Ho - Last Filed: 08/17/24 00:49> ROS Statement: Those systems with pertinent positive or pertinent negative responses have been documented in the HPI. 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 History of Any Multi-Drug Resistant Organisms: None Reported Past Surgical History: Bariatric Surgery, Breast Surgery, Cholecystectomy Additional Past Surgical History / Comment(s): rt breast core bx,right mastectomy, tummy tuck, liposuction,hiatal hernia repair,gastric bypass 1998,port removed Past Anesthesia/Blood Transfusion Reactions: Postoperative Nausea & Vomiting (PONV) Past Psychological History: Depression Smoking Status: Never smoker Past Alcohol Use History: None Reported Past Drug Use History: None Reported - Past Family History Father History Unknown: Yes Family Medical History: No Reported History Mother History Unknown: Yes Family Medical History: No Reported History <Gail Chopra - Last Filed: 08/16/24 20:46> General Exam Limitations: no limitations General appearance: alert, in no apparent distress Respiratory exam: Present: normal lung sounds bilaterally. Absent: respiratory distress, wheezes Cardiovascular Exam: Present: regular rate, normal rhythm GI/Abdominal exam: Present: soft. Absent: distended, tenderness Back exam: Absent: tenderness Neurological exam: Present: alert, oriented X3 Psychiatric exam: Present: normal affect, normal mood Skin exam: Present: warm, dry, intact <Gail Chopra - Last Filed: 08/16/24 20:46> Course Vital Signs 08/16/24 08/16/24 08/16/24 00:37 06:05 07:38 Temperature 97.9 F 97.3 F L 97.8 F Pulse Rate 64 66 69 Respiratory 18 16 18 Rate Blood Pressure 153/88 151/93 157/96 O2 Sat by Pulse 96 97 98 Oximetry 08/16/24 08/16/24 08/16/24 10:03 14:54 16:48 Temperature 97.8 F 97.8 F Pulse Rate 61 68 66 Respiratory 18 18 20 Rate Blood Pressure 144/80 127/74 148/96 O2 Sat by Pulse 95 95 97 Oximetry Chest Pain MDM - Wells Criteria Clinical Symptoms of DVT: (0) No No Alternative Diagnosis: (0) No Immobilization of Surgery in Previous 4 Weeks: (0) No Previous DVT/PE: (0) No Hemoptysis: (0) No Malignancy: (0) No - PERC Rule Heart Rate < 100: (1) Yes No Prior History pf DVT/PE: (0) No No Recent Trauma or Surgery: (0) No Hemoptysis: (0) No No Exogenous Estrogen: (0) No No Clinical Signs Suggesting DVT: (0) No - DOMINIQUE Score Age > 65: (1) Yes 3 or more CAD Risk Factors: (1) Yes Known CAD with more than 50% Stenosis: (0) No Aspirin use within the Past 7 Days: (0) No Elevated Cardiac Markers: (0) No ST Deviation Greater than 0.5mm: (0) No <Gail Chopra - Last Filed: 08/16/24 20:46> <Latisha Ho - Last Filed: 08/17/24 00:49> - MDM Was pt. sent in by a medical professional or institution (, PA, [employer], urgent care, hospital, or retirement...) When possible be specific @ -No Did you speak to anyone other than the patient for history (EMS, parent, family, police, friend...)? What history was obtained from this source @ -No Did you review nursing and triage notes (agree or disagree)? Why? @ -I reviewed and agree with nursing and triage notes Were old charts reviewed (outside hosp., previous admission, EMS record, old EKG, old radiological studies, urgent care reports/EKG's, retirement records)? Report findings @ -No old charts were reviewed Differential Diagnosis? @ -Differential Chest Pain: Stable Angina, Unstable Angina, STEMI, NSTEMI Aortic Dissection, Pneumothorax, Musculoskeletal, Esophageal Spasm GERD, Cholecystitis, Pancreatitis, Zoster, this is not meant to be an all-inclusive list. EKG interpreted by me (3pts min.). @ -EKG showed sinus rhythm with ventricular rate 62 bpm, QTc of 426 ms. Nonspecific T wave abnormality noted. X-rays interpreted by me (1pt min.). @ -Chest X-ray was unremarkable. CT interpreted by me (1pt min.). @ -None done U/S interpreted by me (1pt. min.). @ -None done What testing was considered but not performed or refused? (CT, X-rays, U/S, labs)? Why? @ -None What meds were considered but not given or refused? Why? @ -None Did you discuss the management of the patient with other professionals (professionals i.e. , PA, WOOL SORTER, lab, RT, psych nurse, social welfare administrator, marketing communications assistant, teacher, corporate officer, counter caser)? Give summary @ -No Was smoking cessation discussed for >3mins.? @ -No Was critical care preformed (if so, how long)? @ -No Were there social determinants of health that impacted care today? How? (Homelessness, low income, unemployed, alcoholism, drug addiction, transportation, low edu. Level, literacy, decrease access to med. care, [place] [facility], rehab)? @ -No Was there de-escalation of care discussed even if they declined (Discuss DNR or withdrawal of care, Hospice)? DNR status @ -No What co-morbidities impacted this encounter? (DM, HTN, Smoking, COPD, CAD, Cancer, CVA, ARF, Chemo, Hep., AIDS, mental health diagnosis, sleep apnea, morbid obesity)? @ -None Was patient admitted / discharged? Hospital course, mention meds given and route, prescriptions, significant lab abnormalities, going to OR and other pertinent info. @ -Patient was admitted to hospital. Cardiology was consulted Undiagnosed new problem with uncertain prognosis? @ -No Drug Therapy requiring intensive monitoring for toxicity (Heparin, Nitro, Insulin, Cardizem)? @ -No Were any procedures done? @ -No Diagnosis/symptom? @ -Atypical chest pain Acute, or Chronic, or Acute on Chronic? @ -Acute Uncomplicated (without systemic symptoms) or Complicated (systemic symptoms)? @ -Default Side effects of treatment? @ -No Exacerbation, Progression, or Severe Exacerbation? @ -No Poses a threat to life or bodily function? How? (Chest pain, USA, DC, pneumonia, PE, COPD, DKA, ARF, appy, cholecystitis, CVA, Diverticulitis, Homicidal, Suicidal, threat to staff... and all critical care pts) @ -No (Gail Chopra) I personally saw the patient and performed the critical portion of the service. I discussed the patient care with the resident physician. I directed management, care planning and final disposition of the patient. This includes, but not limited to, review of all lab work, radiological studies, EKG's, consultations, vital signs, and nursing notes. EKG interpreted by me (3pts min.) @ Personally reviewed EKG, sinus rhythm, rate 62 bpm intervals within acceptable limits, normal axis, no significant ST elevations or depressions, no arrhythmia X-Rays interpreted by me (1 pt min.) @I personally reviewed chest x-ray see no evidence of cardiomegaly, consolidations or pneumothorax I agree with radiologist interpretation CT interpreted by me ( 1pt min.) @ [none] U/S interpreted by me (1 pt min.) @ [none] Critical care time of [0] minutes excluding separately billable procedures was spent in conjunction with critical care activities provided by the Resident and Attending simultaneously. I was present during [no procedures] for all critical portions of the procedure and as immediately available to furnish service during the entire procedure. (Latisha Ho) Disposition Is patient prescribed a controlled substance at d/c from ED?: No <Gail Chopra - Last Filed: 08/16/24 20:46> <Latisha Ho - Last Filed: 08/17/24 00:49> Clinical Impression: Chest pain Disposition: ADMITTED IP TO THIS HOSP Condition: Fair
[2024-08-16] MEDS: SODIUM CHLORIDE 0.9% 1,000 ML IV STA (02:28)
[2024-08-16 02:29] LABS: Basophils # (A) 0.02 10*3/uL (0.00-0.10); Basophils % (A) 0.3 %; Eosinophils # (A) 0.13 10*3/uL (0.04-0.35); Eosinophils % (A) 2.1 %; HGB 13.8 g/dL (12.0-15.0); Lymphocytes # (A) 2.65 10*3/uL (0.90-5.00); Lymphocytes % (A) 42.7 %; MCH 30.1 pg (27.0-32.0); MCHC 32.9 g/dL (32.0-37.0); MCV 91.7 fL (80.0-97.0); Mean Platelet Volume 9.6 fL (9.5-12.2); Monocytes # (A) 0.47 10*3/uL (0.20-1.00); Monocytes % (A) 7.6 %; Neutrophils # (A) 2.93 10*3/uL (1.80-7.70); Neutrophils % (A) 47.1 %; Platelet Count 247 10*3/uL (140-440); RBC 4.58 10*6/uL (4.10-5.20); RDW 13.5 % (11.5-14.5); WBC 6.21 10*3/uL (4.50-10.00)
[2024-08-16] MEDS: ASPIRIN 81 MG PO STA (02:29)
[2024-08-16 02:52] LABS: Partial Thromboplastin Time 24.9 sec (22.0-30.0)
[2024-08-16 02:53] LABS: ALT 17 U/L (4-34); AST 24 U/L (14-36); African American GFR (CKD) >90 (>60 ml/min/1.73 sqM); Albumin 3.9 g/dL (3.5-5.0); Alkaline Phosphatase 70 U/L (38-126); Amylase 37 U/L (30-110); Anion Gap 7 mmol/L; Blood Urea Nitrogen 16 mg/dL (7-17); Calcium 9.1 mg/dL (8.4-10.2); Carbon Dioxide 27 mmol/L (22-30); Chloride 103 mmol/L (98-107); Glucose 115 mg/dL (74-99); Non-African American GFR(CKD) 89 (>60 ml/min/1.73 sqM); Potassium 4.1 mmol/L (3.5-5.1); Sodium 137 mmol/L (137-145); Total Bilirubin 0.5 mg/dL (0.2-1.3); Total Protein 6.9 g/dL (6.3-8.2)
[2024-08-16 03:01] LABS: NT-Pro-B-Type Natriuretic Pept 142 pg/mL
[2024-08-16] MEDS: MECLIZINE 12.5 MG TAB PO STA (03:15)
[2024-08-16] MEDS: NITROGLYCERIN SL TABS 0.4 MG TAB SUBLINGUAL STA (03:16)
--- NOTE | 2024-08-16 03:55 | XR ---
EXAM: XR Chest, 2 Views CLINICAL HISTORY: ITS.REASON XR Reason: Chest Pain TECHNIQUE: Frontal and lateral views of the chest. COMPARISON: No relevant prior studies available. FINDINGS: Lungs: Unremarkable. No consolidation. Pleural space: Unremarkable. No pneumothorax. Heart: Cardiomegaly. Mediastinum: Unremarkable. Bones/joints: Unremarkable. IMPRESSION: No acute findings in the chest.
[2024-08-16] MEDS: ACETAMINOPHEN TAB 500 MG TAB PO STA (04:57)
[2024-08-16] MEDS ORDERED: NALOXONE 0.4 MG/ML 1 ML VIAL IV PRN (06:53)
[2024-08-16 07:41] VITALS: TEMP 97.8
[2024-08-16] MEDS ORDERED: MECLIZINE 25 MG TAB PO PRN (08:51)
[2024-08-16] MEDS ORDERED: DOBUTamine DRIP for NUC MED 500 MG in DEXTROSE/WATER 1 250ML.BAG IV PRN (09:28)
[2024-08-16] MEDS: ENOXAPARIN 40 MG/0.4 ML SYRINGE SQ SCH (09:59)
[2024-08-16] MEDS: APIXABAN 5 MG TAB PO SCH (10:00)
[2024-08-16] MEDS: lisinopriL 5 MG TAB PO SCH (10:05)
[2024-08-16] MEDS: ASPIRIN 81 MG PO SCH (10:06)
--- NOTE | 2024-08-16 11:21 | P.CRDCN ---
History of Present Illness History of present illness: HISTORY OF PRESENT ILLNESS: This is a 73-year-old female with a past medical history significant for hypertension and paroxysmal atrial fibrillation. Patient follows in the office with Dr. Basilio but has not been seen in the office since 2022. We have been asked to see the patient in consultation for chest pain. Patient examined at the bedside in the emergency room. Patient states she has been experiencing vertigo since Friday. She also reports ports having some pain in her right arm for the past few weeks. She states yesterday she began to have some pain in the upper part of her chest with discomfort into her right arm. She states the pain was worse with movement. She also reports having some shooting pains in the left side of her chest yesterday. The patient does have reproducible pain this morning with chest wall palpation. At the time of examination patient denies any chest pain or pressure. She denies any shortness of breath. She states that she is normally very active and watches 2 of her grandkids daily. Patient does have a history of atrial fibrillation. She was previously prescribed Eliquis. She states a couple months ago she had to stop her Eliquis as she had some teeth pulled and she never resumed her anticoagulation. DIAGNOSTICS: - EKG reveals sinus mechanism with nonspecific ST-T wave changes. - Chest xray negative for acute findings. - Laboratory data: WBC 6.21. Hemoglobin 13.8. Platelet count 247. D-dimer 0.54. Sodium 134. Potassium 4.1. BUN 16. Creatinine 0.63. Troponin negative x 3. proBNP 142. - Current home cardiac medications include amlodipine 5 mg at night. - Most recent echocardiogram obtained in December 2021 revealed ejection fraction 50 to 55%, mild to moderate MR, mild TR - Patient underwent Lexiscan stress test in June 2022 which was negative for ischemia REVIEW OF SYSTEMS: At the time of my exam: CONSTITUTIONAL: Denies fever or chills. HEENT: Denies blurred vision, vision changes, or eye pain. Denies hemoptysis CARDIOVASCULAR: Denies chest pain. Denies orthopnea. Denies PND. Denies palpitations RESPIRATORY: Denies shortness of breath. GASTROINTESTINAL: Denies abdominal pain. Denies nausea or vomiting. HEMATOLOGIC: Denies bleeding disorders. GENITOURINARY: Denies any blood in urine. SKIN: Denies pruitis. Denies rash. PHYSICAL EXAM: VITAL SIGNS: Reviewed. GENERAL: Well-developed in no acute distress. HEENT: Head is normocephalic. Pupils are equal, round. Sclerae anicteric. Mucous membranes of the mouth are moist. Neck supple. No JVD or thyromegaly LUNGS: Respirations even and unlabored. Lungs essentially clear to auscultation bilaterally. HEART: Regular rate and rhythm. S1 and S2 heard. Systolic murmur noted. ABDOMEN: Soft. Nondistended. Nontender. EXTREMITIES: Normal range of motion. No clubbing or cyanosis. Peripheral pulses intact. No lower extremity edema NEUROLOGIC: Awake and alert. Oriented x 3. ASSESSMENT: Chest pain, troponin negative x 3 Vertigo Paroxysmal atrial fibrillation Mild to moderate mitral regurgitation Hypertension Obesity: BMI 34.9 PLAN: An acute coronary event has been ruled out Obtain 2D echo to assess cardiac structure and function Resume home dose of amlodipine Add lisinopril 5 mg daily for optimal blood pressure control Begin anticoagulation with Eliquis 5 mg twice a day this evening (as long as stress test is negative) Patient to undergo dobutamine stress echo today Further recommendations pending patient course Nurse practitioner note has been reviewed by physician. Signing provider agrees with the documented findings, assessment, and plan of care documented by CAGE SHIFT MANAGER as a scribe. 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 History of Any Multi-Drug Resistant Organisms: None Reported Past Surgical History: Bariatric Surgery, Breast Surgery, Cholecystectomy Additional Past Surgical History / Comment(s): rt breast core bx,right mastectomy, tummy tuck, liposuction,hiatal hernia repair,gastric bypass 1998,port removed Past Anesthesia/Blood Transfusion Reactions: Postoperative Nausea & Vomiting (PONV) Past Psychological History: Depression Smoking Status: Never smoker Past Alcohol Use History: None Reported Past Drug Use History: None Reported - Past Family History Father History Unknown: Yes Family Medical History: No Reported History Mother History Unknown: Yes Family Medical History: No Reported History Medications and Allergies Home Medications Medication Instructions Recorded Confirmed Type amLODIPine [Norvasc] 5 mg PO HS 01/23/22 08/16/24 History Allergies Allergy/AdvReac Type Severity Reaction Status Date / Time codeine Allergy Unknown Verified 08/16/24 08:22 losartan Allergy Dyspnea Verified 08/16/24 08:22 meperidine HCl [From Demerol] Allergy Unknown Verified 08/16/24 08:22 morphine Allergy Unknown Verified 08/16/24 08:22 Penicillins Allergy Rash/Hives/ Verified 08/16/24 08:22 Hallucinati ons Physical Exam Vitals: Vital Signs Temp Pulse Resp BP Pulse Ox 08/16/24 10:03 97.8 F 61 18 144/80 95 08/16/24 07:38 97.8 F 69 18 157/96 98 08/16/24 06:05 97.3 F L 66 16 151/93 97 08/16/24 00:37 97.9 F 64 18 153/88 96 Intake and Output 08/15/24 08/16/24 08/16/24 22:59 06:59 14:59 Other: Weight 95.254 kg Results 08/16/24 01:57 08/16/24 01:57 Cardiac Enzymes 08/16/24 08/16/24 08/16/24 Range/Units 01:57 01:57 05:35 AST 24 (14-36) U/L Troponin I <0.012 <0.012 (0.000-0.034) ng/mL 08/16/24 Range/Units 08:36 AST (14-36) U/L Troponin I <0.012 (0.000-0.034) ng/mL Coagulation 08/16/24 Range/Units 01:57 PT 11.0 (10.0-12.5) sec APTT 24.9 (22.0-30.0) sec CBC 08/16/24 Range/Units 01:57 WBC 6.21 (4.50-10.00) 10*3/uL RBC 4.58 (4.10-5.20) 10*6/uL Hgb 13.8 (12.0-15.0) g/dL Hct 42.0 (37.2-46.3) % Plt Count 247 (140-440) 10*3/uL Comprehensive Metabolic Panel 08/16/24 Range/Units 01:57 Sodium 137 (137-145) mmol/L Potassium 4.1 (3.5-5.1) mmol/L Chloride 103 (98-107) mmol/L Carbon Dioxide 27 (22-30) mmol/L BUN 16 (7-17) mg/dL Creatinine 0.63 (0.52-1.04) mg/dL Glucose 115 H (74-99) mg/dL Calcium 9.1 (8.4-10.2) mg/dL AST 24 (14-36) U/L ALT 17 (4-34) U/L Alkaline Phosphatase 70 (38-126) U/L Total Protein 6.9 (6.3-8.2) g/dL Albumin 3.9 (3.5-5.0) g/dL Current Medications Generic Name Dose Route Start Last Admin Trade Name Freq PRN Reason Stop Dose Admin Amlodipine Besylate 5 mg 08/16/24 21:00 Amlodipine 5 Mg Tab PO HS TASNEEM Apixaban 5 mg 08/16/24 21:00 Apixaban 5 Mg Tab PO BID [facility] Protocol Aspirin 81 mg 08/16/24 09:00 08/16/24 10:06 Aspirin 81 Mg PO 81 mg DAILY TASNEEM Administration Dobutamine HCl/Dextrose 500 mg 250 mls @ 28.576 mls/hr 08/16/24 09:28 / IV Solution IV 08/16/24 13:29 .[id number] PRN Per Protocol Protocol 10 MCG/KG/MIN Lisinopril 5 mg 08/16/24 09:30 08/16/24 10:05 Lisinopril 5 Mg Tab PO 5 mg DAILY TASNEEM Administration Meclizine HCl 25 mg 08/16/24 08:51 Meclizine 25 Mg Tab PO TID PRN Vertigo Naloxone HCl 0.2 mg 08/16/24 06:53 Naloxone 0.4 Mg/Ml 1 Ml Vial IV Q2M PRN Opioid Reversal Intake and Output 08/15/24 08/16/24 08/16/24 22:59 06:59 14:59 Other: Weight 95.254 kg 08/16/24 01:57 08/16/24 01:57
--- NOTE | 2024-08-16 12:52 | CA ---
Transthoracic Echo Report Name: Eden Pavon Age: 73 Gender: F : 1950 Exam Date: 08/16/2024 12:07 Exam Location: [facility] Ht (in): 65 Wt (lb): 210 Ordering Physician: Natasha Lucio Attending/Referring Phys: [id number], [employer] Investigator Kate Butterfield RDCS Procedure CPT: Indications: LV function, CP Cardiac Hx: Technical Quality: Fair Contrast 1: Total Dose (mL): Contrast 2: Total Dose (mL): MEASUREMENTS (Male / Female) Normal Values 2D ECHO LV Diastolic Diameter PLAX 3.8 cm 4.2 - 5.9 / 3.9 - 5.3 cm LV Systolic Diameter PLAX 2.7 cm IVS Diastolic Thickness 1.7 cm 0.6 - 1.0 / 0.6 - 0.9 cm LVPW Diastolic Thickness 1.6 cm 0.6 - 1.0 / 0.6 - 0.9 cm LV Relative Wall Thickness 0.9 RV Internal Dim ED PLAX 4.3 cm LA Systolic Diameter LX 3.7 cm 3.0 - 4.0 / 2.7 - 3.8 cm LV Diastolic Volume MOD BP 66.5 cm??? 67 - 155 / 56 - 104 cm??? LV Systolic Volume MOD BP 18.3 cm??? 22 - 58 / 19 - 49 cm??? LV Ejection Fraction MOD BP 72.6 % >= 55 % LV Diastolic Volume MOD 4C 61.5 cm??? LV Systolic Volume MOD 4C 21.6 cm??? LV Ejection Fraction MOD 4C 64.8 % LV Diastolic Length 4C 8.4 cm LV Systolic Length 4C 4.6 cm LV Diastolic Volume MOD 2C 27.4 cm??? LV Systolic Volume MOD 2C 14.3 cm??? LV Ejection Fraction MOD 2C 47.6 % LV Diastolic Length 2C 3.0 cm LV Systolic Length 2C 5.2 cm M-MODE Aortic Root Diameter MM 3.2 cm DOPPLER AV Peak Velocity 146.9 cm/s AV Peak Gradient 8.6 mmHg Mitral E Point Velocity 74.0 cm/s Mitral A Point Velocity 118.2 cm/s Mitral E to A Ratio 0.6 MV Deceleration Time 276.6 ms TR Peak Velocity 239.3 cm/s TR Peak Gradient 22.9 mmHg Right Ventricular Systolic Press 35.0 mmHg FINDINGS Left Ventricle Left ventricular ejection fraction is estimated at 55-60. Normal left ventricular systolic function with no obvious regional wall motion abnormalities. Severely increased left ventricular wall thickness. Right Ventricle Mildly right ventricular dilatation. Mild pulmonary hypertension. Right Atrium Normal right atrial size. No right atrial thrombus or mass seen. Left Atrium Normal left atrial size. No left atrial thrombus or mass present. Mitral Valve Mitral valve thickened. Moderate mitral annular calcification. No mitral stenosis, mild regurgitation Aortic Valve Aortic valve not well visualized. No aortic valve stenosis or regurgitation. Tricuspid Valve Structurally normal tricuspid valve. Mild tricuspid regurgitation. Pulmonic Valve Pulmonic valve not well visualized. No pulmonic regurgitation. Pericardium No pericardial effusion. Aorta Normal size aortic root and proximal ascending aorta. CONCLUSIONS Technically difficult study. Normal ventricular size and systolic function with left ventricular hypertrophy Limited Doppler study with mild mitral and tricuspid regurgitation and mild pulmonary hypertension Previewed by: Dr. Jose Antonio Quinones MD (Electronically Signed) Final Date: 16 August 2024 12:51
--- NOTE | 2024-08-16 13:02 | CA ---
Dobutamine Stress Echocardiogram Report Eden Pavon Age: 73 Gender: F : 1950 Exam Date: 08/16/2024 11:41 Exam Location: [facility] Ordering Physician: Natasha Lucio Referring Physician: NATASHA LUCIO,, [employer] [place]: Kate Butterfield RDCS Technologist: Ht (in): 65 Wt (lb): 210 Procedure CPT: Indication: CP ICD-9 Codes: Rhythm: Patient History: CHEST PAIN, FAMILY HX OF HEART DISEASE, ASTHMA Cardiac Medications: Medications in past 24 hours: Contrast: Definity Total Dose (mL): 2 Stress Results Protocol: Dobutamine Peak Dose (???g/kg/min): 40 Duration (min:sec): Atropine:(mg) N/A Target HR: 124 Double Product: [id number] Resting HR: 63 Resting BP: 145 / 100 Peak HR: 116 Peak BP: 186 / 92 Max Predicted HR: 146 79 % Max Predicted HR Stress Summary: The hemodynamic response to stress was normal. BP Response: Normal Reason for Termination: DIRECTED PER Cardiac Symptoms: NO SYMPTOMS ECG Analysis Resting EKG: Normal sinus rhythm, normal ECG Stress EK mm ST segment depression in the inferolateral leads at peak infusion Arrhythmia: Occasional PVCs Echo Analysis Base Echo Analysis: Normal resting echocardiogram. Low Echo Anaylsis: Normal wall thickening and motion Peak Echo Analysis: Normal wall motion augmentation with no hypokinesis or dyskinesis Recovery Echo: Normal wall motion MEASUREMENTS (Male/Female) Normal Values CONCLUSIONS Mildly abnormal electrocardiographic response to dobutamine infusion Normal stress echocardiogram with no evidence of stress induced ischemia Dr. Jose Antonio Quinones MD (Electronically Signed) Final Date: 16 August 2024 13:01
--- NOTE | 2024-08-16 14:16 | P.HPIM ---
History of Present Illness H&P Date: 08/16/24 Patient is a 73-year-old female with HTN, afib (not anticoagulated), breast cancer in remission presenting with acute chest pain. Patient states onset of chest pain occurred last evening at around 6 PM. She was laying in bed and felt a pressure-like chest pain located midsternum and describes as a constant shooting/sharp pain radiates to the right shoulder. Denies any exacerbating or alleviating factors. Admits to nausea but denies any shortness of breath vomiting, diaphoresis. Patient states she has a history of vertigo and has been feeling dizzy since Friday. Of note she says she has been dealing with this for the past 30 years. At time of interview patient denies any current chest pain. She says pain can be reproducible through palpation. Patient still states shoulder pain is still present. She says that she will often have spasms which Exna causes MS to hurt. Patient denies any fever, chills, cough, abdominal pain, urinary symptoms. EKG independently interpreted sinus bradycardia, rate 58 bpm, QTc 450 MS CXR independently interpreted no acute cardiopulmonary process Dobutamine stress echo displayed mildly abnormal EKG response to dobutamine infusion, normal stress echocardiogram with no evidence of stress-induced ischemia Echocardiogram displayed normal ventricular size and systolic function with left ventricular hypertrophy, EF 55-60%Limited Doppler study with mitral and tricuspid regurgitation and mild pulmonary hypertension Troponin <0.012 x 3, proBNP 143, D-dimer 0.54, WBC 6.21, Hgb 13.8, platelets 247, INR 1.0, sodium 137, BUN 16, creatinine 0.60 T 97.9 F, ME 64, RR 18, BP 153/88, O2 saturation 96% on room ED documentation reviewed. Review of systems: Pertinent positives and negatives as discussed in HPI, a complete review of systems was performed and all other systems are negative. Social history: Tobacco: former 11 pack year smoker. quit over 20 years ago Alcohol: Denies alcohol use Recreational drugs: Denies illicit drug use Physical examination: Vital signs reviewed General: non toxic, no distress, appears at stated age, normal weight Derm: no unusual rashes/lesions, warm Head: atraumatic, normocephalic, symmetric Eyes: EOMI, anicteric sclera, pupils equal round reactive to light ENT: Nose and ears atraumatic Mouth: no lip lesion, mucus membranes moist Cardiovascular: S1S2 reg, no murmur, positive dorsalis pedis pulse bilateral, no edema, pain on palpation Lungs: CTA bilateral, no rhonchi, no rales, no accessory muscle use Abdominal: soft, nontender to palpation, no guarding Ext: muscle strength 5 out of 5 in all 4 extremities grossly, no gross muscle atrophy Neuro: CN II-XI grossly intact, no gross focal neuro deficits Psych: Alert, oriented to person, place, and time Assessment/Plan: Patient is a 73-year-old female with HTN, afib (not anticoagulated), breast cancer in remission presenting with acute chest pain. #. Acute chest pain ACS ruled out Troponin <0.012 x 3 EKG independently interpreted displaying CXR independently interpreted displaying Aspirin 81 mg p.o. daily Lisinopril 5 mg p.o. daily Lipid panel, A1c, TSH ordered Cardiac telemetry Cardiology consulted, plan for dobutamine stress echo and echocardiogram Dobutamine stress echo displayed mildly abnormal EKG response to dobutamine infusion, normal stress echocardiogram with no evidence of stress-induced ischemia Echocardiogram displayed normal ventricular size and systolic function with left ventricular hypertrophy, EF 55-60%Limited Doppler study with mitral and tricuspid regurgitation and mild pulmonary hypertension #. Atrial fibrillation Patient is to be given anticoagulation with Eliquis Eliquis 5 mg twice a day this evening as long as stress test was negative per cardiology #. Hypertension Continue home amlodipine 5 mg p.o. at bedtime #. History of vertigo Antivert 25 mg p.o. 3 times daily as needed DVT prophylaxis: Heparin 5000 unit SQ every 8 hours The patient is admitted with an anticipated less than 2 midnight stay for evaluation of acute chest pain. CODE STATUS: Full code Discussed with: Patient Anticipated discharge place: Pending clinical course Carie Hernandez MD PGY-1 IM Dictation was produced using [employer] dictation software. please excuse any grammatical, word or spelling errors. I saw and evaluated the patient during the shah and critical portions of this encounter, and discussed the case in detail with the resident author of this note, I agree with the Assessment and Plan, and my changes, if any, are highlighted in blue. 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 History of Any Multi-Drug Resistant Organisms: None Reported Past Surgical History: Bariatric Surgery, Breast Surgery, Cholecystectomy Additional Past Surgical History / Comment(s): rt breast core bx,right mastectomy, tummy tuck, liposuction,hiatal hernia repair,gastric bypass 1998,port removed Past Anesthesia/Blood Transfusion Reactions: Postoperative Nausea & Vomiting (PONV) Past Psychological History: Depression Smoking Status: Never smoker Past Alcohol Use History: None Reported Past Drug Use History: None Reported - Past Family History Father History Unknown: Yes Family Medical History: No Reported History Mother History Unknown: Yes Family Medical History: No Reported History Medications and Allergies Home Medications Medication Instructions Recorded Confirmed Type amLODIPine [Norvasc] 5 mg PO HS 01/23/22 08/16/24 History Apixaban [Eliquis] 5 mg PO BID #60 tab 08/16/24 Rx lisinopriL [Zestril] 5 mg PO DAILY #30 tab 08/16/24 Rx Allergies Allergy/AdvReac Type Severity Reaction Status Date / Time codeine Allergy Unknown Verified 08/16/24 08:22 losartan Allergy Dyspnea Verified 08/16/24 08:22 meperidine HCl [From Demerol] Allergy Unknown Verified 08/16/24 08:22 morphine Allergy Unknown Verified 08/16/24 08:22 Penicillins Allergy Rash/Hives/ Verified 08/16/24 08:22 Hallucinati ons Physical Exam Osteopathic Statement: *. No significant issues noted on an osteopathic structural exam other than those noted in the History and Physical/Consult. Vitals: Vital Signs Temp Pulse Resp BP Pulse Ox 08/16/24 07:38 97.8 F 69 18 157/96 98 08/16/24 06:05 97.3 F L 66 16 151/93 97 08/16/24 00:37 97.9 F 64 18 153/88 96 Intake and Output 08/15/24 08/16/24 08/16/24 22:59 06:59 14:59 Other: Weight 95.254 kg Results CBC & Chem 7: 08/16/24 01:57 08/16/24 01:57 Labs: Abnormal Lab Results - Last 24 Hours (Table) 08/16/24 Range/Units 01:57 Glucose 115 H (74-99) mg/dL
--- NOTE | 2024-08-16 14:29 | P.DS ---
Providers Date of admission: 08/16/24 06:57 Discharge Diagnosis: Acute chest pain Paroxysmal atrial fibrillation Hypertension History of vertigo Hospital Course: Patient is a 73-year-old female with HTN, afib (not anticoagulated), breast cancer in remission presenting with acute chest pain. Patient states onset of chest pain occurred last evening at around 6 PM. She was laying in bed and felt a pressure-like chest pain located midsternum and describes as a constant shooting/sharp pain radiates to the right shoulder. Denies any exacerbating or alleviating factors. Admits to nausea but denies any shortness of breath vomiting, diaphoresis. Patient states she has a history of vertigo and has been feeling dizzy since Friday. Of note she says she has been dealing with this for the past 30 years. At time of interview patient denies any current chest pain. She says pain can be reproducible through palpation. Patient still states shoulder pain is still present. She says that she will often have spasms which Exna causes MS to hurt. Patient denies any fever, chills, cough, abdominal pain, urinary symptoms. EKG independently interpreted sinus bradycardia, rate 58 bpm, QTc 450 MS CXR independently interpreted no acute cardiopulmonary process Dobutamine stress echo displayed mildly abnormal EKG response to dobutamine infusion, normal stress echocardiogram with no evidence of stress-induced ischemia Echocardiogram displayed normal ventricular size and systolic function with left ventricular hypertrophy, EF 55-60%Limited Doppler study with mitral and tricuspid regurgitation and mild pulmonary hypertension Troponin <0.012 x 3, proBNP 143, D-dimer 0.54, WBC 6.21, Hgb 13.8, platelets 247, INR 1.0, sodium 137, BUN 16, creatinine 0.60 T 97.9 F, MT 64, RR 18, BP 153/88, O2 saturation 96% on room Patient was admitted for acute chest pain. Cardiology was consulted. Dobutamine stress echo and echocardiogram were unremarkable. She was placed back on Eliquis per cardiology for proximal atrial fibrillation. She has been cleared by cardiology standpoint. She has been discharged Eliquis and additional antihypertensive. She is to follow-up with cardiology and her PCP. She can be discharged home today. Vital signs reviewed and stable. Physical examination: Vital signs reviewed General: non toxic, no distress, appears at stated age, obese Derm: no unusual rashes/lesions, warm Head: atraumatic, normocephalic, symmetric Eyes: EOMI, anicteric sclera, pupils equal round reactive to light ENT: Nose and ears atraumatic Mouth: no lip lesion, mucus membranes moist Cardiovascular: S1S2 reg, no murmur, positive dorsalis pedis pulse bilateral, no edema Lungs: CTA bilateral, no rhonchi, no rales, no accessory muscle use Abdominal: soft, nontender to palpation, no guarding Ext: muscle strength 5 out of 5 in all 4 extremities grossly, no gross muscle atrophy Neuro: CN II-XI grossly intact, no gross focal neuro deficits Psych: Alert, oriented to person, place, and time A total of greater than 30 minutes of time were spent preparing this complex discharge summary. Patient was discharge on August 16, 2024 at 2:22 PM. Carie Hernandez MD PGY-1 IM Dictation was produced using [employer] dictation software. please excuse any grammatical, word or spelling errors. I saw and evaluated the patient during the shah and critical portions of this encounter, and discussed the case in detail with the resident author of this note, I agree with the Assessment and Plan, and my changes, if any, are highlighted in blue. Expected date of discharge: 08/16/24 Attending physician: Reji Smith MD Consults: 08/16/24 06:55 Consult Physician Routine Consulting Provider: Ross Diamond Consult Reason/Comments: Chest pain, hx of Afib Do you want consulting provider notified?: Yes, Notify in am Primary care physician: Edinson Rebolledo Plan - Discharge Summary New Discharge Prescriptions: New Apixaban [Eliquis] 5 mg PO BID #60 tab lisinopriL [Zestril] 5 mg PO DAILY #30 tab Continue amLODIPine [Norvasc] 5 mg PO HS Discharge Medication List amLODIPine [Norvasc] 5 mg PO HS 01/23/22 [History] Apixaban [Eliquis] 5 mg PO BID #60 tab 08/16/24 [Rx] lisinopriL [Zestril] 5 mg PO DAILY #30 tab 08/16/24 [Rx] Follow up Appointment(s)/Referral(s): Jose Antonio Quinones MD [STAFF PHYSICIAN] - 1 Week Edinson Rebolledo DO [Primary Care Provider] - 1-2 days Patient Instructions/Handouts: A-fib (Atrial Fibrillation) (DC), Chest Pain (DC ) Activity/Diet/Wound Care/Special Instructions: Follow up with PCP and cardiology. Discharge Disposition: HOME SELF-CARE
[2024-08-16 15:47] LABS: Chol/HDL Ratio 6.32 Ratio
[2024-08-16 16:50] VITALS: BP 148/96; PULSE 66; RESP 20
[2024-08-16] MEDS ORDERED: APIXABAN 5 MG TAB PO SCH (21:00)
[2024-08-16] MEDS ORDERED: amLODIPine 5 MG TAB PO SCH (21:00)
== END 2024-08-16 19:00 | disposition home or self-care (01) ==
LOC: EC 00:24 → INTOOBSV 06:57 → 6NMEDSUR 06:57
PROVIDERS: ADMIT Internal Medicine; ATTEND Internal Medicine
DX: R07.9 Chest pain, unspecified (principal); R42 Dizziness and giddiness; I48.0 Paroxysmal atrial fibrillation; I10 Essential (primary) hypertension; I34.0 Nonrheumatic mitral (valve) insufficiency; G47.33 Obstructive sleep apnea (adult) (pediatric); E11.319 Type 2 diabetes mellitus with unspecified diabetic retinopathy without macular edema; F32.A Depression, unspecified; E66.9 Obesity, unspecified; Z68.34 Body mass index [BMI] 34.0-34.9, adult; Z85.3 Personal history of malignant neoplasm of breast; Z87.891 Personal history of nicotine dependence; Z90.11 Acquired absence of right breast and nipple; Z79.01 Long term (current) use of anticoagulants; Z79.899 Other long term (current) drug therapy; Z88.0 Allergy status to penicillin; Z88.5 Allergy status to narcotic agent
CPT/HCPCS: 96360; 99285; 36415; 93005; 93306; 93351; 85379; 83880; 80061; 80053; 82150; 83735; 84484; 85025; 85610; 85730; 71046; G0378; Q9957

== ENCOUNTER → 2024-09-15 | Outpatient (CLI) | payer MEDICARE ==
--- NOTE | 2024-09-15 08:46 | US ---
EXAMINATION TYPE: US carotid duplex BILAT DATE OF EXAM: 09/15/2024 COMPARISON: 04/10/2018 CLINICAL INDICATION: Female, 73 years old with history of R42 DIZZINESS; Additional History: R42* Dizziness TECHNIQUE: Grayscale, color Doppler and spectral Doppler evaluation of the bilateral carotid systems and vertebral arteries. Indirect Doppler criteria was utilized. FINDINGS: EXAM MEASUREMENTS: RIGHT: Peak Systolic Velocity (PSV) cm/sec ----- Right CCA: 89.4 ----- Right ICA: 77.1 ----- Right ECA: 69.3 ICA/CCA ratio: 0.9 RIGHT: End Diastole cm/sec ----- Right CCA: 18.0 ----- Right ICA: 25.4 ----- Right ECA: 7.8 LEFT: Peak Systolic Velocity (PSV) cm/sec ----- Left CCA: 96.6 ----- Left ICA: 90.4 ----- Left ECA: 66.4 ICA/CCA ratio: 0.9 LEFT: End Diastole cm/sec ----- Left CCA: 17.0 ----- Left ICA: 28.8 ----- Left ECA: 5.3 VERTEBRALS (direction of flow): Right Vertebral: Antegrade Left Vertebral: Antegrade Rhythm: Normal [employer] NOTES: slightly limited exam due to vessel tortuosity minimal plaque seen bilaterally, no elevated velocities or significant stenosis seen bilaterally IMPRESSION: No hemodynamically significant internal carotid artery stenosis on either side. Criteria for Assigning % of Stenosis / Diameter reduction (Estimation based on the indirect measurements of the internal carotid artery velocities (ICA PSV). 1. Normal (no stenosis)=ICA PSV < 180 cm/s: ratio < 2.0: ICA EDV<40 cm/s. 2. Less than 50% stenosis=ICA PSV < 180 cm/s: ratio < 2.0: ICA EDV<40 cm/s. 3. 50 to 69% stenosis=ICA PSV of 180 to 230 cm/s: ration 2.0 ? 4.0: ICA EDV 40-100 cm/s. PSV 125-180 cm/sec and ICA/CCA PSV Ratio ? 2.0 is also consistent with 50-69% stenosis 4. Greater than 70% stenosis to near occlusion= ICA PSV > 230 cm/s: ratio > 4.0: ICA EDV > 100 cm/s. 5. Near occlusion= ICA PSV velocities may be low or undetectable: variable ratio and ICA EDV. 6. Total occlusion=unable to detect flow. [facility], , 09/15/2024 8:43 AM
== END | disposition home or self-care (01) ==
LOC: RADUSWWP 07:41
PROVIDERS: ATTEND Family Medicine
DX: R42 Dizziness and giddiness (principal)
CPT/HCPCS: 93880